=== PATIENT | female | born 1965 | race Caucasian/White ===

== ENCOUNTER 2019-07-31 15:25 | Observation (INO) | payer OTHER, SELFPAY ==
[2019-07-31] VITALS (10 sets, daily range): BP systolic 138–167; BP diastolic 84–108; PULSE 71–119; RESP 16–18; TEMP 36.2–36.9; O2SAT 99–100; BMI 23.8
--- NOTE | ~2019-07-31 | XR_ITS ---
XR chest 1V portable DATE: 07/31/2019 16:26 INDICATION: Chest tightness TECHNIQUE: Portable upright AP chest on 07/31/2019 at 1615 hours COMPARISON: None FINDINGS: Size. No hilar or mediastinal enlargement. No pulmonary infiltrate or consolidation, pleura l effusion or pulmonary vascular congestion or pneumothorax. IMPRESSION: No active cardiopulmonary disease Reviewed, dictated and finalized at location A.
--- NOTE | ~2019-07-31 | XR_ITS ---
XR abdomen NG/feed tube insert INDICATION: Evaluate NG tube position. TECHNIQUE: Limited KUB perform for evaluating NG tube . COMPARISON: No prior studies for comparison. FINDINGS: NG tube tip in the stomach, side port near the expected location of the GE junction. Visua lized bowel gas pattern is unremarkable. IMPRESSION: 1: NG tube tip in the stomach, side port near the expected location of the GE junction. Reviewed, dictated and finalized at location A.
--- NOTE | 2019-07-31 15:48 | ECG_ITS ---
Measurements Intervals [place] Rate: 92 P: 54 MO: 187 QRS: -20 QRSD: 80 T: 0 QT: 364 QTc: 450 Interpretive Statements SINUS RHYTHM RSR' IN V1 OR V2, CONSIDER RIGHT VENTRICULAR HYPERTROPHY OR RIGHT VCD LOW QRS VOLTAGE IN PRECORDIAL LEADS BORDERLINE T WAVE ABNORMALITY- ANT/INF LEADS BORDERLINE ECG Electronically Signed On 07-31-2019 16:37:30 CDT by Jalen Claudio D.O.
--- NOTE | 2019-07-31 15:51 | ED.GIBLEED ---
HPI - GI Bleed General Chief complaint: GI Bleed Stated complaint: Rectal/vomiting blood Time Seen by Provider: 07/31/19 15:32 Source: patient Mode of arrival: ambulatory Limitations: no limitations History of Present Illness HPI Narrative: 54 yo female with h/o HTN, alcohol abuse who presents for evaluation of hematemesis and melena. Patient states last night after dinner she developed upper abdominal cramping with nausea and vomiting. She states the first episode of emesis last night had undigested food and a small amount of blood. She states she didn't think much of it so she went to bed. She reports this morning she had had 3 episodes of hematemsis. She reports Diffuse abdominal cramping with 3 episodes of bright red blood emesis. Her last episode prior to arrival had only a small streak of blood with phlegm. She developed melena this morning. She denies dizziness, sob, or lightheadness. She denies history of cirrhosis , PUD, or esophageal varicese. She does admit to drinking 4 beers per night for 20 years. She denies history withdrawal seizures but she does reports increased shakiness without drinking. She last drank last night. She had EGD 10 years for GERD. MD complaint: gross hematemesis and melena Onset (ago): day(s) (1) Context: liver disease and alcohol abuse Associated symptoms: abdominal pain, nausea and vomiting Related Data Home Medications Medication Instructions Recorded Confirmed albuterol sulfate 90 mcg/actuation 2 puff INHALATION Q4-6H PRN gm 07/20/19 07/31/19 aerosol inhaler folic acid 400 mcg tablet 0.4 mg PO DAILY 07/20/19 07/31/19 Allergies Allergy/AdvReac Type Severity Reaction Status Date / Time codeine Allergy Unknown Unknown Verified 07/31/19 22:13 oats Allergy Hives Verified 07/31/19 22:13 Review of Systems Constitutional: Constitutional: Denies chills, Denies fever(s) and Denies weakness ENT: Denies dizziness Cardiovascular: Cardiovascular: Denies chest pain Respiratory: Respiratory: Denies cough and Denies dyspnea Gastrointestinal: Gastrointestinal: Reports abdominal pain, Denies bloating, Reports nausea and Reports vomiting Genitourinary: Genitourinary: Denies hematuria and Denies flank pain Psychiatric: Psychiatric: Reports anxiety PMFSH Past Medical History Medical History (Updated 07/31/19 @ 23:12 by Mary Beth Rey MD) GERD (gastroesophageal reflux disease) Hypertension Surgical History Surgical History (Updated 07/31/19 @ 23:05 by Mary Beth Rey MD) H/O hand surgery Social History Social History Smoking packs per day: 0.2 Smoking cigarettes per day: 4.0 Years smoked: 5 Smoking pack-years: 1.00 Smoking status: Former smoker Tobacco type: cigarettes Smoking end date: 04/22/09 Alcohol intake: current Drinks per week: 42 Substance use: never Substance use type: does not use Gender identity (if verbalized by the patient): Female Spiritual care concerns: No Agree to blood products: Yes Exam Const: General: alert Nutritional Appearance: thin Orientation/consciousness: patient oriented x3 HENMT: Head: normocephalic and atraumatic Mouth: Yes Normal oral and palatal mucosa present and Yes lip normal Throat: posterior oropharynx normal and tonsils normal Eyes: Conjunctivae: conjunctivae normal Pupils: Equal, round and reactive pupils present EOM: EOMs intact bilaterally Chest: Chest palpation & inspection: normal inspection of the chest Resp: Effort & Inspection: normal respiratory effort and no use of accessory muscles Auscultation: clear to auscultation bilaterally Cardio: Rate: tachycardic Rhythm: regular rhythm Heart sounds: no murmurs GI: Inspection: non-distended GI Palp: Yes Soft to palpation, Yes Tenderness to palpation present (GI) (diffuse), No Guarding due to palpation present (GI) and No Rigid due to palpation Rectal Exam: normal sphincter tone and heme positive stool (no gross blood)
[2019-07-31 16:09] LABS: Basophils Absolute Auto 0.1 K/mm3 (0.0-0.1); Basophils Percent Auto 1.2 % (0.2-1.2); Eosinophils Percent Auto 0.1 % (0-4.4); Hematocrit 33.6 % (37.0-47.0); Immature Granulocyte Absolute 0.04 K/mm3 (0.00-0.031); Immature Granulocyte Percent A 0.4 % (0-0.5); Lymphocytes Absolute Auto 0.79 K/mm3 (0.9-3.2); Lymphocytes Percent Auto 8.3 % (18.3-44.2); Mean Corpuscular HGB Conc 32.7 g/dl (32-36); Mean Corpuscular Hemoglobin 32.4 pg (26-34); Mean Corpuscular Volume 98.8 fl (80-100); Monocytes Absolute Auto 1.1 K/mm3 (0.1-0.6); Monocytes Percent Auto 11.9 % (2.6-8.5); Neutrophils Absolute Auto 7.4 K/mm3 (1.3-6.7); Neutrophils Percent Auto 78.1 % (45.5-73.1); Platelet Count Result 164 k/mm3 (150-375); Red Cell Distribution Width 16.4 % (11.5-14.5); White Blood Count 9.5 K/mm3 (4.5-10.0)
[2019-07-31] MEDS: LACTATED RINGERS 1,000 ML 999 ML IV CONT (16:11)
[2019-07-31] MEDS: ONDANSETRON INJ 4 MG/2 ML VIAL IV PUSH ×2 (16:11→21:23)
[2019-07-31 16:18] LABS: INR 1.2; Prothrombin Time 14.9 Seconds (11.1-14.7)
[2019-07-31 16:19] LABS: Partial Thromboplastin Time 36.3 SECONDS (22.3-36.8)
[2019-07-31 16:24] LABS: Ethanol < 10 mg/dL (<10); Lactic Acid Reflex 1.9 mmol/L (0.7-2.1)
[2019-07-31 16:31] LABS: Alanine Aminotransferase 25 U/L (4-35); Albumin Level 4.2 g/dL (3.5-5.1); Alkaline Phosphatase 222 U/L (38-126); Aspartate Amino Transferase 118 U/L (14-36); Bilirubin,Total 2.1 mg/dL (0.2-1.3); Blood Urea Nitrogen 13 mg/dL (7-17); Calcium 9.4 mg/dL (8.4-10.2); Carbon Dioxide 24 mmol/L (22-30); Chloride 101 mmol/L (98-107); Estimated CRCL calculation 115 ml/min; Estimated Glomerular Filt Rate > 60; Glucose 106 mg/dL (65-105); Lipase 121 U/L (23-300); Magnesium 1.7 mg/dL (1.6-2.3); Potassium 3.7 mmol/L (3.4-5.0); Sodium 135 mmol/L (137-145)
[2019-07-31] MEDS: PANTOPRAZOLE SODIUM IV 40 MG VIAL 80 MG IV PUSH (17:59)
--- NOTE | 2019-07-31 18:03 | PC.NURSE ---
1000 ml of water was lavaged through NG tube. 1st 500 mls was a light pink color, 2nd 500ml was more red and with clots. Informed Dr. Rey of this,
[2019-07-31 18:48] LABS: Hematocrit 27.8 % (37.0-47.0); Hemoglobin 8.9 g/dL (12.0-15.0)
--- NOTE | 2019-07-31 21:36 | ADMGEN ---
This patient, Na Brasher, was admitted to IMU Room 231-01 on 07/31/19 at 1930. Patient/family oriented to hospital policies and general routines including ID bracelet, bed and alarms, visiting hours, pain management, procedures, bathroom and other care routines, personal items, smoking policy, room service/diet, and visiting hours. Valuables list has been completed. Information on how to activate the Rapid Response Team has been discussed. Patient/Family are encouraged to report perceived risks to care and to ask questions if they do not understand what they are told or what they should do.
[2019-07-31] MEDS: LORAZEPAM INJ 2 MG/ML VIAL 1 MG IV PUSH (23:08)
--- NOTE | 2019-07-31 23:40 | PM.IMHP ---
H&P: HPI History of Present Illness Chief complaint: upper GI bleeding, alcohol abuse Narrative: Na Brasher is a 54 year old female who has a history of alcoholism. The patient drinks approximately 6 beers a day. The patient started that she started having hematemesis yesterday. She stated that she only had a beer and half yesterday and thought that it was too but she continued to drink while she was vomiting blood. The patient typically drinks every day. She continued to vomit blood today. Having dark stools. Last night she had some abdominal distention and cramping with nausea vomiting. This morning patient had 3 episodes of hematemesis. The patient had no fever no chills. She does have restless leg syndrome and she is having some hand tremors. She is very anxious at this time. Last time she drink was last night. She did have an EGD about 10 years ago but stated there were no problems. An NG-tube was placed in the right near. The patient is complaining of having some sore throat. H&H today 8.9 in 27.8. 2 units of packed red blood cells were ordered for the patient. Dr. alonso was consulted. The patient was started on a Protonix drip. She is just complaining her 1st unit of packed red blood cells. Ringer's was ordered as well. Date of service 07/31/2019 Review of Systems Review of Systems: All systems reviewed & are unremarkable except as noted in HPI and below Constitutional: Constitutional: Reports as per HPI and Reports no additional constitutional complaints Eyes: Eyes: Reports as per HPI and Reports no additional eye complaints ENT: Reports system reviewed and no additional complaints, except as documented and Reports Normal hearing present Cardiovascular: Cardiovascular: Reports no additional cardiovascular complaints Respiratory: Respiratory: Reports no additional respiratory complaints and Reports no additional respiratory complaints Gastrointestinal: Gastrointestinal: Reports as per HPI and Reports no additional gastrointestinal complaints Musculoskeletal: Musculoskeletal: Reports no additional musculoskeletal complaints Integumentary/Breasts: Skin/Breast: Reports system reviewed and no additional complaints, except as docu and Reports as per HPI Neurologic: Reports system reviewed and no additional complaints, except as documented, Reports as per HPI and Reports Normal hearing present Psychiatric: Psychiatric: Reports no additional psychiatric complaints and Reports as per HPI Endocrine: Endocrine: Reports no additional endocrine complaints Hematologic/Lymphatic: Hematologic/Lymphatic: Reports no additional hematologic/lymphatic complaints Allergic/Immunologic: Allergic/Immunologic: Reports no additional allergic/immunologic complaints [facility] Past Medical History Medical History (Updated 07/31/19 @ 23:57 by Na Mathis NP) Asthma GERD (gastroesophageal reflux disease) Hypertension Peripheral neuropathy Surgical History Surgical History (Updated 07/31/19 @ 23:57 by aN Mathis NP) H/O hand surgery Left hand with plates and screws. 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 She has 2 children. She desires to be a full code. Smoking packs per day: 0.2 Smoking cigarettes per day: 4.0 Years smoked: 5 Smoking pack-years: 1.00 Smoking status: Former smoker Tobacco type: cigarettes Smoking end date: 04/22/09 Alcohol intake: current Drinks per week: 42 Substance use: never Substance use type: does not use Living arrangements: with family Occupation/Edu
[2019-08-01] VITALS (16 sets, daily range): BP systolic 107–168; BP diastolic 73–91; PULSE 77–112; RESP 14–28; TEMP 36.3–37.3; O2SAT 97–100
[2019-08-01] MEDS: LACTATED RINGERS 1,000 ML 125 ML IV CONT (01:08)
[2019-08-01 01:34] LABS: Hematocrit 29.4 % (37.0-47.0); Hemoglobin 9.7 g/dL (12.0-15.0)
[2019-08-01 05:15] LABS: Basophils Absolute Auto 0.1 K/mm3 (0.0-0.1); Basophils Percent Auto 1.3 % (0.2-1.2); Eosinophils Absolute Auto 0.1 K/mm3 (0-0.3); Eosinophils Percent Auto 1.2 % (0-4.4); Hematocrit 29.2 % (37.0-47.0); Hemoglobin 9.8 g/dL (12.0-15.0); Immature Granulocyte Absolute 0.05 K/mm3 (0.00-0.031); Immature Granulocyte Percent A 0.5 % (0-0.5); Immature Platelet Fraction Pct 6.2 % (0.9-11.2); Lymphocytes Absolute Auto 1.12 K/mm3 (0.9-3.2); Mean Corpuscular HGB Conc 33.6 g/dl (32-36); Mean Corpuscular Hemoglobin 32.7 pg (26-34); Mean Corpuscular Volume 97.3 fl (80-100); Mean Platelet Volume 11.2 fl (7.4-10.4); Monocytes Absolute Auto 1.4 K/mm3 (0.1-0.6); Monocytes Percent Auto 15.1 % (2.6-8.5); Neutrophils Absolute Auto 6.5 K/mm3 (1.3-6.7); Neutrophils Percent Auto 69.9 % (45.5-73.1); Platelet Count Result 117 k/mm3 (150-375); White Blood Count 9.3 K/mm3 (4.5-10.0)
[2019-08-01 05:26] LABS: INR 1.3; Prothrombin Time 15.4 Seconds (11.1-14.7)
[2019-08-01 05:34] LABS: Alanine Aminotransferase 19 U/L (4-35); Albumin Level 3.3 g/dL (3.5-5.1); Alkaline Phosphatase 175 U/L (38-126); Aspartate Amino Transferase 78 U/L (14-36); Bilirubin,Total 1.7 mg/dL (0.2-1.3); Blood Urea Nitrogen 14 mg/dL (7-17); Calcium 8.2 mg/dL (8.4-10.2); Carbon Dioxide 23 mmol/L (22-30); Chloride 103 mmol/L (98-107); Estimated CRCL calculation 115 ml/min; Estimated Glomerular Filt Rate > 60; Glucose 100 mg/dL (65-105); Magnesium 1.5 mg/dL (1.6-2.3); Potassium 3.5 mmol/L (3.4-5.0); Sodium 133 mmol/L (137-145)
[2019-08-01 06:40] LABS: Folic Acid 17.9 ng/mL (2.76->20)
[2019-08-01 07:52] LABS: Free T4 Free Thyroxine Reflex 1.75 ng/dL (0.78-2.19)
--- NOTE | 2019-08-01 07:53 | WPDGICN ---
Assessment and Plan Assessment and plan (1) Upper gastrointestinal hemorrhage: Code(s): K92.2 - Gastrointestinal hemorrhage, unspecified Status: Acute Assessment and Plan: Upper GI bleeding manifested by melenic stools and hematemesis. Blood loss anemia identified. Plan is for IV Protonix. An EGD will be performed today. Patient's risk factor appears to be from alcohol use. Ulcer disease is suspected but varices cannot be excluded further recommendations will be given after endoscopy. (2) Hematemesis: Code(s): K92.0 - Hematemesis Status: Acute (3) GERD (gastroesophageal reflux disease): Code(s): K21.9 - Gastro-esophageal reflux disease without esophagitis Status: Acute Assessment and Plan: Patient has a history of chronic GE reflux disease. Notes frequent epigastric pain she is already taking omeprazole daily. Dose medicine may need to be adjusted after endoscopy is accomplished. (4) Alcoholism: Code(s): F10.20 - Alcohol dependence, uncomplicated Status: Acute Assessment and Plan: Patient has a long history of alcohol abuse. We may need to watch for signs of alcohol withdrawal if she discontinues this medication. GI Consult Note Consult date/time: 08/01/19 07:53 HPI: Na Brasher is a 54 year old female seen in evaluation at the request of the emergency room. Patient known to have a history of alcoholism. She typically drinks 6 beers a day. In usual state of health she vomited some blood on . On Saturday yesterday she began to have black melenic stools and vomited a large amount of bright red blood. This prompted her to go to the emergency room and was admitted. Patient denies abdominal pain. She denies any prior episodes of GI bleeding. She denies taking anticoagulation. She denies nonsteroidal anti-inflammatory agents. In the past she has been told she had GE reflux disease. She typically has mid epigastric discomfort for which she takes omeprazole daily. Family history is noncontributory. Review of Systems Review of Systems: All systems reviewed & are unremarkable except as noted in HPI and below PMFSH Past Medical History Medical History Asthma GERD (gastroesophageal reflux disease) Hypertension Peripheral neuropathy Surgical History Surgical History H/O hand surgery Left hand with plates and screws. History of tonsillectomy Family History Family History Father Family history of cardiovascular disease Hypertension Cancer CHF (congestive heart failure) Mother Brain cancer Skin cancer Social History Social History (Updated 08/01/19 @ 00:01 by Na Mathis NP) Social History: She is to Gulshan and desires to have him as a durable power senior technical support engineer for healthcare. She has 2 children. She desires to be a full code. 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
[2019-08-01] MEDS: LACTATED RINGERS 1,000 ML 150 ML IV CONT (08:31)
--- NOTE | 2019-08-01 08:44 | WPDANESEPPF ---
Anes - Initial Pre Proc Eval Procedure: Operation Date: 08/01/19 08:30 Proposed Procedures p Esophagogastroduodenoscopy - Adolfo Zamorano MD Date/Time: 08/01/19 08:44 Surgeon: Melony Suggs MD Pre Op Diagnosis: upper GI bleeding, alcohol abuse Patient Data Age: 54 Gender: F Height: 1.63 m Weight: 55.7 kg Last Vital Signs Temp 37.3 C 08/01/19 08:35 Pulse 86 08/01/19 08:35 Resp 20 08/01/19 08:35 BP 152/85 H 08/01/19 08:35 Pulse Ox 100 08/01/19 08:35 Allergies Allergy/AdvReac Type Severity Reaction Status Date / Time codeine Allergy Unknown Unknown Verified 07/31/19 22:13 oats Allergy Hives Verified 07/31/19 22:13 Home Medications Medication Instructions Recorded Confirmed Type omeprazole 40 mg capsule,delayed 40 mg PO DAILY #90 cap 03/18/19 07/31/19 Rx release albuterol sulfate 90 mcg/actuation 2 puff INHALATION Q4-6H PRN gm 07/20/19 07/31/19 History aerosol inhaler folic acid 400 mcg tablet 0.4 mg PO DAILY 07/20/19 07/31/19 History lisinopril 10 1 tablet PO DAILY #90 tablet 07/20/19 07/31/19 Rx mg-hydrochlorothiazide 12.5 mg tablet Laboratory Tests 07/31/19 07/31/19 07/31/19 16:02 16:02 16:02 WBC 9.5 K/mm3 K/mm3 (4.5-10.0) RBC 3.40 M/mm3 L M/mm3 (4.2-5.4) Hgb 11.0 g/dL L g/dL (12.0-15.0) Hct 33.6 % L % (37.0-47.0) MCV 98.8 fl fl (80-100) MCH 32.4 pg pg (26-34) MCHC 32.7 g/dl g/dl (32-36) RDW 16.4 % H % (11.5-14.5) Plt Count 164 k/mm3 k/mm3 (150-375) MPV 11.0 fl H fl (7.4-10.4) Immature Gran % (Auto) 0.4 % % (0-0.5) Neut % (Auto) 78.1 % H % (45.5-73.1) Lymph % (Auto) 8.3 % L % (18.3-44.2) Dolores % (Auto) 11.9 % H % (2.6-8.5) Eos % (Auto) 0.1 % % (0-4.4) Baso % (Auto) 1.2 % % (0.2-1.2) Lymph # (Auto) 0.79 K/mm3 L K/mm3 (0.9-3.2) [place] # (Auto) 1.1 K/mm3 H K/mm3 (0.1-0.6) Eos # (Auto) 0.0 K/mm3 K/mm3 (0-0.3) Baso # (Auto) 0.1 K/mm3 K/mm3 (0.0-0.1) Abs Immat Gran (auto) 0.04 K/mm3 H K/mm3 (0.00-0.031) Absolute Neuts (auto) 7.4 K/mm3 H K/mm3 (1.3-6.7) Absolute Nucleated RBC 0.0 K/mm3 K/mm3 (0.0-0.012) Nucleated RBC % 0.0 % % (0.0-0.2) % Immature Plt Fraction PT 14.9 Seconds H Seconds (11.1-14.7) INR 1.2 APTT 36.3 SECONDS SECONDS (22.3-36.8) Sodium Potassium Chloride Carbon Dioxide BUN Creatinine Estim Creat Clear Calc Estimated GFR Glucose Lactic Acid Calcium Magnesium Total Bilirubin AST ALT Alkaline Phosphatase Total Protein Albumin Lipase Vitamin B12 Folate TSH (Reflex) Free T4 Total T3 Ethyl Alcohol Blood Type O Positive Antibody Screen Negative Crossmatch See Detail 07/31/19 07/31/19 07/31/19 16:02 16:02 16:02 WBC RBC Hgb Hct MCV MCH MCHC RDW Plt Count MPV Immature Gran % (Auto) Neut % (Auto) Lymph % (Auto) Dolores % (Auto) Eos % (Auto) Baso % (Auto) Lymph # (Auto) Dolores # (Auto) Eos # (Auto) Baso # (Auto) Abs Immat Gran (auto) Absolute Neuts (auto) Absolute Nucleated RBC Nucleated RBC % % Immature Plt Fraction PT INR APTT Sodium
[2019-08-01 08:58] LABS: Total Triiodothyronine (T3) 1.17 NG/ML (0.97-1.69)
[2019-08-01] MEDS: THIAMINE HCL 200 MG/2 ML VIAL 100 MG IV PUSH (10:09)
[2019-08-01] MEDS: FOLIC ACID 1 MG/0.2 ML INJ IV PUSH (10:09)
[2019-08-01] MEDS: MAGNESIUM SULF 2 GM/WATER 50ML 2 GM/50 ML BAG IVPB (10:10)
--- NOTE | 2019-08-01 11:55 | PC.NURSE ---
This patient, Na Brasher, was transferred to [facility] on 08/01/19 at 1155. Personal belongings sent with patient. Belongings list checked and signed with receiving RN. Report given to YESSICA Bui. Appropriate documentation sent with patient.
--- NOTE | 2019-08-01 12:12 | PC.NURSE ---
This patient, Na Brasher, was received from [facility] on 08/01/19 at 1212. Personal belongings list checked and signed. Patient/family oriented to unit policies and routines
[2019-08-01 12:30] LABS: Basophils Absolute Auto 0.1 K/mm3 (0.0-0.1); Basophils Percent Auto 1.1 % (0.2-1.2); Eosinophils Absolute Auto 0.1 K/mm3 (0-0.3); Eosinophils Percent Auto 0.9 % (0-4.4); Hematocrit 31.5 % (37.0-47.0); Hemoglobin 10.3 g/dL (12.0-15.0); Immature Granulocyte Absolute 0.05 K/mm3 (0.00-0.031); Immature Granulocyte Percent A 0.5 % (0-0.5); Lymphocytes Absolute Auto 0.87 K/mm3 (0.9-3.2); Lymphocytes Percent Auto 9.2 % (18.3-44.2); Mean Corpuscular HGB Conc 32.7 g/dl (32-36); Mean Corpuscular Hemoglobin 32.1 pg (26-34); Mean Corpuscular Volume 98.1 fl (80-100); Monocytes Absolute Auto 1.3 K/mm3 (0.1-0.6); Monocytes Percent Auto 13.2 % (2.6-8.5); Neutrophils Absolute Auto 7.1 K/mm3 (1.3-6.7); Neutrophils Percent Auto 75.1 % (45.5-73.1); Platelet Count Result 118 k/mm3 (150-375); Red Blood Count 3.21 M/mm3 (4.2-5.4); Red Cell Distribution Width 16.3 % (11.5-14.5); White Blood Count 9.5 K/mm3 (4.5-10.0)
--- NOTE | 2019-08-01 13:07 | PM.IMPN ---
Progress Note: A&P Assessment and Plan (1) Upper gastrointestinal hemorrhage: Code(s): K92.2 - Gastrointestinal hemorrhage, unspecified Status: Acute Assessment and Plan: . She received 2 units of packed red blood cells. EGD today varices which were banded. Patient is on a Protonix drip. Zofran for nausea. Then continue with IV fluids. Clear liquids started..hgb stable at 9.8 (2) Alcohol withdrawal: Qualifiers: Complication of substance-induced condition: uncomplicated Qualified Code(s): F10.230 - Alcohol dependence with withdrawal, uncomplicated Code(s): F10.239 - Alcohol dependence with withdrawal, unspecified Status: Acute Assessment and Plan: Continue to monitor CIWA score. Ativan p.r.n. for anxiety and alcohol withdrawal. At this time her symptoms are mild.and schedule librium 25 q 8 (3) Restless leg syndrome: Code(s): G25.81 - Restless legs syndrome Status: Acute Assessment and Plan: Patient used to take gabapentin but no longer takes gabapentin. . She has p.r.n. Ativan. (4) Peripheral neuropathy: Code(s): G62.9 - Polyneuropathy, unspecified Status: Acute Assessment and Plan: She no longer takes gabapentin. Hopefully the p.r.n. Ativan will help. (5) Anxiety: Code(s): F41.9 - Anxiety disorder, unspecified Status: Acute Assessment and Plan: P.r.n. Ativan. and now po librium (6) Asthma: Code(s): J45.909 - Unspecified asthma, uncomplicated Status: Acute Assessment and Plan: P.r.n. albuterol. (7) Hypertension: Code(s): I10 - Essential (primary) hypertension Status: Acute Assessment and Plan: bp rebounding so restart MARIANA am 08/01 Subjective Date/time seen: 08/01/19 13:07 Interval history: 54-year-old hypertensive white female alcoholic presented with vomiting blood. EGD today revealed varices with stigmata of recent bleeding. Presently no nausea or abdominal pain and started on clear liquids per GI. Exam Narrative: Exam Narrative: Blood pressure 142/82 pulse is 86 saturating 100% room air afebrile Pupils equal reactive to light sclera appear anicteric Lungs clear CV regular rate rhythm no murmurs Abdomen is soft nontender bowel sounds are present Extremities without edema distal pulses are 2+ Neuro alert cooperative pleasant no focal deficits Objective Data Vital Signs Vital Signs: Vital Signs - 24 hr 07/31/19 15:29 07/31/19 16:40 07/31/19 18:41 Temperature 36.9 C Pulse Rate 119 H 101 H 89 Pulse Rate [Monitor] Respiratory Rate 18 18 Blood Pressure 167/97 H 146/84 H 146/108 H Pulse Oximetry 100 100 07/31/19 19:30 07/31/19 19:40 07/31/19 22:00 Temperature 36.2 C L Pulse Rate 93 94 103 H Pulse Rate [Monitor] Respiratory Rate 18 18 Blood Pressure 146/88 H Pulse Oximetry 100 100 07/31/19 22:09 07/31/19 22:19 07/31/19 22:24 Temperature 36.9 C 36.6 C Pulse Rate 71 101 H Pulse Rate [Monitor] 71 Respiratory Rate 16 16 Blood Pressure 159/93 H 143/90 H Pulse Oximetry 100 99 07/31/19 23:24 08/01/19 00:00 08/01/19 00:24 Temperature 36.3 C L 37.1 C 36.3 C L Pulse Rate 84 82 82 Pulse Rate [Monitor] 82 Respiratory Rate 16 16 16 Blood Pressure 148/85 H 141/90 H 152/76 H Pulse Oximetry 99 98 99 08/01/19 00:48 08/01/19 02:00 08/01/19 04:00 Temperature 36.6 C 36.8 C Pulse Rate 81 92 104 H Pulse Rate [Monitor] 104 H Respiratory Rate 16 16 Blood Pressure 168/91 H 146/89 H Pulse Oximetry 99 100 08/01/19 06:00 08/01/19 08:00 08/01/19 08:14 Temperature 37.1 C Pulse Rate 80 93 92 Pulse Rate [Monitor] Respiratory Rate 14 Blood Pressure 146/89 H Pulse Oximetry 100 08/01/19 08:35 08/01/19 09:11 08/01/19 09:21 Temperature 37.3 C Pulse Rate 86 97 88 Pulse Rate [Monitor] Respiratory Rate 20 28 H 26 H Blood Pressure 152/85 H 107/73 120/85 Pulse Oximetry 100 97 100 08/01/19 09:31 0
[2019-08-01] MEDS: LACTATED RINGERS 1,000 ML 75 ML IV CONT (14:27)
[2019-08-01] MEDS: POTASSIUM CHLORIDE 20 MEQ TABLET 40 MEQ PO (14:28)
[2019-08-01] MEDS: lisinopriL 10 MG TABLET PO (14:28)
[2019-08-01] MEDS: CHLORDIAZEPOXIDE 25 MG CAPSULE PO ×2 (14:28→22:23)
[2019-08-02] MEDS: LACTATED RINGERS 1,000 ML 75 ML IV CONT (03:24)
[2019-08-02 04:51] LABS: Basophils Absolute Auto 0.1 K/mm3 (0.0-0.1); Basophils Percent Auto 0.9 % (0.2-1.2); Eosinophils Absolute Auto 0.2 K/mm3 (0-0.3); Eosinophils Percent Auto 2.9 % (0-4.4); Hematocrit 27.9 % (37.0-47.0); Hemoglobin 8.9 g/dL (12.0-15.0); Immature Granulocyte Absolute 0.02 K/mm3 (0.00-0.031); Immature Granulocyte Percent A 0.3 % (0-0.5); Lymphocytes Absolute Auto 1.01 K/mm3 (0.9-3.2); Lymphocytes Percent Auto 13.4 % (18.3-44.2); Mean Corpuscular HGB Conc 31.9 g/dl (32-36); Mean Corpuscular Hemoglobin 31.8 pg (26-34); Mean Corpuscular Volume 99.6 fl (80-100); Mean Platelet Volume 10.8 fl (7.4-10.4); Monocytes Absolute Auto 1.1 K/mm3 (0.1-0.6); Monocytes Percent Auto 14.5 % (2.6-8.5); Neutrophils Absolute Auto 5.1 K/mm3 (1.3-6.7); Platelet Count Result 116 k/mm3 (150-375); Red Cell Distribution Width 16.1 % (11.5-14.5); White Blood Count 7.5 K/mm3 (4.5-10.0)
[2019-08-02 05:05] LABS: Alanine Aminotransferase 20 U/L (4-35); Alkaline Phosphatase 137 U/L (38-126); Aspartate Amino Transferase 94 U/L (14-36); Bilirubin,Total 1.4 mg/dL (0.2-1.3); Blood Urea Nitrogen 12 mg/dL (7-17); Calcium 8.2 mg/dL (8.4-10.2); Carbon Dioxide 25 mmol/L (22-30); Chloride 106 mmol/L (98-107); Estimated CRCL calculation 115 ml/min; Estimated Glomerular Filt Rate > 60; Glucose 100 mg/dL (65-105); Magnesium 1.8 mg/dL (1.6-2.3); Phosphorus 3.2 mg/dL (2.5-4.5); Potassium 3.8 mmol/L (3.4-5.0); Sodium 134 mmol/L (137-145)
[2019-08-02 05:47] VITALS: BP 129/68; PULSE 93; RESP 18; TEMP 36.7; O2SAT 99
[2019-08-02] MEDS: CHLORDIAZEPOXIDE 25 MG CAPSULE PO (06:31)
--- NOTE | 2019-08-02 07:59 | WPDGIPROGNO ---
Progress Note: A&P Additional Plan Patient alert and comfortable this morning. No significant additional bleeding described. No some substernal discomfort after banding yesterday. Tolerating liquid diet without difficulty. Physical exam alert. Vital signs stable. HEENT exam unremarkable. She is anicteric. Lungs are clear to auscultation and percussion. Heart without murmur. Abdomen is soft. No significant tenderness. She reports pain in the low mid substernal area. Labs reveal total bilirubin 1.4, direct bilirubin 0, AST 94, ALT 20, alk-phos 137. Hemoglobin 8.9, hematocrit 27.9. Impression 1. Esophageal varices. Status post banding. These appear to have been etiology for recent GI bleeding. Blood loss anemia now stable after transfusion. 2. Alcoholic hepatitis. May have a component of underlying cirrhosis as well. 3. Alcohol abuse. Plan to advance to a soft diet. Continue proton pump inhibitors after discharge. She may benefit from low-dose beta-barron therapy such as Inderal. Follow-up EGD in 2 months advised for additional banding. Hopefully we can discharge her later today. Subjective Date/time seen: 08/02/19 07:59 Objective Data Vital Signs Vital Signs: Vital Signs - 24 hr 08/01/19 08:00 08/01/19 08:14 08/01/19 08:35 Temperature 37.1 C 37.3 C Pulse Rate 93 92 86 Respiratory Rate 14 20 Blood Pressure 146/89 H 152/85 H Pulse Oximetry 100 100 08/01/19 09:11 08/01/19 09:21 08/01/19 09:31 Temperature Pulse Rate 97 88 83 Respiratory Rate 28 H 26 H 23 H Blood Pressure 107/73 120/85 135/82 Pulse Oximetry 97 100 100 08/01/19 10:25 08/01/19 12:10 08/01/19 14:00 Temperature 36.5 C 36.6 C Pulse Rate 86 88 77 Respiratory Rate 16 16 Blood Pressure 142/82 H 153/80 H Pulse Oximetry 100 99 08/01/19 21:27 08/02/19 05:47 Temperature 36.6 C 36.7 C Pulse Rate 87 93 Respiratory Rate 16 18 Blood Pressure 124/75 129/68 Pulse Oximetry 100 99 Intake/Output Intake/Output: Intake & Output 07/30/19 07/31/19 08/01/19 08/02/19 23:59 23:59 23:59 23:59 Intake Total 1000 3711 989 Output Total 400 300 950 Balance 600 3411 39 Meds/Results Medications: Active Medications Generic Name Dose Route Start Last Admin Trade Name Freq PRN Reason Stop Dose Admin Acetaminophen 650 mg 08/01/19 14:14 Tylenol Tablet PO Q6H PRN Mild Pain (1-3) or Fever Albuterol 2 puff 07/31/19 22:31 Proventil Hfa INHALATION Q4-6H PRN Shortness Of Breath Or Wheezing Chlordiazepoxide HCl 25 mg 08/01/19 14:00 08/02/19 06:31 Librium Po PO 25 mg Q8HR LEWIS Administration Folic Acid 1 mg 08/01/19 09:00 08/01/19 10:09 Folic Acid Inj IV PUSH 1 mg QAM LEWIS Administration Lactated Ringer's 1,000 mls @ 75 mls/hr 07/31/19 18:10 08/02/19 03:24 Lr - Lactated Ringers Iv IV CONT 75 mls/hr .[id number] LEWIS Administration Pantoprazole Sodium 80 mg/ 500 mls @ 50 mls/hr 08/01/19 03:30 08/02/19 03:23 Dextrose IV CONT 50 mls/hr .Q10H LEWIS Administration Lisinopril 10 mg 08/01/19 09:00 08/01/19 14:28 Prinivil PO 10 mg DAILY LEWIS Administration Lorazepam 1 mg 07/31/19 22:29 07/31/19 23:08 Ativan Inj IV PUSH 1 mg Q4H PRN Administration Anxiety Ondansetron HCl 4 mg 07/31/19 18:10 07/31/19 21:23 Zofran Inj IV PUSH 4 mg Q4H PRN Administration Nausea Phenol 1 spray 07/31/19 23:52 Chloraseptic [place] MUCOUS MEM PRN PRN Sore Throat Thiamine HCl 100 mg 08/01/19 09:00 08/01/19 10:09 Thiamine Hcl Inj IV PUSH 100 mg QAM LEWIS Administration Radiology Results: ITS Impressions Chest X-Ray 07/31/19 16:27 IMPRESSION: No active cardiopulmonary disease Abdomen X-Ray 07/31/19 18:04 IMPRESSION: 1: NG tube tip in the stomach, side port near the expected location of the GE junction. Labs Labs: Laboratory Results - last 24 hr 08/01/19 08/01/1907/21
--- NOTE | 2019-08-02 08:15 | WPDANESPN ---
Anes - Prog Note Post-Op Date/Time: 08/02/19 08:15 Cardiovascular status: normal Respiratory status: normal Airway patency: baseline Mental status: baseline Post-Op hydration status: normal Vital Signs: Last Vital Signs Temp 36.7 C 08/02/19 05:47 Pulse 93 08/02/19 05:47 Resp 18 08/02/19 05:47 BP 129/68 08/02/19 05:47 Pulse Ox 99 08/02/19 05:47 Pain Score (VAS): 0/10. Patient resting in bed at time of assessment, appears comfortable. I/O: Intake & Output 08/01/19 08/02/19 08/02/19 23:59 07:59 15:59 Intake Total 1111 989 Output Total 950 Balance 1111 39 Laboratory Tests 08/02/19 04:32 08/02/19 04:32 08/01/19 08/01/19 08/02/19 04:32 12:21 04:32 WBC 9.5 RBC 3.21 L Hgb 10.3 L Hct 31.5 L MCV 98.1 MCH 32.1 MCHC 32.7 RDW 16.3 H Plt Count 118 L MPV 11.0 H Immature Gran % (Auto) 0.5 Neut % (Auto) 75.1 H Lymph % (Auto) 9.2 L [place] % (Auto) 13.2 H Eos % (Auto) 0.9 Baso % (Auto) 1.1 Lymph # (Auto) 0.87 L [place] # (Auto) 1.3 H Eos # (Auto) 0.1 Baso # (Auto) 0.1 Abs Immat Gran (auto) 0.05 H Absolute Neuts (auto) 7.1 H Absolute Nucleated RBC 0.0 Nucleated RBC % 0.0 % Immature Plt Fraction 6.0 Sodium 134 L Potassium 3.8 Chloride 106 Carbon Dioxide 25 BUN 12 Creatinine 0.40 L Estim Creat Clear Calc 115 Estimated GFR > 60 Glucose 100 Calcium 8.2 L Phosphorus 3.2 Magnesium 1.8 Total Bilirubin 1.4 H Direct Bilirubin 0.0 AST 94 H ALT 20 Alkaline Phosphatase 137 H Total Protein 6.0 L Albumin 3.0 L Total T3 1.17 08/02/19 04:32 WBC 7.5 RBC 2.80 L Hgb 8.9 L Hct 27.9 L MCV 99.6 MCH 31.8 MCHC 31.9 L RDW 16.1 H Plt Count 116 L MPV 10.8 H Immature Gran % (Auto) 0.3 Neut % (Auto) 68.0 Lymph % (Auto) 13.4 L [place] % (Auto) 14.5 H Eos % (Auto) 2.9 Baso % (Auto) 0.9 Lymph # (Auto) 1.01 [place] # (Auto) 1.1 H Eos # (Auto) 0.2 Baso # (Auto) 0.1 Abs Immat Gran (auto) 0.02 Absolute Neuts (auto) 5.1 Absolute Nucleated RBC 0.0 Nucleated RBC % 0.0 % Immature Plt Fraction Sodium Potassium Chloride Carbon Dioxide BUN Creatinine Estim Creat Clear Calc Estimated GFR Glucose Calcium Phosphorus Magnesium Total Bilirubin Direct Bilirubin AST ALT Alkaline Phosphatase Total Protein Albumin Total T3 Post-procedural complaints: none Patient Feedback: Patient satisfied with anesthetic care.
[2019-08-02 08:56] VITALS: PULSE 93
[2019-08-02] MEDS: PANTOPRAZOLE 40 MG TABLET PO (08:56)
[2019-08-02] MEDS: PROPRANOLOL HCL 20 MG TABLET PO (08:56)
[2019-08-02] MEDS: FOLIC ACID 1 MG/0.2 ML INJ IV PUSH (08:56)
[2019-08-02] MEDS: lisinopriL 10 MG TABLET PO (08:57)
[2019-08-02] MEDS: THIAMINE HCL 200 MG/2 ML VIAL 100 MG IV PUSH (08:57)
[2019-08-02 14:00] VITALS: BP 107/59; PULSE 78; RESP 16; TEMP 37.2; O2SAT 99
--- NOTE | 2019-08-02 17:40 | PM.DS ---
DS: Diagnosis Admitting Diagnosis Admitting Diagnosis: Gastrointestinal hemorrhage, unspecified Discharge Diagnosis (1) Upper gastrointestinal hemorrhage: Code(s): K92.2 - Gastrointestinal hemorrhage, unspecified Status: Acute Assessment and Plan: . She received 2 units of packed red blood cells. EGD 07/31 varices which were banded. Patient is on a Protonix 40 b.i.d. now. Tolerating soft diet and hemoglobin stable at 8.9 with no evidence of further blood loss (2) Alcohol withdrawal: Qualifiers: Complication of substance-induced condition: uncomplicated Qualified Code(s): F10.230 - Alcohol dependence with withdrawal, uncomplicated Code(s): F10.239 - Alcohol dependence with withdrawal, unspecified Status: Acute Assessment and Plan: Continue to monitor CIWA score. Ativan p.r.n. for anxiety and alcohol withdrawal while here but no evidence of overt withdrawal symptoms She was instructed not to drink and given information for rehab. (3) Restless leg syndrome: Code(s): G25.81 - Restless legs syndrome Status: Acute Assessment and Plan: Patient used to take gabapentin but no longer takes gabapentin. . (4) Peripheral neuropathy: Code(s): G62.9 - Polyneuropathy, unspecified Status: Acute Assessment and Plan: She no longer takes gabapentin. (5) Anxiety: Code(s): F41.9 - Anxiety disorder, unspecified Status: Acute Assessment and Plan: P.r.n. Ativan. While here (6) Asthma: Code(s): J45.909 - Unspecified asthma, uncomplicated Status: Acute Assessment and Plan: P.r.n. albuterol. (7) Hypertension: Code(s): I10 - Essential (primary) hypertension Status: Acute Assessment and Plan: Restarted her FABRICE-inhibitor did today. Was probable portal hypertension GI started Inderal 20 b.i.d.. Patient was instructed to continue her usual antihypertensive with propanolol and monitor blood pressure at home. She will follow-up with her primary care within 2 weeks and further adjustments can be made at that time if need be possible discontinue diuretic can continue Fabrice with beta-barron or even beta-barron alone (8) Elevated LFTs: Code(s): R79.89 - Other specified abnormal findings of blood chemistry Status: Acute Assessment and Plan: Thought all secondary to alcohol. Alkaline phosphatase 222 down to 137, AST 198 down to 94, and bilirubin 2.1 down to 1.4. Complete metabolic profile along with CBC to be drawn within 2 weeks DS: Summary Hospital Course Hospital Course: 54-year-old hypertensive white female alcoholic admitted with vomiting blood. She received 2 units of packed cells and bleeding subsided. EGD 411 revealed varices with stigmata of bleeding but no active bleeding. They were banded per GI. Hemoglobin a.m. of discharge 8.9. She tolerated soft diet without any complaints and was able to be discharged home. Inderal 20 mg b.i.d. was added for probable portal hypertension. She will follow-up with primary care within 2 weeks and have a CBC and CMP prior to her visit. Follow-up with Dr. Zamorano with and 68 weeks for repeat EGD Time Spent with Patient Time attestation: Total time spent providing and/or coordinating discharge services: 35 minutes Exam Narrative: Exam Narrative: Condition on discharge Blood pressure 108/60 pulse is 78 saturating 99% on room air temp 37.2? Lungs clear CV regular rate rhythm Abdomen soft nontender bowel sounds normal active Extremities without edema good distal pulses Neuro alert pleasant cooperative no focal deficits She is tolerating a soft diet up and about without any problems and will be discharged home to follow-up with primary care within [address] robertson within 6-8 weeks DS: Data Data Completed and Pending Labs on day of discharge: Labs from last 24 hours 08/02/19 08/02/19 04:32 04:32 WBC 7.5 RBC 2.80 L Hgb 8.9 L
== END 2019-08-02 14:30 | disposition home or self-care (01) ==
LOC: ANHED 15:48 → ANHIMU 23:12 → ANH2MED 08-01 18:57 → ANHIMU 08-03 12:02
PROVIDERS: Internal Medicine Gastroenterology; Nurse Practitioner; Admitting Provider Family Medicine; Emergency Provider General Practice; PCP Family Medicine; Visit Provider Internal Medicine
PROC: 0DJ08ZZ Inspection of Upper Intestinal Tract, Via Natural or Artificial Opening Endoscopic (ICD-10-PCS; CPT 43235; principal; 2019-08-01 08:30)
DX: K92.2 Gastrointestinal hemorrhage, unspecified (principal); F10.230 Alcohol dependence with withdrawal, uncomplicated; I85.00 Esophageal varices without bleeding; K21.9 Gastro-esophageal reflux disease without esophagitis; K44.9 Diaphragmatic hernia without obstruction or gangrene; D50.0 Iron deficiency anemia secondary to blood loss (chronic); F41.9 Anxiety disorder, unspecified; R79.89 Other specified abnormal findings of blood chemistry; G25.81 Restless legs syndrome; I10 Essential (primary) hypertension; J45.909 Unspecified asthma, uncomplicated; G62.9 Polyneuropathy, unspecified; Z79.899 Other long term (current) drug therapy; Z87.891 Personal history of nicotine dependence
CPT/HCPCS: 43244; 36415; 36430; 71045; 80053; 80307; 82248; 82607; 82746; 83605; 83690; 83735; 84100; 84439; 84443; 84480; 85014; 85018; 85025; 85055; 85610; 85730; 86850; 86900; 86901; 86923; 93005; 96361; 96365; 96366; 96375; 96376; 99285; A9270; C9113; G0378; J2060; J2405; J2704; J3411; J3475; J7060; J7120; P9016

== ENCOUNTER 2019-10-03 01:13 | Outpatient (CLI) | payer OTHER, SELFPAY ==
[2019-10-03 16:42] LABS: SARS-CoV-2 RNA PCR Negative
== END 2019-10-03 01:14 | disposition home or self-care (01) ==
LOC: ANHCOVIDDT 01:14
PROVIDERS: PCP Family Medicine; Visit Provider Internal Medicine Gastroenterology
DX: Z01.812 Encounter for preprocedural laboratory examination (principal); Z20.828 Contact with and (suspected) exposure to other viral communicable diseases
CPT/HCPCS: 87635; C9803; U0003

== ENCOUNTER 2019-10-06 00:18 | Day surgery (SDC) | payer OTHER, SELFPAY ==
[2019-09-30 07:58] VITALS: BMI 19.6
[2019-10-06 08:28] VITALS: BP 142/80; PULSE 71; RESP 18; TEMP 37.1; O2SAT 100
[2019-10-06] MEDS: LACTATED RINGERS 1,000 ML 150 ML IV CONT (08:42)
--- NOTE | 2019-10-06 09:06 | WPDGICN ---
Assessment and Plan Assessment and plan (1) Esophageal varices: Code(s): I85.00 - Esophageal varices without bleeding Status: Acute Assessment and Plan: Plan is for follow-up EGD and possible placement of additional bands on distal esophageal varices. Beta-barron prophylaxis is encouraged to minimize recurrent variceal bleeding. Long-term alcohol of avoidance is advised. (2) Portal hypertension: Code(s): K76.6 - Portal hypertension Status: Acute Assessment and Plan: Patient has had bleeding from esophageal varices. Alcoholic liver disease is suspected. She may have underlying cirrhosis. Patient is advised to continue alcohol avoidance. Supportive care watch for complications advised at this time. (3) Alcoholism: Code(s): F10.20 - Alcohol dependence, uncomplicated Status: Acute GI Consult Note Consult date/time: 10/06/19 09:06 HPI: Na Brasher is a 54 year old female Seen in evaluation at the request of Dr. Aleida Casanova. Patient recently hospitalized in July of 2019 with hematemesis. Found to have esophageal varices at the time of endoscopy. Esophageal banding was placed she has done well since that time. No additional bleeding has been noted she denies abdominal pain. She denies any additional bleeding. Her weight has remained stable. Patient has been maintained on Protonix 40 mg p.o. b.i.d. with beta-barron suppression since that time. Patient has a history of portal hypertension alcohol abuse. Alcoholic liver disease and cirrhosis is suspected. Review of Systems Review of Systems: All systems reviewed & are unremarkable except as noted in HPI and below [facility] Social History Social History (Updated 08/01/19 @ 00:01 by Na Mathis NP) Social History: She is to [place] and desires to have him as a durable power criminal attorney for healthcare. She has 2 children. She desires to be a full code. 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 [employer] Gender identity (if verbalized by the patient): Female Spiritual care concerns: No Agree to blood products: Yes Meds Home Medications and Allergies Home Medications Medication Instructions Recorded Confirmed Type lisinopril 10 1 tablet PO DAILY #90 tablet 07/20/19 09/30/19 Rx mg-hydrochlorothiazide 12.5 mg tablet pantoprazole 40 mg tablet,delayed 40 mg PO Q12HR #180 tablet 08/14/19 09/30/19 Rx release propranolol 20 mg tablet 20 mg PO Q12HR #180 tablet 08/14/19 10/06/19 Rx folic acid 400 mcg tablet 0.4 mg PO DAILY #90 tablet 08/31/19 09/30/19 Rx albuterol sulfate 90 mcg/actuation 2 puff INHALATION Q4-6H PRN #18 gm 09/18/19 09/30/19 Rx aerosol inhaler potassium chloride 10 mEq 10 meq PO DAILY #30 tablet 09/24/19 09/30/19 Rx tablet,extended release(part/cryst) Allergies Allergy/AdvReac Type Severity Reaction Status Date / Time oats Allergy Hives Verified 10/06/19 08:20 codeine AdvReac Unknown Nausea and Verified 10/06/19 08:20 Vomiting Vital Signs Vital Signs - 24 hr 10/06/19 08:28 Temperature 37.1 C Pulse Rate 71 Respiratory Rate 18 Blood Pressure 142/80 H Pulse Oximetry 100 Exam Narrative: Exam Narrative: Physical exam reveals patient be alert. Oriented x3. She is anicteric. Lungs are clear to auscultation percussion. Heart is without murmur or extra sounds. Abdominal exam bowel sounds are present soft nontender with no organomegaly. Digital rectal exam is deferred at this time.
--- NOTE | 2019-10-06 09:14 | WPDANESEPPF ---
Anes - Initial Pre Proc Eval Procedure: Operation Date: 10/06/19 09:30 Proposed Procedures p Esophagogastroduodenoscopy - Adolfo Zamorano MD Date/Time: 10/06/19 09:14 Surgeon: Adolfo Zamorano MD Pre Op Diagnosis: esophageal varices Patient Data Age: 54 Gender: F Height: 5 ft 4 in Weight: 53.3 kg Last Vital Signs Temp 37.1 C 10/06/19 08:28 Pulse 71 10/06/19 08:28 Resp 18 10/06/19 08:28 BP 142/80 H 10/06/19 08:28 Pulse Ox 100 10/06/19 08:28 Allergies Allergy/AdvReac Type Severity Reaction Status Date / Time oats Allergy Hives Verified 10/06/19 08:20 codeine AdvReac Unknown Nausea and Verified 10/06/19 08:20 Vomiting Home Medications Medication Instructions Recorded Confirmed Type lisinopril 10 1 tablet PO DAILY #90 tablet 07/20/19 09/30/19 Rx mg-hydrochlorothiazide 12.5 mg tablet pantoprazole 40 mg tablet,delayed 40 mg PO Q12HR #180 tablet 08/14/19 09/30/19 Rx release propranolol 20 mg tablet 20 mg PO Q12HR #180 tablet 08/14/19 10/06/19 Rx folic acid 400 mcg tablet 0.4 mg PO DAILY #90 tablet 08/31/19 09/30/19 Rx albuterol sulfate 90 mcg/actuation 2 puff INHALATION Q4-6H PRN #18 gm 09/18/19 09/30/19 Rx aerosol inhaler potassium chloride 10 mEq 10 meq PO DAILY #30 tablet 09/24/19 09/30/19 Rx tablet,extended release(part/cryst) Patient hx anesthesia problems: none Family hx anesthesia problems: none PMFSH Past Medical History Medical History Asthma GERD (gastroesophageal reflux disease) Hypertension Peripheral neuropathy Surgical History Surgical History H/O hand surgery Left hand with plates and screws. History of tonsillectomy Family History Family History Father Family history of cardiovascular disease Hypertension Cancer CHF (congestive heart failure) Mother Brain cancer Skin cancer Social History Social History Social History: She is to [employer] and desires to have him as a durable power business attorney for healthcare. She has 2 children. She desires to be a full code. 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 [employer] Gender identity (if verbalized by the patient): Female Spiritual care concerns: No Agree to blood products: Yes Anes - Eval Final PreProcedure Day of Procedure 10/06/19 09:14 Patient weight: normal Heart: regular rate and rhythm Lungs: clear to auscultation Airway: Mallampati scale class III Neurological: alert and oriented Last oral intake: >/= 8 hours ASA classification: III Emergent: no Anesthetic plan: proceed Anesthesia type and monitoring: general GIVS and standard monitoring Informed Consent: The patient's anesthetic plan and its attendant risks and benefits were discussed with the patient/family/POA. Questions were solicited and answers provided to the satisfaction of the patient/family/POA.
[2019-10-06] MEDS: BENZOCAINE (*SP) 60 ML SPRAY CAN (HURRICAINE) 1 SPRAY MUCOUS MEM (09:52)
[2019-10-06 10:04] VITALS: BP 112/65; PULSE 81; RESP 22; O2SAT 96
[2019-10-06 10:14] VITALS: BP 120/75; PULSE 73; RESP 22; O2SAT 100
[2019-10-06 10:24] VITALS: BP 136/87; PULSE 72; RESP 19; O2SAT 100
== END 2019-10-06 10:46 | disposition home or self-care (01) ==
PROVIDERS: PCP Family Medicine; Visit Provider Internal Medicine Gastroenterology
PROC: 0DJ08ZZ Inspection of Upper Intestinal Tract, Via Natural or Artificial Opening Endoscopic (ICD-10-PCS; CPT 43235; principal; 2019-10-06 09:30)
DX: Q39.4 Esophageal web (principal); I85.10 Secondary esophageal varices without bleeding; K44.9 Diaphragmatic hernia without obstruction or gangrene; F10.20 Alcohol dependence, uncomplicated; K76.6 Portal hypertension; Z87.891 Personal history of nicotine dependence
CPT/HCPCS: 43450; J2704; J7120

== ENCOUNTER 2020-06-26 13:48 | Inpatient (IN) | payer OTHER, SELFPAY ==
[2020-06-26] VITALS (13 sets, daily range): BP systolic 126–160; BP diastolic 74–98; PULSE 74–89; RESP 16–20; TEMP 36.8–37.4; O2SAT 98–100; BMI 20.9
--- NOTE | ~2020-06-26 | US_ITS ---
EXAMINATION: US right upper quadrant DATE: 06/29/2020 09:15 INDICATION: Elevated liver function tests TECHNIQUE: Multiple grayscale and Doppler ultrasound images of the abdomen were obtained. COMPARISON: None available FINDINGS: The head and body of the pancreas are normal. The pancreatic tail is obscured by bowel gas. The liver demonstrates coarse and heterogeneous echotexture. No surface nodularity. Normal hepatopet al flow in the main portal vein. There is a 3 mm polyp of the gallbladder. The gallbladder is otherwi se normal. The normal common bile duct measures 4 mm. There was no sonographic Gilmore sign. IMPRESSION: 1. Coarse and heterogeneous echotexture of the liver, consistent with liver disease. Differential inc ludes hepatitis and steatosis. Reviewed, dictated and finalized at location A. OR MECHANICAL ESTIMATOR IMPRESSION: 1. Coarse and heterogeneous echotexture of the liver, consistent with liver dis ease. Differential includes hepatitis and steatosis.
[2020-06-26 14:23] LABS: Basophils Absolute Auto 0.1 K/mm3 (0.0-0.1); Basophils Percent Auto 1.5 % (0.2-1.2); Eosinophils Absolute Auto 0.1 K/mm3 (0-0.3); Eosinophils Percent Auto 1.2 % (0-4.4); Hematocrit 29.7 % (37.0-47.0); Hemoglobin 9.3 g/dL (12.0-15.0); Immature Granulocyte Absolute 0.06 K/mm3 (0.00-0.031); Immature Granulocyte Percent A 0.7 % (0-0.5); Immature Platelet Fraction Pct 8.2 % (0.9-11.2); Lymphocytes Absolute Auto 0.83 K/mm3 (0.9-3.2); Lymphocytes Percent Auto 9.7 % (18.3-44.2); Mean Corpuscular HGB Conc 31.3 g/dl (32-36); Mean Corpuscular Hemoglobin 28.4 pg (26-34); Mean Corpuscular Volume 90.8 fl (80-100); Neutrophils Absolute Auto 6.4 K/mm3 (1.3-6.7); Neutrophils Percent Auto 74.9 % (45.5-73.1); Platelet Count Result 143 k/mm3 (150-375); Red Blood Count 3.27 M/mm3 (4.2-5.4); Red Cell Distribution Width 17.9 % (11.5-14.5); White Blood Count 8.6 K/mm3 (4.5-10.0)
[2020-06-26] MEDS: ONDANSETRON INJ 4 MG/2 ML VIAL IV PUSH ×3 (14:24→23:41)
[2020-06-26] MEDS: LACTATED RINGERS 1,000 ML 150 ML IV CONT (14:25)
[2020-06-26] MEDS: PANTOPRAZOLE SODIUM IV 40 MG VIAL 80 MG IV PUSH (14:25)
[2020-06-26 14:34] LABS: INR 1.3; Prothrombin Time 16.5 Seconds (11.1-14.7)
[2020-06-26 14:35] LABS: Partial Thromboplastin Time 40.5 SECONDS (22.3-36.8)
[2020-06-26 14:41] LABS: Lipase 155 U/L (23-300)
[2020-06-26 14:45] LABS: Magnesium 1.1 mg/dL (1.6-2.3)
--- NOTE | 2020-06-26 14:51 | ECG_ITS ---
Measurements Intervals [place] Rate: 75 P: 49 MS: 186 QRS: 5 QRSD: 94 T: 1 QT: 407 QTc: 457 Interpretive Statements SINUS RHYTHM LOW QRS VOLTAGE IN PRECORDIAL LEADS BORDERLINE T WAVE ABNORMALITY- ANT/INF LEADS BASELINE WANDER- I, II, AVL, V3 BORDERLINE ECG Electronically Signed On 06-26-2020 18:14:42 ENVIRONMENT COORDINATOR by Jalen Claudio D.O.
[2020-06-26 15:05] LABS: Alanine Aminotransferase 24 U/L (4-35); Alkaline Phosphatase 173 U/L (38-126); Anion Gap 10 mmol/L (8-16); Aspartate Amino Transferase 95 U/L (14-36); Bilirubin,Total 2.9 mg/dL (0.2-1.3); Blood Urea Nitrogen 14 mg/dL (7-17); Calcium 9.2 mg/dL (8.4-10.2); Carbon Dioxide 24 mmol/L (22-30); Chloride 105 mmol/L (98-107); Estimated CRCL calculation 115 ml/min; Estimated Glomerular Filt Rate > 60; Glucose 112 mg/dL (65-105); Potassium 3.9 mmol/L (3.4-5.0); Sodium 139 mmol/L (137-145)
[2020-06-26] MEDS: METOPROLOL TARTRATE INJ 5 MG/5 ML VIAL IV PUSH (15:09)
--- NOTE | 2020-06-26 15:10 | ED.GIBLEED ---
HPI - GI Bleed General Chief complaint: GI Bleed Stated complaint: vomiting blood Time Seen by Provider: 06/26/20 13:56 Source: patient and family Limitations: no limitations History of Present Illness HPI Narrative: 54-year-old female History of alcoholism, alcoholic liver disease, esophageal varices Looks like she might have been banded in July [address] Nicole most recently Reports considerable alcohol intake last night and is vomiting blood and blood clots today Does not have AP No syncope Related Data Allergies Allergy/AdvReac Type Severity Reaction Status Date / Time oats Allergy Hives Verified 06/26/20 14:03 codeine AdvReac Unknown Nausea and Verified 06/26/20 14:03 Vomiting Review of Systems Review of Systems: All systems reviewed & are unremarkable except as noted in HPI and below Constitutional: Constitutional: Denies fever(s), Denies headache(s) and Reports weakness Eyes: Eyes: Reports no additional eye complaints and Denies change in vision ENT: Denies headache(s), Denies epistaxis, Denies nasal congestion and Denies sore throat Cardiovascular: Cardiovascular: Denies chest pain, Denies leg edema, Denies palpitations and Denies dyspnea Respiratory: Respiratory: Denies cough and Denies dyspnea Gastrointestinal: Gastrointestinal: Reports as per HPI, Reports no additional gastrointestinal complaints, Denies abdominal pain, Reports nausea and Reports vomiting Genitourinary: Genitourinary: Denies urinary frequency Musculoskeletal: Musculoskeletal: Denies deformity, Denies muscle weakness and Denies numbness Integumentary/Breasts: Skin/Breast: Denies rash and Denies wounds Neurologic: Denies focal weakness, Denies numbness and Reports weakness Psychiatric: Psychiatric: Reports no additional psychiatric complaints Endocrine: Endocrine: Denies fatigue and Denies palpitations Hematologic/Lymphatic: Hematologic/Lymphatic: Reports easy bleeding and Denies easy bruising [facility] Past Medical History Medical History (Updated 06/26/20 @ 15:24 by Adolfo Gamez MD) Asthma GERD (gastroesophageal reflux disease) Hypertension Peripheral neuropathy Surgical History Surgical History H/O hand surgery Left hand with plates and screws. History of tonsillectomy Family History Family History Father Family history of cardiovascular disease Hypertension Cancer CHF (congestive heart failure) Mother Brain cancer Skin cancer Social History Social History Social History: She is to [place] and desires to have him as a durable power assistant prosecuting attorney for healthcare. She has 2 children. She desires to be a full code. 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 [employer] Gender identity (if verbalized by the patient): Female Spiritual care concerns: No Agree to blood products: Yes Exam Const: General: well developed, awake and ill appearing Nutritional Appearance: thin Orientation/consciousness: patient oriented x3 (alert) Other: Grossly bloody emesis with clots HENMT: Head: normocephalic and atraumatic Ears: external ears normal General nose exam: No nasal discharge present and no epistaxis Face and sinus: face symmetric Mouth: Yes Abnormal oral and palatal mucosa present (Blood in the mouth) Eyes: Conjunctivae: conjunctivae normal Sclera: sclerae normal EOM: EOMs intact bilaterally Neck: Neck: supple and no JVD Chest: Chest palpation & inspection: deferred Resp: Effort & Inspection:
[2020-06-26] MEDS: MAGNESIUM SULF 2 GM/WATER 50ML 2 GM/50 ML BAG IVPB (15:17)
[2020-06-26 16:38] LABS: Hematocrit 29.6 % (37.0-47.0); Hemoglobin 9.3 g/dL (12.0-15.0)
[2020-06-26] MEDS: THIAMINE HCL 200 MG/2 ML VIAL 500 MG IV PUSH (16:46)
--- NOTE | 2020-06-26 17:00 | PM.IMHP ---
H&P: HPI History of Present Illness Date/Time: 06/26/20 17:00 Chief Complaint: Vomiting blood and dark stools. Narrative: This is a 54-year-old female with history of alcoholism, esophageal varices, and bulimia who presented to the emergency department earlier today from home with reports of vomiting blood and dark stools. The on Saturday she admits to bingeing and purging and at that time she saw small amount of blood in her emesis. Yesterday she developed generalized aching diffusely throughout her upper abdomen with bloating and this morning she awoke with severe nausea and had several episodes of hematemesis, reportedly dark red blood admixed with clots. Not long thereafter she had cramping in her lower abdomen and passed several large, soft black tarry and malodorous stools. She has since been started on a Protonix drip and has been admitted to the intensive care unit for closer monitoring. She has not had any further episodes of hematemesis but did have a couple of dark stool since arrival to the ER. She cut back on her drinking after her 1st episode of bleeding esophageal varices in July 2019 however has fallen back into the habit of drinking 3 to 6 [place] each night, more so on the weekends. At the time my evaluation she reports feeling much better with antiemetics and IV fluid rehydration. She does have mild tremors in her hands but no other signs of alcohol withdrawal. She has no history of alcohol withdrawal seizures and denies sweats and hallucinations. Review of Systems Review of Systems: Narrative: Twelve systems were reviewed with pertinent positives and negatives as per HPI. No fever, chills, or sweats. She denies chest pain shortness of breath. No recent cold or flu symptoms. She denies exposure to those positive for COVID-19. Except as documented, all other systems were reviewed and are negative. [facility] Past Medical History Medical History (Updated 06/26/20 @ 23:40 by Parisa Fung PA-C) Alcoholism Anxiety Asthma Chronic anemia Esophageal varices (~07/2019) Status post band ligation in July 2019. Nonbleeding varices on EGD in September 2019. Hiatal hernia Hypertension Peripheral neuropathy Restless leg syndrome Thrombocytopenia Upper gastrointestinal hemorrhage (~07/2019) Esophageal varices bleeding, status post band ligation. Surgical History Surgical History (Updated 06/26/20 @ 23:38 by Parisa Fung PA-C) History of endoscopy (~07/2019) Band ligation of esophageal varices. History of hand surgery ORIF left hand fracture with hardware. History of tonsillectomy Family History Family History Father Family history of cardiovascular disease Hypertension Cancer CHF (congestive heart failure) Mother Brain cancer Skin cancer Social History Social History (Updated 06/26/20 @ 23:39 by Parisa Fung PA-C) Social History: The patient is and lives with her in [place]. 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 She smoked for short period of time many years ago. Consumes about 6 alcoholic beverages a day, more on the weekends as detailed in HPI. No illicit substance use. She designates her Gulshan as her surrogate decision maker and wishes to be a full code. 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
--- NOTE | 2020-06-26 17:38 | ADMGEN ---
This patient, Na Brasher, was admitted to Intensive Care Unit-7. Patient/family oriented to hospital policies and general routines including ID bracelet, bed and alarms, visiting hours, pain management, procedures, bathroom and other care routines, personal items, smoking policy, room service/diet, and visiting hours. Information on how to activate the Rapid Response Team has been discussed. Patient/Family are encouraged to report perceived risks to care and to ask questions if they do not understand what they are told or what they should do.
[2020-06-26] MEDS: LACTATED RINGERS 1,000 ML 125 ML IV CONT (18:03)
[2020-06-26] MEDS: PANTOPRAZOLE SODIUM IV 40 MG VIAL IV PUSH (20:12)
[2020-06-26 20:49] LABS: Hematocrit 25.4 % (37.0-47.0); Hemoglobin 8.1 g/dL (12.0-15.0)
--- NOTE | 2020-06-26 21:02 | PC.NURSE ---
Patient did not have any bloody stools. HGB/HCT reported to Parisa CALVO. Will notify provider of any blood/dark tarry stools. Continue to monitor.
[2020-06-27] VITALS (26 sets, daily range): BP systolic 106–158; BP diastolic 39–101; PULSE 71–91; RESP 15–28; TEMP 36.4–37.4; O2SAT 94–100
[2020-06-27] MEDS: SODIUM CHLORIDE 0.9% IV 1,000 ML 50 ML IV CONT ×2 (00:13→23:17)
[2020-06-27] MEDS: LORazepam INJ (*CRX) 2 MG/ML VIAL 1 MG IV PUSH ×3 (00:19→07:55)
[2020-06-27] MEDS: PROPRANOLOL HCL 20 MG TABLET PO ×3 (00:19→19:53)
[2020-06-27 02:57] LABS: Basophils Absolute Auto 0.1 K/mm3 (0.0-0.1); Basophils Percent Auto 0.8 % (0.2-1.2); Eosinophils Absolute Auto 0.1 K/mm3 (0-0.3); Eosinophils Percent Auto 1.8 % (0-4.4); Hematocrit 23.5 % (37.0-47.0); Hemoglobin 7.3 g/dL (12.0-15.0); Immature Granulocyte Absolute 0.04 K/mm3 (0.00-0.031); Immature Granulocyte Percent A 0.5 % (0-0.5); Lymphocytes Absolute Auto 0.91 K/mm3 (0.9-3.2); Lymphocytes Percent Auto 11.4 % (18.3-44.2); Mean Corpuscular HGB Conc 31.1 g/dl (32-36); Mean Corpuscular Hemoglobin 28.6 pg (26-34); Mean Corpuscular Volume 92.2 fl (80-100); Mean Platelet Volume 11.2 fl (7.4-10.4); Monocytes Absolute Auto 1.1 K/mm3 (0.1-0.6); Monocytes Percent Auto 13.7 % (2.6-8.5); Neutrophils Absolute Auto 5.7 K/mm3 (1.3-6.7); Neutrophils Percent Auto 71.8 % (45.5-73.1); Platelet Count Result 91 k/mm3 (150-375); Red Blood Count 2.55 M/mm3 (4.2-5.4); Red Cell Distribution Width 17.8 % (11.5-14.5)
[2020-06-27 03:04] LABS: INR 1.4
[2020-06-27 03:05] LABS: Partial Thromboplastin Time 42.8 SECONDS (22.3-36.8)
[2020-06-27 03:06] LABS: Alanine Aminotransferase 17 U/L (4-35); Albumin Level 3.1 g/dL (3.5-5.1); Alkaline Phosphatase 111 U/L (38-126); Anion Gap 6 mmol/L (8-16); Aspartate Amino Transferase 61 U/L (14-36); Bilirubin,Total 2.4 mg/dL (0.2-1.3); Blood Urea Nitrogen 17 mg/dL (7-17); Calcium 8.1 mg/dL (8.4-10.2); Carbon Dioxide 25 mmol/L (22-30); Chloride 105 mmol/L (98-107); Estimated CRCL calculation 80 ml/min; Estimated Glomerular Filt Rate > 60; Glucose 121 mg/dL (65-105); Magnesium 1.3 mg/dL (1.6-2.3); Potassium 3.8 mmol/L (3.4-5.0); Sodium 136 mmol/L (137-145)
[2020-06-27 03:26] LABS: Iron 107 ug/dL (37-170)
[2020-06-27 03:36] LABS: Percent Iron Saturation 32 % (20-50)
[2020-06-27 03:59] LABS: Thyroid Stimulating Hormone Reflex 0.685 uIU/mL (0.465-4.68)
[2020-06-27 04:12] LABS: Folic Acid 17.8 ng/mL (2.76->20)
--- NOTE | 2020-06-27 06:49 | WPDGICN ---
Assessment and Plan Assessment and plan (1) GI bleed: Code(s): K92.2 - Gastrointestinal hemorrhage, unspecified Status: Acute Assessment and Plan: hemoglobin has dropped 2 g. She has had no further hematemesis. Octreotide has been started. (2) Esophageal varices: Onset Date: ~07/2019 Code(s): I85.00 - Esophageal varices without bleeding Status: Acute Assessment and Plan: She will be scheduled for EGD and probable esophageal variceal banding if needed. This has been discussed with the patient including the possible risks including the fact that in most cases there is substernal pain for up to 24 hours from banding (3) Elevated LFTs: Code(s): R79.89 - Other specified abnormal findings of blood chemistry Status: Acute Assessment and Plan: suspected cirrhosis due to chronic alcohol abuse. I will check to make certain that she has had hepatitis serology in the past. We discussed alcohol in the fact that it is important for her to stop completely GI Consult Note Consult date/time: 06/27/20 06:49 HPI: Na Brasher is a 54 year old female Who presented to the emergency room early yesterday with hematemesis. She states that the day before she had several black stools which she recognizes blood. She also has had some upper abdominal discomfort, a tight bloated feeling for the past few weeks. At times it is actually painful. This is not related to meals. Her appetite is good she has had no nausea or vomiting until yesterday her weight has been stable. She does have a history of having esophageal varices which were banded here 11 months ago. A follow-up EGD in last September revealed the minimal varices but a slight stricture which was dilated. She does continue to drink alcohol and has been diagnosed with cirrhosis. She cannot recall whether or not she had been tested for hepatitis but it she has no history of hepatitis or other liver disease. The record indicates that she is taking propanolol but she is not certain that she is. Her primary care physician apparently has retired Review of Systems Review of Systems: All systems reviewed & are unremarkable except as noted in HPI and below [facility] Past Medical History Medical History Alcoholism Anxiety Asthma Chronic anemia Esophageal varices (~07/2019) Status post band ligation in July 2019. Nonbleeding varices on EGD in September 2019. Hiatal hernia Hypertension Peripheral neuropathy Restless leg syndrome Thrombocytopenia Upper gastrointestinal hemorrhage (~07/2019) Esophageal varices bleeding, status post band ligation. Surgical History Surgical History History of endoscopy (~07/2019) Band ligation of esophageal varices. History of hand surgery ORIF left hand fracture with hardware. History of tonsillectomy Family History Family History Father Family history of cardiovascular disease Hypertension Cancer CHF (congestive heart failure) Mother Brain cancer Skin cancer Social History Social History Social History: The patient is and lives with her in [place]. 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 She smoked for short period of time many years ago. Consumes about 6 alcoholic beverages a day, more on the weekends as detailed in HPI. No illicit substance use. She designates her Gulshan as her surrogate decision maker and wishes to be a full code. Smoking packs per day: 0.25 Smoking cigarettes per day: 5.0 Years smoked: 7 Smoking pack-years: 1.75 Smoking status: Former smoker Tobacco type: cigarettes Smoking end date: 04/22/09 Alcohol intake: current Drinks per week: 42 Substance use: never Substance use type: does not use Additi
[2020-06-27] MEDS: THIAMINE HCL 200 MG/2 ML VIAL 100 MG IV PUSH (07:54)
[2020-06-27] MEDS: PANTOPRAZOLE SODIUM IV 40 MG VIAL IV PUSH ×2 (07:55→19:53)
[2020-06-27 08:43] LABS: Hematocrit 22.5 % (37.0-47.0)
[2020-06-27] MEDS: FOLIC ACID 1 MG/0.2 ML INJ IV PUSH (09:12)
[2020-06-27] MEDS: LACTATED RINGERS 1,000 ML 150 ML IV CONT (09:28)
--- NOTE | 2020-06-27 09:47 | WPDANESEPPF ---
Anes - Initial Pre Proc Eval Procedure: Operation Date: 06/27/20 10:30 Proposed Procedures p Esophagogastroduodenoscopy - Goyo Eller MD Date/Time: 06/27/20 09:47 Surgeon: Yanelis Cardoza MD Pre Op Diagnosis: upper gi bleed/varices/alcoholic liver disease Patient Data Age: 54 Gender: F Height: 5 ft 4 in Weight: 55.7 kg Last Vital Signs Temp 98.2 F 06/27/20 09:31 Pulse 75 06/27/20 09:31 Resp 15 06/27/20 09:31 BP 135/73 06/27/20 09:31 Pulse Ox 100 06/27/20 09:31 Allergies Allergy/AdvReac Type Severity Reaction Status Date / Time oats Allergy Hives Verified 06/27/20 09:29 codeine AdvReac Unknown Nausea and Verified 06/27/20 09:29 Vomiting Home Medications Medication Instructions Recorded Confirmed Type pantoprazole 40 mg tablet,delayed 40 mg PO Q12HR #180 tablet 08/14/19 06/27/20 Rx release propranolol 20 mg tablet 20 mg PO Q12HR #180 tablet 08/14/19 06/27/20 Rx folic acid 400 mcg tablet 0.4 mg PO DAILY #90 tablet 08/31/19 06/27/20 Rx albuterol sulfate 90 mcg/actuation 2 puff INHALATION Q4-6H PRN #18 gm 11/17/19 06/27/20 Rx aerosol inhaler lisinopril 10 1 tablet PO DAILY #90 tablet 01/26/20 06/27/20 Rx mg-hydrochlorothiazide 12.5 mg tablet Laboratory Tests 06/26/20 06/26/20 06/26/20 14:08 14:08 14:08 WBC 8.6 K/mm3 K/mm3 (4.5-10.0) RBC 3.27 M/mm3 L M/mm3 (4.2-5.4) Hgb 9.3 g/dL L g/dL (12.0-15.0) Hct 29.7 % L % (37.0-47.0) MCV 90.8 fl fl (80-100) MCH 28.4 pg pg (26-34) MCHC 31.3 g/dl L g/dl (32-36) RDW 17.9 % H % (11.5-14.5) Plt Count 143 k/mm3 L k/mm3 (150-375) MPV 11.0 fl H fl (7.4-10.4) Immature Gran % (Auto) 0.7 % H % (0-0.5) Neut % (Auto) 74.9 % H % (45.5-73.1) Lymph % (Auto) 9.7 % L % (18.3-44.2) Rolette % (Auto) 12.0 % H % (2.6-8.5) Eos % (Auto) 1.2 % % (0-4.4) Baso % (Auto) 1.5 % H % (0.2-1.2) Lymph # (Auto) 0.83 K/mm3 L K/mm3 (0.9-3.2) Rolette # (Auto) 1.0 K/mm3 H K/mm3 (0.1-0.6) Eos # (Auto) 0.1 K/mm3 K/mm3 (0-0.3) Baso # (Auto) 0.1 K/mm3 K/mm3 (0.0-0.1) Abs Immat Gran (auto) 0.06 K/mm3 H K/mm3 (0.00-0.031) Absolute Neuts (auto) 6.4 K/mm3 K/mm3 (1.3-6.7) Absolute Nucleated RBC 0.0 K/mm3 K/mm3 (0.0-0.012) Nucleated RBC % 0.0 % % (0.0-0.2) % Immature Plt Fraction 8.2 % % (0.9-11.2) PT 16.5 Seconds H Seconds (11.1-14.7) INR 1.3 APTT 40.5 SECONDS H SECONDS (22.3-36.8) Sodium 139 mmol/L mmol/L (137-145) Potassium 3.9 mmol/L mmol/L (3.4-5.0) Chloride 105 mmol/L mmol/L (98-107) Carbon Dioxide 24 mmol/L mmol/L (22-30) Anion Gap 10 mmol/L mmol/L (8-16) BUN 14 mg/dL mg/dL (7-17) Creatinine 0.40 mg/dL L mg/dL (0.7-1.0) Estim Creat Clear Calc 115 ml/min ml/min Estimated GFR > 60 (59 - ) Glucose 112 mg/dL H mg/dL (65-105) Calcium 9.2 mg/dL mg/dL (8.4-10.2) Phosphorus Magnesium Iron TIBC % Saturation Ferritin Total Bilirubin 2.9 mg/dL H mg/dL (0.2-1.3) AST 95 U/L H U/L (14-36) ALT 24 U/L U/L (4-35) Alkaline Phosphatase 173 U/L H U/L (38-126) Total Protein 9.0 g/dL H g/dL (6.3-8.2) Albumin 4.0 g/dL g/dL (3.5-5.1) Lipase Vitamin B12 Folate TSH (Reflex) Blood Type Antibody Screen Crossmatch 06/26/20 06/26/20 06/26/20 14:08 14:08 14:08 WBC RBC Hgb Hct MCV MCH MCHC RDW Plt C
--- NOTE | 2020-06-27 09:54 | WPDCNINT ---
Assessment and Plan Assessment and plan (1) GI bleed: Code(s): K92.2 - Gastrointestinal hemorrhage, unspecified Status: Acute Assessment and Plan: Patient presented with hematemesis and melena -EGD on 06/27/2020 showed medium grade 3 varices: Large varices almost occluding the esophageal lumen present in the distal esophagus with stigmata of recent bleeding noted. - Status post and ligation of the esophageal varices -continue PPI, with aspirin in since avoid alcohol -follow-up EGD in 3 months (2) Esophageal varices: Onset Date: ~07/2019 Code(s): I85.00 - Esophageal varices without bleeding Status: Acute Assessment and Plan: As above (3) Anemia: Code(s): D64.9 - Anemia, unspecified Status: Acute Assessment and Plan: Anemia likely secondary hematemesis and GI bleed -hemoglobin dropped from 9.3 on admission to 7.0 this morning -1 unit of packed RBCs has been ordered. (4) Bulimia: Code(s): F50.2 - Bulimia nervosa Status: Acute (5) Alcoholism: Code(s): F10.20 - Alcohol dependence, uncomplicated Status: Acute Assessment and Plan: Continue CIWA protocol with IV Ativan -patient drinks 3-6 alcoholic drinks per day more on the weekends. She does have a history of alcohol withdrawal and esophageal varices with banding in July 23, 2019 -counseled patient on quitting alcohol drinks, I did tell her that the esophageal varices at secondary to alcohol, thrombocytopenia and elevated liver enzymes. I did also explain to her that excessive drinking will probably cause cirrhosis and liver failure at some point. Patient did comprehend. (6) DVT prophylaxis: Code(s): Z29.9 - Encounter for prophylactic measures, unspecified Status: Acute Assessment and Plan: SCDs Additional Plan Discussed with patient at length and updated her with her condition and plan of care. Code status: Full code Critical care time spent: 47 minutes This dictation may have been done utilizing a voice recognition system. Attempts have been made to correct errors. However, there may be uncorrected grammatical, spelling, and recognition errors present. Due to a high probability of clinically significant, life threatening deterioration, the patient required my highest level of preparedness to intervene emergently and I personally spent this critical care time directly and personally managing the patient. This critical care time included obtaining a history; examining the patient; pulse oximetry; ordering and review of studies; arranging urgent treatment with development of a management plan; evaluation of patient's response to treatment; frequent reassessment; and discussions with other providers. It was exclusive of separately billable procedures and treating other patients and teaching time. Please see Assessment and Plan section and the rest of the note for further information on patient assessment and treatment [facility] [employer] Consult Note Consult date: 06/27/20 Time Seen: 07:06 Reason for consult: Hematemesis, melena, anemia HPI: Na Brasher is a 54 year old female with significant past medical history of alcoholism, esophageal varices status post banding in November 2019, history of bulimia presented the ED on 06/26/2020 with complains of hematemesis and melena. She does admit to binge drink and purge at the same time she saw blood in her emesis. She developed generalized aching diffuse upper abdominal discomfort with bloating and woke up with severe nausea vomiting on the day of admission. Her emesis contained dark red blood with clots. In the ED she was started on Protonix infusion and octreotide infusion. Patient's initial hemoglobin was 9.3 on admission, repeat was 8.1 and this morning is 7.3. GI has already evaluated the patient and patient will be getting an endoscopy today. Patient seen and examined this morning, is awake, alert, oriented, nonfocal. Patient
--- NOTE | 2020-06-27 10:11 | PM.IMPN ---
Progress Note: A&P Assessment and Plan (1) GI bleed: Code(s): K92.2 - Gastrointestinal hemorrhage, unspecified Status: Acute Assessment and Plan: Patient present to ED with complaints of vomiting blood and dark stools. She was recently binging/purging and noted hematemesis. She then developed abdominal bloating with several episodes of hematemesis that was dark red blood with clots and then later having soft, black and tarry stools. EGD showing medium grade III esophageal varices in the distal esophagus with stigmata of recent bleeding. These were banded. Also noted was diffuse alcoholic gastritis. Continue to monitor HH or other evidence of re-bleeding. (2) Chronic anemia: Code(s): D64.9 - Anemia, unspecified Status: Acute Assessment and Plan: Acute on chronic. Unclear on baseline Hgb. Hgb 9.3 on admission but has dropped to 7.0 this morning related to the GI bleed. Transfusion ordered. (3) Thrombocytopenia: Code(s): D69.6 - Thrombocytopenia, unspecified Status: Acute Assessment and Plan: Plt count 143 but has dropped to 91K this morning related to probable underlying liver disease and consumption. Continue to follow. (4) Elevated LFTs: Code(s): R79.89 - Other specified abnormal findings of blood chemistry Status: Acute Assessment and Plan: AST slightly elevated at 95 with TB 2.9 on admission felt related to alcohol use. Levels better today. Should improve as she abstains from alcohol. (5) Alcoholism: Code(s): F10.20 - Alcohol dependence, uncomplicated Status: Acute Assessment and Plan: She drinks 3-6 alcoholic drinks per day with more on the weekends. Hx of alcohol w/d and esophageal varices in July 2019. Continue Thiamine and Folate. Ativan available as needed and she has received 3 doses thus far. Librium has been scheduled. (6) Anxiety: Code(s): F41.9 - Anxiety disorder, unspecified Status: Acute Assessment and Plan: Mood stable. Ativan available as needed as she has required 3 doses thus far. (7) Hypertension: Code(s): I10 - Essential (primary) hypertension Status: Acute Assessment and Plan: Patient's blood pressure was reviewed on 06/27 Blood pressure remains well controlled. Will continue current medications. (8) Bulimia: Code(s): F50.2 - Bulimia nervosa Status: Acute Assessment and Plan: Patient will need to follow up with mental health provider. Monitor intake. (9) DVT prophylaxis: Code(s): Z29.9 - Encounter for prophylactic measures, unspecified Status: Acute Assessment and Plan: SCDs Subjective Date/time seen: 06/27/20 10:11 Interval history: Date of service 06/27 54yo female with hx of alcoholism, esophageal varices and bulemia here for GI bleed. Patient back from EGD. She tolerated the procedure well. Has eaten since the procedure and tolerating it without n/v. Not eating much. Slept poorly last night due to RLS. No further episodes of hemaetesis. Did have 2 dark black stools today. no abd pain. No CP. Exam Narrative: Exam Narrative: AF 97.8 131/77 71 16 98% ra Gen - NARD lying almost flat in bed Chest - CTA bilaterally, nml RR CV - RRR S1/S2; Tele showing no significant dysrhythmias Abd - Soft, NT/ND, Positive BS Ext - No pedal edema Neuro - Alert and oriented. Nonfocal exam. Psych - Nml mood and affect Skin - Warm and dry Objective Data Vital Signs Vital Signs: Vital Signs - 24 hr 06/26/20 13:59 06/26/20 14:48 06/26/20 15:09 Temperature 98.2 F Pulse Rate 89 74 76 Pulse Rate [Bilateral Pedal (Dorsalis Pedis) Palpation] Respiratory Rate 16 20 Blood Pressure 160/98 H 147/83 H Pulse Oximetry 100 98 06/26/20 15:30 06/26/20 16:35 06/26/20 17:15 Temperature Pulse Rate 78 76 79 Pulse Rate [Bilateral Pedal (Dorsalis Pedis) Palpati
[2020-06-27] MEDS: BENZOCAINE (*SP) 60 ML SPRAY CAN (HURRICAINE) 1 SPRAY MUCOUS MEM (10:27)
[2020-06-27] MEDS: chlordiazePOXIDE (*CRX) 25 MG CAPSULE 50 MG PO ×3 (12:10→23:17)
[2020-06-27 13:19] LABS: Hepatitis B Surface Antigen Negative (Negative)
[2020-06-27 13:24] LABS: HAV RESULT Negative (Negative); Hepatitis B Core IgM Result Negative (Negative)
[2020-06-27 13:36] LABS: Hepatitis C Virus Antibody Negative (Negative)
[2020-06-27 15:20] LABS: Hematocrit 26.2 % (37.0-47.0); Hemoglobin 8.4 g/dL (12.0-15.0)
[2020-06-27] MEDS: ACETAMINOPHEN 325 MG TABLET 650 MG PO (18:17)
[2020-06-27] MEDS: ONDANSETRON INJ 4 MG/2 ML VIAL IV PUSH (18:17)
[2020-06-27 18:50] LABS: Hematocrit 26.7 % (37.0-47.0); Hemoglobin 8.5 g/dL (12.0-15.0)
[2020-06-28] VITALS (15 sets, daily range): BP systolic 113–149; BP diastolic 66–88; PULSE 61–73; RESP 16–21; TEMP 36.7–37.1; O2SAT 96–100
[2020-06-28 01:29] LABS: Hematocrit 26.7 % (37.0-47.0); Hemoglobin 8.5 g/dL (12.0-15.0)
[2020-06-28 04:36] LABS: Basophils Absolute Auto 0.1 K/mm3 (0.0-0.1); Basophils Percent Auto 0.9 % (0.2-1.2); Eosinophils Absolute Auto 0.3 K/mm3 (0-0.3); Eosinophils Percent Auto 3.4 % (0-4.4); Hematocrit 27.5 % (37.0-47.0); Hemoglobin 8.7 g/dL (12.0-15.0); Immature Granulocyte Absolute 0.03 K/mm3 (0.00-0.031); Immature Granulocyte Percent A 0.4 % (0-0.5); Immature Platelet Fraction Pct 7.5 % (0.9-11.2); Lymphocytes Absolute Auto 1.01 K/mm3 (0.9-3.2); Lymphocytes Percent Auto 13.3 % (18.3-44.2); Mean Corpuscular HGB Conc 31.6 g/dl (32-36); Mean Corpuscular Hemoglobin 28.7 pg (26-34); Mean Corpuscular Volume 90.8 fl (80-100); Mean Platelet Volume 11.1 fl (7.4-10.4); Monocytes Percent Auto 12.8 % (2.6-8.5); Neutrophils Absolute Auto 5.2 K/mm3 (1.3-6.7); Neutrophils Percent Auto 69.2 % (45.5-73.1); Platelet Count Result 98 k/mm3 (150-375); Red Blood Count 3.03 M/mm3 (4.2-5.4); White Blood Count 7.6 K/mm3 (4.5-10.0)
[2020-06-28 04:47] LABS: Alanine Aminotransferase 19 U/L (4-35); Alkaline Phosphatase 107 U/L (38-126); Anion Gap 3 mmol/L (8-16); Aspartate Amino Transferase 99 U/L (14-36); Blood Urea Nitrogen 13 mg/dL (7-17); Calcium 7.9 mg/dL (8.4-10.2); Carbon Dioxide 29 mmol/L (22-30); Chloride 107 mmol/L (98-107); Estimated CRCL calculation 80 ml/min; Estimated Glomerular Filt Rate > 60; Glucose 97 mg/dL (65-105); Magnesium 1.4 mg/dL (1.6-2.3); Phosphorus 3.2 mg/dL (2.5-4.5); Potassium 3.8 mmol/L (3.4-5.0); Sodium 139 mmol/L (137-145)
[2020-06-28 04:51] LABS: INR 1.5; Prothrombin Time 18.3 Seconds (11.1-14.7)
[2020-06-28] MEDS: chlordiazePOXIDE (*CRX) 25 MG CAPSULE 50 MG PO (05:02)
--- NOTE | 2020-06-28 07:17 | WPDGIPROGNO ---
Progress Note: A&P Assessment and Plan (1) GI bleed: Code(s): K92.2 - Gastrointestinal hemorrhage, unspecified Status: Acute Assessment and Plan: No further bleeding since banding of varices. Explained the patient that she must avoid inducing vomiting which she does because of her bulimia. (2) Alcoholic: Code(s): F10.20 - Alcohol dependence, uncomplicated Status: Acute Assessment and Plan: I reminded her again that she needs to abstain from alcohol completely to halt the progression of her liver disease. Explained that the elevation of her prothrombin time indicates liver damage. There is likelihood of at least some improvement if she can stop drinking alcohol (3) Elevated LFTs: Code(s): R79.89 - Other specified abnormal findings of blood chemistry Status: Acute Assessment and Plan: transaminases and bilirubin are stable which is good. (4) Alcohol withdrawal: Qualifiers: Complication of substance-induced condition: uncomplicated Qualified Code(s): F10.230 - Alcohol dependence with withdrawal, uncomplicated Code(s): F10.239 - Alcohol dependence with withdrawal, unspecified Status: Acute Additional Plan she is going to try to discontinue alcohol altogether. At this point I do not see any sign of alcohol withdrawal syndrome and I think that the risk has passed. Consequently from my perspective would be okay for her to be discharged Time Spent With Patient Time with patient: 25 - 35 minutes Subjective Date/time seen: 06/28/20 07:17 No further bleeding noted. She had a good night. The discomfort she had after her procedure yesterday has subsided. Exam Resp: Effort & Inspection: normal respiratory effort Cardio: Rate: regular rate Rhythm: regular rhythm GI: Inspection: normal to inspection GI Palp: Yes Soft to palpation and No Tenderness to palpation present (GI) Percussion: Yes normal to percussion Auscultation: normal bowel sounds Neuro: General: oriented to person, oriented to place and oriented to time Motor exam (neuro): No asterixis Extrem: General: no pedal edema Objective Data Vital Signs Vital Signs: Vital Signs - 24 hr 06/27/20 07:55 06/27/20 08:00 06/27/20 09:06 Temperature 36.8 C 36.7 C Pulse Rate 81 80 76 Pulse Rate [Bilateral Pedal (Dorsalis Pedis) Palpation] 75 Respiratory Rate 15 16 Blood Pressure 125/77 122/75 Pulse Oximetry 97 97 06/27/20 09:12 06/27/20 09:31 06/27/20 09:57 Temperature 36.8 C 36.8 C 36.6 C Pulse Rate 75 75 71 Pulse Rate [Bilateral Pedal (Dorsalis Pedis) Palpation] Respiratory Rate 15 15 16 Blood Pressure 135/73 135/73 131/77 Pulse Oximetry 100 100 98 06/27/20 10:08 06/27/20 10:41 06/27/20 10:51 Temperature 36.6 C Pulse Rate 75 75 82 Pulse Rate [Bilateral Pedal (Dorsalis Pedis) Palpation] Respiratory Rate 23 H 23 H 28 H Blood Pressure 116/72 116/72 116/72 Pulse Oximetry 95 95 98 06/27/20 11:01 06/27/20 11:08 06/27/20 12:00 Temperature 36.4 C L 36.7 C Pulse Rate 82 75 74 Pulse Rate [Bilateral Pedal (Dorsalis Pedis) Palpation] 74 Respiratory Rate 22 H 24 H 18 Blood Pressure 121/67 118/67 158/101 H Pulse Oximetry 94 96 100 06/27/20 14:00 06/27/20 16:00 06/27/20 18:00 Temperature 36.7 C Pulse Rate 77 77 72 Pulse Rate [Bilateral Pedal (Dorsalis Pedis) Palpation] 77 Respiratory Rate 18 16 Blood Pressure 142/90 H 120/39 L Pulse Oximetry 99 99 06/27/20 19:53 06/27/20 20:00 06/27/20 22:00 Temperature 36.7 C Pulse Rate 73 73 74 Pulse Rate [Bilateral Pedal (Dorsalis Pedis) Palpation] 73 Respiratory Rate 19 18 Blood Pressure 140/83 118/77 Pulse Oximetry 97 06/27/20 23:23 06/27/20 23:24 06/28/20 00:00 Temperature 36.8 C Pulse Rate 76 65 Pulse Rate [Bilateral Pedal (Dorsalis Pedis) Palpation] 77 Respiratory Rate 20 20 Blood Pressure 128/66 Pulse Oximetry 98 98 06/28/20 02:00 06/28/20 03:22 06/28/20 03:23 Te
[2020-06-28] MEDS: MAGNESIUM SULFATE 3GM/D5W100ML 3 GM/100 ML BAG IVPB (07:43)
[2020-06-28] MEDS: PROPRANOLOL HCL 20 MG TABLET PO ×2 (08:05→20:36)
[2020-06-28] MEDS: THIAMINE HCL 200 MG/2 ML VIAL 100 MG IV PUSH (08:05)
[2020-06-28] MEDS: PANTOPRAZOLE SODIUM IV 40 MG VIAL IV PUSH ×2 (08:05→20:36)
[2020-06-28] MEDS: FOLIC ACID 1 MG/0.2 ML INJ IV PUSH (08:10)
--- NOTE | 2020-06-28 08:22 | WPDINTPN ---
Progress Note: A&P Assessment and Plan (1) GI bleed: Qualifiers: GI bleed type/associated pathology: gastrointestinal hemorrhage with hematemesis Qualified Code(s): K92.0 - Hematemesis Code(s): K92.2 - Gastrointestinal hemorrhage, unspecified Status: Acute Assessment and Plan: Patient presented with hematemesis and melena -EGD on 06/27/2020 showed medium grade 3 varices: Large varices almost occluding the esophageal lumen present in the distal esophagus with stigmata of recent bleeding noted. - Status post and bands x2 of the esophageal varices -continue PPI, -avoid aspirin and NSAIDs -follow-up EGD in 3 months -patient has been increased to full liquid diet by GI (2) Esophageal varices: Onset Date: ~07/2019 Qualifiers: Esophageal varices bleeding: with bleeding Esophageal varices type: unspecified type Qualified Code(s): I85.01 - Esophageal varices with bleeding Code(s): I85.00 - Esophageal varices without bleeding Status: Acute Assessment and Plan: As above (3) Anemia: Qualifiers: Other causes of anemia: acute posthemorrhagic Anemia type: other cause Qualified Code(s): D62 - Acute posthemorrhagic anemia Code(s): D64.9 - Anemia, unspecified Status: Acute Assessment and Plan: Anemia likely secondary hematemesis and GI bleed -hemoglobin dropped from 9.3 on admission to 7.0 this morning -1 unit of packed RBCs has been ordered. (4) Bulimia: Code(s): F50.2 - Bulimia nervosa Status: Acute (5) Alcoholism: Code(s): F10.20 - Alcohol dependence, uncomplicated Status: Acute Assessment and Plan: Continue CIWA protocol with IV Ativan -patient drinks 3-6 alcoholic drinks per day more on the weekends. She does have a history of alcohol withdrawal and esophageal varices with banding in July 23, 2019 -counseled patient on quitting alcohol drinks, I did tell her that the esophageal varices at secondary to alcohol, thrombocytopenia and elevated liver enzymes. I did also explain to her that excessive drinking will probably cause cirrhosis and liver failure at some point. Patient did comprehend. -will have care coordination provided her with resources (6) DVT prophylaxis: Code(s): Z29.9 - Encounter for prophylactic measures, unspecified Status: Acute Assessment and Plan: SCDs Additional Plan Discussed with patient at length and updated her with her condition and plan of care. Code status: Full code Critical care time spent: 32 minutes This dictation may have been done utilizing a voice recognition system. Attempts have been made to correct errors. However, there may be uncorrected grammatical, spelling, and recognition errors present. Due to a high probability of clinically significant, life threatening deterioration, the patient required my highest level of preparedness to intervene emergently and I personally spent this critical care time directly and personally managing the patient. This critical care time included obtaining a history; examining the patient; pulse oximetry; ordering and review of studies; arranging urgent treatment with development of a management plan; evaluation of patient's response to treatment; frequent reassessment; and discussions with other providers. It was exclusive of separately billable procedures and treating other patients and teaching time. Please see Assessment and Plan section and the rest of the note for further information on patient assessment and treatment Subjective Date/time seen: 06/28/20 08:22 Interval history: Reason for consult: 54yo female with hx of alcoholism, esophageal varices and bulemia here for GI bleed. Anemia 06/28/2020: Patient seen and examined this morning, is awake, alert, oriented x3. Patient is a not had any hematemesis or melena since her EGD. Hemoglobin has been stable and improving. Did receive 1 unit of packed RBCs
--- NOTE | 2020-06-28 11:10 | PM.IMPN ---
Progress Note: A&P Assessment and Plan (1) GI bleed: Qualifiers: GI bleed type/associated pathology: gastrointestinal hemorrhage with hematemesis Qualified Code(s): K92.0 - Hematemesis Code(s): K92.2 - Gastrointestinal hemorrhage, unspecified Status: Acute Assessment and Plan: Patient present to ED with complaints of vomiting blood and dark stools. She was recently binging/purging and noted hematemesis. She then developed abdominal bloating with several episodes of hematemesis that was dark red blood with clots and then later having soft, black and tarry stools. She was started on octreotide. EGD 06/27/20 showing medium grade III esophageal varices in the distal esophagus with stigmata of recent bleeding. These were banded. Also noted was diffuse alcoholic gastritis. Appreciate GI input. Octreotide has been stopped. Continue to monitor HH or other evidence of re-bleeding. Abx started for unclear reasons. No CXR. No cultures drawn or UA. No fevers. No evidence of infection. Stop abx. (2) Esophageal varices: Onset Date: ~07/2019 Qualifiers: Esophageal varices bleeding: with bleeding Esophageal varices type: unspecified type Qualified Code(s): I85.01 - Esophageal varices with bleeding Code(s): I85.00 - Esophageal varices without bleeding Status: Acute Assessment and Plan: Patietn with hx of EV with hx of bleeding s/p banding. She has had recurrence and banding again yesterday. Continue propranolol. (3) Chronic anemia: Code(s): D64.9 - Anemia, unspecified Status: Acute Assessment and Plan: Acute on chronic. Unclear on baseline Hgb. Hgb 9.3 on admission but has dropped to 7.0 on 06/27/20 related to the GI bleed. Transfusion ordered of 1U PRBC. Repeat Hgb climbed to 8.4 and has remained stable since. Follow for stability. (4) Thrombocytopenia: Code(s): D69.6 - Thrombocytopenia, unspecified Status: Acute Assessment and Plan: Plt count 143 but has dropped to 91K yesterday morning related to probable underlying liver disease/ Plt count slightly better today. Continue to follow. (5) Elevated LFTs: Code(s): R79.89 - Other specified abnormal findings of blood chemistry Status: Acute Assessment and Plan: AST slightly elevated at 95 with TB 2.9 on admission felt related to alcohol use. AST back up but probably chronic. Hepatitis panel negative. Bili continues to improve. [place] related to alcoholism. Monitor periodically. Check RUQ US. (6) Alcoholism: Code(s): F10.20 - Alcohol dependence, uncomplicated Status: Acute Assessment and Plan: She drinks 3-6 alcoholic drinks per day with more on the weekends. Hx of alcohol w/d and esophageal varices in July 2019. Continue Thiamine and Folate. Ativan available as needed and she has received 3 doses thus far. Librium has been scheduled. No evidence of withdrawal. Will decreased librium today (7) Anxiety: Code(s): F41.9 - Anxiety disorder, unspecified Status: Acute Assessment and Plan: Mood stable. Ativan available as needed as she has required 3 doses thus far. Librium scheduled started (8) Hypertension: Code(s): I10 - Essential (primary) hypertension Status: Acute Assessment and Plan: Patient's blood pressure was reviewed on 06/28 Blood pressure remains well controlled. Will continue current medications with propranolol. Lisinopril/HCTZ on hold. (9) Bulimia: Code(s): F50.2 - Bulimia nervosa Status: Acute Assessment and Plan: Patient will need to follow up with mental health provider. SW to provide info about mental health providers. Monitor intake. (10) DVT prophylaxis: Code(s): Z29.9 - Encounter for prophylactic measures, unspecified Status: Acute Assessment and Plan: SCDs Subjective Date/time seen
[2020-06-28 12:16] LABS: Hematocrit 29.1 % (37.0-47.0); Hemoglobin 9.3 g/dL (12.0-15.0)
[2020-06-28] MEDS: chlordiazePOXIDE (*CRX) 25 MG CAPSULE PO ×3 (12:18→23:41)
[2020-06-28 12:43] LABS: Beta HCG Quantitative < 2.39 mIU/ML
--- NOTE | 2020-06-28 15:01 | PC.NURSE ---
This patient, Na Brasher, was transferred to [[id number] ] on 06/28/20 at 1501. Personal belongings sent with patient. Report given to [YESSICA Stover @ [phone] ]. Appropriate documentation sent with patient.
--- NOTE | 2020-06-28 15:13 | PC.NURSE ---
This patient, Na Brasher, was received from ICU 7 on 06/28/20 at 1514. Patient/family oriented to unit policies and routines
[2020-06-28 17:36] LABS: Hematocrit 28.1 % (37.0-47.0); Hemoglobin 9.1 g/dL (12.0-15.0)
[2020-06-28 21:35] LABS: Hematocrit 26.6 % (37.0-47.0); Hemoglobin 8.4 g/dL (12.0-15.0)
[2020-06-29] VITALS (8 sets, daily range): BP systolic 110–147; BP diastolic 60–88; PULSE 66–78; RESP 17–22; TEMP 36.7–37.1; O2SAT 93–100
[2020-06-29 00:42] LABS: Hemoglobin 8.3 g/dL (12.0-15.0)
[2020-06-29] MEDS: chlordiazePOXIDE (*CRX) 25 MG CAPSULE PO ×4 (05:16→23:47)
[2020-06-29 05:47] LABS: Hematocrit 27.6 % (37.0-47.0); Hemoglobin 8.8 g/dL (12.0-15.0); Immature Platelet Fraction Pct 8.2 % (0.9-11.2); Mean Corpuscular HGB Conc 31.9 g/dl (32-36); Mean Corpuscular Hemoglobin 29.4 pg (26-34); Mean Corpuscular Volume 92.3 fl (80-100); Mean Platelet Volume 11.3 fl (7.4-10.4); Platelet Count Result 98 k/mm3 (150-375); Red Blood Count 2.99 M/mm3 (4.2-5.4); Red Cell Distribution Width 18.9 % (11.5-14.5); White Blood Count 6.8 K/mm3 (4.5-10.0)
[2020-06-29 05:57] LABS: Alanine Aminotransferase 19 U/L (4-35); Alkaline Phosphatase 112 U/L (38-126); Anion Gap 6 mmol/L (8-16); Aspartate Amino Transferase 87 U/L (14-36); Bilirubin,Total 2.1 mg/dL (0.2-1.3); Blood Urea Nitrogen 9 mg/dL (7-17); Calcium 7.9 mg/dL (8.4-10.2); Carbon Dioxide 26 mmol/L (22-30); Chloride 107 mmol/L (98-107); Estimated CRCL calculation 80 ml/min; Estimated Glomerular Filt Rate > 60; Glucose 84 mg/dL (65-105); Potassium 3.7 mmol/L (3.4-5.0); Sodium 139 mmol/L (137-145)
[2020-06-29] MEDS: LACTATED RINGERS 1,000 ML 150 ML IV CONT (09:21)
--- NOTE | 2020-06-29 09:35 | WPDANESEPPF ---
Anes - Initial Pre Proc Eval Procedure: Operation Date: 06/27/20 10:30 Proposed Procedures p Esophagogastroduodenoscopy - Goyo Eller MD Operation Date: 06/29/20 10:00 Proposed Procedures p Esophagogastroduodenoscopy - Goyo Eller MD Date/Time: 06/29/20 09:35 Surgeon: Chemo Hillman MD Pre Op Diagnosis: upper gi bleed/varices/alcoholic liver disease Patient Data Age: 54 Gender: F Height: 5 ft 4 in Weight: 56 kg Last Vital Signs Temp 98.1 F 06/29/20 09:14 Pulse 66 06/29/20 09:14 Resp 18 06/29/20 09:14 BP 147/79 H 06/29/20 09:14 Pulse Ox 100 06/29/20 09:14 Allergies Allergy/AdvReac Type Severity Reaction Status Date / Time oats Allergy Hives Verified 06/29/20 09:10 codeine AdvReac Unknown Nausea and Verified 06/29/20 09:10 Vomiting Home Medications Medication Instructions Recorded Confirmed Type pantoprazole 40 mg tablet,delayed 40 mg PO Q12HR #180 tablet 08/14/19 06/27/20 Rx release propranolol 20 mg tablet 20 mg PO Q12HR #180 tablet 08/14/19 06/27/20 Rx folic acid 400 mcg tablet 0.4 mg PO DAILY #90 tablet 08/31/19 06/27/20 Rx albuterol sulfate 90 mcg/actuation 2 puff INHALATION Q4-6H PRN #18 gm 11/17/19 06/27/20 Rx aerosol inhaler lisinopril 10 1 tablet PO DAILY #90 tablet 01/26/20 06/27/20 Rx mg-hydrochlorothiazide 12.5 mg tablet Laboratory Tests 06/28/20 06/28/20 06/28/20 12:06 12:06 17:28 WBC RBC Hgb 9.3 g/dL L g/dL 9.1 g/dL L g/dL (12.0-15.0) (12.0-15.0) Hct 29.1 % L % 28.1 % L % (37.0-47.0) (37.0-47.0) MCV MCH MCHC RDW Plt Count MPV % Immature Plt Fraction Sodium Potassium Chloride Carbon Dioxide Anion Gap BUN Creatinine Estim Creat Clear Calc Estimated GFR Glucose Calcium Total Bilirubin AST ALT Alkaline Phosphatase Total Protein Albumin Beta HCG, Quant < 2.39 mIU/ML mIU/ML 06/28/20 06/29/20 06/29/20 21:25 00:32 05:07 WBC 6.8 K/mm3 K/mm3 (4.5-10.0) RBC 2.99 M/mm3 L M/mm3 (4.2-5.4) Hgb 8.4 g/dL L g/dL 8.3 g/dL L g/dL 8.8 g/dL L g/dL (12.0-15.0) (12.0-15.0) (12.0-15.0) Hct 26.6 % L % 26.0 % L % 27.6 % L % (37.0-47.0) (37.0-47.0) (37.0-47.0) MCV 92.3 fl fl (80-100) MCH 29.4 pg pg (26-34) MCHC 31.9 g/dl L g/dl (32-36) RDW 18.9 % H % (11.5-14.5) Plt Count 98 k/mm3 L k/mm3 (150-375) MPV 11.3 fl H fl (7.4-10.4) % Immature Plt Fraction 8.2 % % (0.9-11.2) Sodium Potassium Chloride Carbon Dioxide Anion Gap BUN Creatinine Estim Creat Clear Calc Estimated GFR Glucose Calcium Total Bilirubin AST ALT Alkaline Phosphatase Total Protein Albumin Beta HCG, Quant 06/29/20 05:07 WBC RBC Hgb Hct MCV MCH MCHC RDW Plt Count MPV % Immature Plt Fraction Sodium 139 mmol/L mmol/L (137-145) Potassium 3.7 mmol/L mmol/L (3.4-5.0) Chloride 107 mmol/L mmol/L (98-107) Carbon Dioxide 26 mmol/L mmol/L (22-30) Anion Gap 6 mmol/L L mmol/L (8-16) BUN 9 mg/dL mg/dL (7-17) Creatinine 0.60 mg/dL L mg/dL (0.7-1.0) Estim Creat Clear Calc 80 ml/min ml/min Estimated GFR > 60 (59 - ) Glucose 84 mg/dL mg/dL (65-105) Calcium 7.9 mg/dL L mg/dL (8.4-10.2) Total Bilirubin 2.1 mg/dL H mg/dL (0.2-1.3) AST 87 U/L H U/L (14-3
--- NOTE | 2020-06-29 09:50 | P.PNIM_ITS ---
Progress Note: A&P Assessment and Plan (1) GI bleed: Qualifiers: GI bleed type/associated pathology: gastrointestinal hemorrhage with hematemesis Qualified Code(s): K92.0 - Hematemesis Code(s): K92.2 - Gastrointestinal hemorrhage, unspecified Status: Acute Assessment and Plan: Patient present to ED with complaints of vomiting blood and dark stools. She was recently binging/purging and noted hematemesis. She then developed abdominal bloating with several episodes of hematemesis that was dark red blood with clots and then later having soft, black and tarry stools. She was started on octreotide. EGD 06/27/20 showing medium grade III esophageal varices in the distal esophagus with stigmata of recent bleeding. These were banded. Also noted was diffuse alcoholic gastritis. Appreciate GI input. Octreotide has been stopped. Continue to monitor HH or other evidence of re-bleeding. Abx started for upper GI bleed, now stopped. s/p repeat EGD 06/29: small grade I varices distal esophagus, banded varices visible, moderate diffuse alcoholic gastritis in body of stomach. continue PPI. dsicussed avoid alcohol and binging/purging (2) Esophageal varices: Onset Date: ~07/2019 Qualifiers: Esophageal varices bleeding: with bleeding Esophageal varices type: unspecified type Qualified Code(s): I85.01 - Esophageal varices with bleeding Code(s): I85.00 - Esophageal varices without bleeding Status: Acute Assessment and Plan: Patietn with hx of EV with hx of bleeding s/p banding. She has had recurrence and banding aagain Continue propranolol. (3) Chronic anemia: Code(s): D64.9 - Anemia, unspecified Status: Acute Assessment and Plan: Acute on chronic. Unclear on baseline Hgb. Hgb 9.3 on admission but has dropped to 7.0 on 06/27/20 related to the GI bleed. Transfusion ordered of 1U PRBC. Repeat Hgb climbed to 8.4 and has remained stable since. Follow for stability. (4) Thrombocytopenia: Code(s): D69.6 - Thrombocytopenia, unspecified Status: Acute Assessment and Plan: Plt count 143 but has dropped to 91K yesterday morning related to probable underlying liver disease/ Plt count slightly better today. Continue to follow. (5) Elevated LFTs: Code(s): R79.89 - Other specified abnormal findings of blood chemistry Status: Acute Assessment and Plan: AST slightly elevated at 95 with TB 2.9 on admission felt related to alcohol use. AST back up but probably chronic. Hepatitis panel negative. Bili continues to improve. [place] related to alcoholism. Monitor periodically. Check RUQ US. (6) Alcoholism: Code(s): F10.20 - Alcohol dependence, uncomplicated Status: Acute Assessment and Plan: She drinks 3-6 alcoholic drinks per day with more on the weekends. Hx of alcohol w/d and esophageal varices in July 2019. Continue Thiamine and Folate. Ativan available as needed and she has received 3 doses thus far. Librium has been scheduled. No evidence of withdrawal. Will decreased librium today (7) Anxiety: Code(s): F41.9 - Anxiety disorder, unspecified Status: Acute Assessment and Plan: Mood stable. Ativan available as needed as she has required 3 doses thus far. Librium scheduled started (8) Hypertension: Code(s): I10 - Essential (primary) hypertension Status: Acute Assessment and Plan: Patient's blood pressure was reviewed on 06/28 Blood pressure remains well controlled. Will continue curre
--- NOTE | 2020-06-29 11:04 | PC.NURSE ---
Patient returned from GI lab via hospital stretcher.
[2020-06-29] MEDS: PANTOPRAZOLE SODIUM IV 40 MG VIAL IV PUSH ×2 (11:07→21:01)
[2020-06-29] MEDS: PROPRANOLOL HCL 20 MG TABLET PO ×2 (11:07→21:00)
[2020-06-29] MEDS: FOLIC ACID 1 MG TABLET PO (11:07)
[2020-06-29] MEDS: THIAMINE HCL 100 MG TABLET PO (11:08)
[2020-06-30 05:54] VITALS: BP 121/63; PULSE 76; RESP 14; TEMP 36.6; O2SAT 100
[2020-06-30] MEDS: chlordiazePOXIDE (*CRX) 25 MG CAPSULE PO (05:56)
[2020-06-30 05:59] LABS: Basophils Absolute Auto 0.1 K/mm3 (0.0-0.1); Basophils Percent Auto 0.8 % (0.2-1.2); Eosinophils Absolute Auto 0.2 K/mm3 (0-0.3); Eosinophils Percent Auto 3.2 % (0-4.4); Hematocrit 28.1 % (37.0-47.0); Hemoglobin 8.9 g/dL (12.0-15.0); Immature Granulocyte Absolute 0.02 K/mm3 (0.00-0.031); Immature Granulocyte Percent A 0.3 % (0-0.5); Immature Platelet Fraction Pct 7.9 % (0.9-11.2); Lymphocytes Absolute Auto 0.68 K/mm3 (0.9-3.2); Lymphocytes Percent Auto 9.5 % (18.3-44.2); Mean Corpuscular HGB Conc 31.7 g/dl (32-36); Mean Corpuscular Hemoglobin 29.5 pg (26-34); Mean Platelet Volume 11.3 fl (7.4-10.4); Monocytes Absolute Auto 1.2 K/mm3 (0.1-0.6); Monocytes Percent Auto 16.3 % (2.6-8.5); Neutrophils Percent Auto 69.9 % (45.5-73.1); Platelet Count Result 104 k/mm3 (150-375); Red Blood Count 3.02 M/mm3 (4.2-5.4); Red Cell Distribution Width 19.6 % (11.5-14.5); White Blood Count 7.2 K/mm3 (4.5-10.0)
[2020-06-30 06:04] LABS: Alanine Aminotransferase 19 U/L (4-35); Albumin Level 3.1 g/dL (3.5-5.1); Alkaline Phosphatase 123 U/L (38-126); Anion Gap 5 mmol/L (8-16); Aspartate Amino Transferase 74 U/L (14-36); Bilirubin,Total 2.1 mg/dL (0.2-1.3); Blood Urea Nitrogen 11 mg/dL (7-17); Calcium 8.3 mg/dL (8.4-10.2); Carbon Dioxide 25 mmol/L (22-30); Chloride 107 mmol/L (98-107); Estimated CRCL calculation 80 ml/min; Estimated Glomerular Filt Rate > 60; Glucose 87 mg/dL (65-105); Sodium 137 mmol/L (137-145)
--- NOTE | 2020-06-30 07:59 | WPDANESPN ---
Anes - Prog Note Post-Op Date/Time: 06/30/20 07:59 Cardiovascular status: normal Respiratory status: normal Airway patency: baseline Mental status: baseline Post-Op hydration status: normal Vital Signs: Last Vital Signs Temp 97.9 F 06/30/20 05:54 Pulse 76 06/30/20 05:54 Resp 14 06/30/20 05:54 BP 121/63 06/30/20 05:54 Pulse Ox 100 06/30/20 05:54 Pain Score (VAS): 05/01 I/O: Intake & Output 06/29/20 06/29/20 06/30/20 15:59 23:59 07:59 Intake Total 240 1030 300 Output Total 900 Balance 240 130 300 Laboratory Tests 06/30/20 05:06 06/30/20 05:06 06/30/20 06/30/20 05:06 05:06 WBC 7.2 RBC 3.02 L Hgb 8.9 L Hct 28.1 L MCV 93.0 MCH 29.5 MCHC 31.7 L RDW 19.6 H Plt Count 104 L MPV 11.3 H Immature Gran % (Auto) 0.3 Neut % (Auto) 69.9 Lymph % (Auto) 9.5 L Sullivan % (Auto) 16.3 H Eos % (Auto) 3.2 Baso % (Auto) 0.8 Lymph # (Auto) 0.68 L Sullivan # (Auto) 1.2 H Eos # (Auto) 0.2 Baso # (Auto) 0.1 Abs Immat Gran (auto) 0.02 Absolute Neuts (auto) 5.0 Absolute Nucleated RBC 0.0 Nucleated RBC % 0.0 % Immature Plt Fraction 7.9 Sodium 137 Potassium 4.0 Chloride 107 Carbon Dioxide 25 Anion Gap 5 L BUN 11 Creatinine 0.60 L Estim Creat Clear Calc 80 Estimated GFR > 60 Glucose 87 Calcium 8.3 L Total Bilirubin 2.1 H AST 74 H ALT 19 Alkaline Phosphatase 123 Total Protein 7.0 Albumin 3.1 L Patient Feedback: Patient satisfied with anesthetic care.
[2020-06-30 08:38] VITALS: PULSE 74
[2020-06-30] MEDS: PROPRANOLOL HCL 20 MG TABLET PO (08:38)
[2020-06-30] MEDS: FOLIC ACID 1 MG TABLET PO (08:38)
[2020-06-30] MEDS: PANTOPRAZOLE SODIUM IV 40 MG VIAL IV PUSH (08:38)
[2020-06-30] MEDS: THIAMINE HCL 100 MG TABLET PO (08:38)
--- NOTE | 2020-06-30 09:32 | PM.DS ---
DS: Admitting Diagnosis Admitting Diagnosis Admitting Diagnosis: GI bleed Esophageal viruses DS: Discharge Diagnosis Discharge Diagnosis (1) GI bleed: Qualifiers: GI bleed type/associated pathology: gastrointestinal hemorrhage with hematemesis Qualified Code(s): K92.0 - Hematemesis Code(s): K92.2 - Gastrointestinal hemorrhage, unspecified Status: Acute Assessment and Plan: Patient present to ED with complaints of vomiting blood and dark stools. She was recently binging/purging and noted hematemesis. She then developed abdominal bloating with several episodes of hematemesis that was dark red blood with clots and then later having soft, black and tarry stools. She was started on octreotide. EGD 06/27/20 showing medium grade III esophageal varices in the distal esophagus with stigmata of recent bleeding. These were banded. Also noted was diffuse alcoholic gastritis. Appreciate GI input. Octreotide has been stopped. Continue to monitor HH or other evidence of re-bleeding. Abx started for upper GI bleed, now stopped. s/p repeat EGD 06/29: small grade I varices distal esophagus, banded varices visible, moderate diffuse alcoholic gastritis in body of stomach. continue PPI. dsicussed avoid alcohol and binging/purging (2) Esophageal varices: Onset Date: ~07/2019 Qualifiers: Esophageal varices bleeding: with bleeding Esophageal varices type: unspecified type Qualified Code(s): I85.01 - Esophageal varices with bleeding Code(s): I85.00 - Esophageal varices without bleeding Status: Acute Assessment and Plan: Patietn with hx of EV with hx of bleeding s/p banding. She has had recurrence and banding aagain Continue propranolol. (3) Chronic anemia: Code(s): D64.9 - Anemia, unspecified Status: Acute Assessment and Plan: Acute on chronic. Unclear on baseline Hgb. Hgb 9.3 on admission but has dropped to 7.0 on 06/27/20 related to the GI bleed. Transfusion ordered of 1U PRBC. Repeat Hgb climbed to 8.4 and has remained stable since. Follow for stability. (4) Thrombocytopenia: Code(s): D69.6 - Thrombocytopenia, unspecified Status: Acute Assessment and Plan: Plt count 143 but has dropped to 91K yesterday morning related to probable underlying liver disease/ Plt count slightly better today. Continue to follow. (5) Elevated LFTs: Code(s): R79.89 - Other specified abnormal findings of blood chemistry Status: Acute Assessment and Plan: AST slightly elevated at 95 with TB 2.9 on admission felt related to alcohol use. AST back up but probably chronic. Hepatitis panel negative. Bili continues to improve. [place] related to alcoholism. Monitor periodically. Check RUQ US. (6) Alcoholism: Code(s): F10.20 - Alcohol dependence, uncomplicated Status: Acute Assessment and Plan: She drinks 3-6 alcoholic drinks per day with more on the weekends. Hx of alcohol w/d and esophageal varices in July 2019. Continue Thiamine and Folate. Ativan available as needed and she has received 3 doses thus far. Librium has been scheduled. No evidence of withdrawal. Will decreased librium today (7) Anxiety: Code(s): F41.9 - Anxiety disorder, unspecified Status: Acute Assessment and Plan: Mood stable. Ativan available as needed as she has required 3 doses thus far. Librium scheduled started (8) Hypertension: Code(s): I10 - Essential (primary) hypertension Status: Acute Assessment and Plan: Patient's blood pressure was reviewed on 06/28 Blood pressure remains well controlled. Will continue current medications with propranolol. Lisinopril/HCTZ on hold. (9) Bulimia: Code(s): F50.2 - Bulimia nervosa Status: Acute Assessment and Plan: Patient will need to follow up with mental health provider. SW to provide info about mental health
== END 2020-06-30 10:45 | disposition home or self-care (01) | DRG 369 ==
LOC: ANHED 15:24 → ANHICU 06-27 07:16 → ANH3MED 06-28 15:31 → ANHICU 07-01 14:00
PROVIDERS: Internal Medicine; Internal Medicine Gastroenterology; Physician Assistant; Admitting Provider Internal Medicine; Emergency Provider Emergency Medicine; PCP Family Medicine; Visit Provider Internal Medicine
PROC: 0DJ08ZZ Inspection of Upper Intestinal Tract, Via Natural or Artificial Opening Endoscopic (ICD-10-PCS; CPT 43235; principal; 2020-06-27 10:30)
DX: I85.01 Esophageal varices with bleeding (principal); F50.2 Bulimia nervosa; D62 Acute posthemorrhagic anemia; D69.6 Thrombocytopenia, unspecified; F10.20 Alcohol dependence, uncomplicated; K29.20 Alcoholic gastritis without bleeding; I10 Essential (primary) hypertension; G62.9 Polyneuropathy, unspecified; F41.9 Anxiety disorder, unspecified; R79.89 Other specified abnormal findings of blood chemistry; J45.909 Unspecified asthma, uncomplicated; Z79.899 Other long term (current) drug therapy; Z87.891 Personal history of nicotine dependence
CPT/HCPCS: 36415; 36430; 76705; 80053; 80074; 82607; 82728; 82746; 83540; 83550; 83690; 83735; 84100; 84443; 84702; 85014; 85018; 85025; 85027; 85055; 85610; 85730; 86850; 86900; 86901; 86923; 87081; 93005; 96361; 96365; 96375; 99285; A9270; C9113; J0696; J2001; J2060; J2354; J2405; J2704; J3411; J3475; J7030; J7120; P9016

== ENCOUNTER → 2020-09-24 01:20 | Outpatient (CLI) | payer OTHER, SELFPAY ==
[2020-09-24 19:37] LABS: SARS-CoV-2 RNA PCR Negative
== END ==
PROVIDERS: PCP Physician Assistant; Visit Provider Internal Medicine Gastroenterology
DX: Z01.812 Encounter for preprocedural laboratory examination (principal); Z20.822 Contact with and (suspected) exposure to COVID-19
CPT/HCPCS: C9803; U0003; U0005

== ENCOUNTER 2020-09-28 01:29 | Day surgery (SDC) | payer OTHER, SELFPAY ==
[2020-09-15 14:05] VITALS: BMI 18.9
[2020-09-28 11:12] VITALS: BP 140/80; PULSE 58; RESP 18; TEMP 36.3; O2SAT 100; BMI 19.2
[2020-09-28] MEDS: LACTATED RINGERS 1,000 ML 150 ML IV CONT (11:37)
--- NOTE | 2020-09-28 11:46 | WPDANESEPPF ---
Anes - Initial Pre Proc Eval Procedure: Operation Date: 09/28/20 12:15 Proposed Procedures p Esophagogastroduodenoscopy & Colonoscopy - Grzegorz Arroyo MD Date/Time: 09/28/20 11:46 Surgeon: Grzegorz Arroyo MD Pre Op Diagnosis: melena, esophageal varices Patient Data Age: 55 Gender: F Height: 5 ft 4 in Weight: 50.9 kg Last Vital Signs Temp 97.3 F L 09/28/20 11:12 Pulse 58 L 09/28/20 11:12 Resp 18 09/28/20 11:12 BP 140/80 09/28/20 11:12 Pulse Ox 100 09/28/20 11:12 Allergies Allergy/AdvReac Type Severity Reaction Status Date / Time oats Allergy Hives Verified 09/28/20 11:11 codeine AdvReac Unknown Nausea and Verified 09/28/20 11:11 Vomiting Home Medications Medication Instructions Recorded Confirmed Type folic acid 400 mcg tablet 0.4 mg PO DAILY #90 tablet 08/31/19 09/15/20 Rx albuterol sulfate 90 mcg/actuation 2 puff INHALATION Q4-6H PRN #18 gm 11/17/19 09/15/20 Rx aerosol inhaler lisinopril 10 1 tablet PO DAILY #90 tablet 01/26/20 09/15/20 Rx mg-hydrochlorothiazide 12.5 mg tablet escitalopram oxalate 10 mg tablet 10 mg PO DAILY #30 tablet 07/18/20 09/15/20 Rx pantoprazole 40 mg tablet,delayed 40 mg PO Q12HR #180 tablet 08/18/20 09/15/20 Rx release propranolol 20 mg tablet 20 mg PO Q12HR #180 tablet 08/18/20 09/15/20 Rx magnesium oxide 250 mg PO DAILY 09/12/20 09/15/20 History potassium gluconate 550 mg (90 mg) 550 mg PO DAILY 09/12/20 09/15/20 History tablet timolol 0.5 %-dorzolamide 2 1 drp OPHTHALMIC (EYE) 09/12/20 09/12/20 History %-latanprost 0.005 % (PF) eye drops Patient hx anesthesia problems: none Family hx anesthesia problems: none PMFSH Past Medical History Medical History Alcoholism Anxiety Asthma Chronic anemia Esophageal varices (~07/2019) Status post band ligation in July 2019. Nonbleeding varices on EGD in September 2019. Hiatal hernia Hypertension Peripheral neuropathy Restless leg syndrome Thrombocytopenia Upper gastrointestinal hemorrhage (~07/2019) Esophageal varices bleeding, status post band ligation. Surgical History Surgical History History of endoscopy (~07/2019) Band ligation of esophageal varices. History of hand surgery ORIF left hand fracture with hardware. History of tonsillectomy Family History Family History Father Family history of cardiovascular disease Hypertension Cancer CHF (congestive heart failure) Mother Brain cancer Skin cancer Social History Social History Social History: The patient is and lives with her in [place]. 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 She smoked for short period of time many years ago. Consumes about 6 alcoholic beverages a day, more on the weekends as detailed in HPI. No illicit substance use. She designates her Gulshan as her surrogate decision maker and wishes to be a full code. 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
--- NOTE | 2020-09-28 12:15 | PM.HPGS ---
History of Present Illness History of Present Illness Consent: Risks, benefits, and alternatives have been discussed and questions answered. Patient agrees to proceed with procedure. Chief complaint: melena, esophageal varices Narrative: Na Brasher is a 55 year old female with alcohol liver disease and last hospitalization with GIB due to EV bleeding that required banding, quit drinking 2 months ago. Now using propranolol, never had colonoscopy Review of Systems Constitutional: Constitutional: Denies headache(s) and Denies weakness Eyes: Eyes: Denies blurry vision ENT: Reports Normal hearing present, Denies headache(s) and Denies neck pain Cardiovascular: Cardiovascular: Denies chest pain and Denies dyspnea Respiratory: Respiratory: Denies dyspnea Gastrointestinal: Gastrointestinal: Reports no additional gastrointestinal complaints Genitourinary: Genitourinary: Denies dysuria Musculoskeletal: Musculoskeletal: Denies neck pain Integumentary/Breasts: Skin/Breast: Denies dry skin Neurologic: Reports Normal hearing present, Denies headache(s) and Denies weakness Psychiatric: Psychiatric: Denies anxiety Endocrine: Endocrine: Denies change in body appearance Hematologic/Lymphatic: Hematologic/Lymphatic: Denies easy bleeding Allergic/Immunologic: Allergic/Immunologic: Denies urticaria PMF Past Medical History Medical History (Updated 09/28/20 @ 12:19 by Grzegorz Arroyo MD) Alcoholism Anxiety Asthma Chronic anemia Cirrhosis, alcoholic Colon cancer screening Esophageal varices (~07/2019) Status post band ligation in July 2019. Nonbleeding varices on EGD in September 2019. Hiatal hernia Hypertension Peripheral neuropathy Restless leg syndrome Thrombocytopenia Upper gastrointestinal hemorrhage (~07/2019) Esophageal varices bleeding, status post band ligation. Surgical History Surgical History History of endoscopy (~07/2019) Band ligation of esophageal varices. History of hand surgery ORIF left hand fracture with hardware. History of tonsillectomy Family History Family History Father Family history of cardiovascular disease Hypertension Cancer CHF (congestive heart failure) Mother Brain cancer Skin cancer Social History Social History Social History: The patient is and lives with her in [place]. 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 She smoked for short period of time many years ago. Consumes about 6 alcoholic beverages a day, more on the weekends as detailed in HPI. No illicit substance use. She designates her Gulshan as her surrogate decision maker and wishes to be a full code. 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 [employer] Gender identity (if verbalized by the patient): Female Spiritual care concerns: No Agree to blood products: Yes Meds Home Medications and Allergies Home Medications Medication Instructions Recorded Confirmed Type folic acid 400 mcg tablet 0.4 mg PO DAILY #90 tablet 08/31/19 09/15/20 Rx albuterol sulfate 90 mcg/actuation 2 puff INHALATION Q4-6H PRN #18 gm 11/17/19 09/15/20 Rx aerosol inhaler lisinopril 10 1 tablet PO DAILY #90 tablet 01/26/20 09/15/20 Rx mg-hydrochlorothiazide 12.5 mg tablet escitalopram oxalate 10 mg tablet 10 mg PO DAILY #30 tablet 07/18/20 09/15/20 Rx pantoprazole 40 mg tablet,delayed 40 mg PO Q12HR #180 tablet 08/18/20 09/15/20 Rx rele
[2020-09-28 12:45] VITALS: BP 100/67; PULSE 61; RESP 21; O2SAT 99
[2020-09-28 12:55] VITALS: BP 103/65; PULSE 65; RESP 21; O2SAT 100
[2020-09-28 13:04] VITALS: BP 119/63; PULSE 56; RESP 22; O2SAT 100
== END 2020-09-28 13:42 | disposition home or self-care (01) ==
PROVIDERS: PCP Physician Assistant; Visit Provider Internal Medicine Gastroenterology
PROC: 0DJ08ZZ Inspection of Upper Intestinal Tract, Via Natural or Artificial Opening Endoscopic (ICD-10-PCS; CPT 43235; principal; 2020-09-28 12:15)
DX: Z12.11 Encounter for screening for malignant neoplasm of colon (principal); K57.30 Diverticulosis of large intestine without perforation or abscess without bleeding; K64.8 Other hemorrhoids; I85.00 Esophageal varices without bleeding; K44.9 Diaphragmatic hernia without obstruction or gangrene; K29.70 Gastritis, unspecified, without bleeding; I10 Essential (primary) hypertension; J45.909 Unspecified asthma, uncomplicated; D64.9 Anemia, unspecified; G62.9 Polyneuropathy, unspecified; G25.81 Restless legs syndrome; F41.9 Anxiety disorder, unspecified; Z79.51 Long term (current) use of inhaled steroids; Z87.891 Personal history of nicotine dependence; F10.20 Alcohol dependence, uncomplicated
CPT/HCPCS: 45380; 43235; C9803; J2250; J2704; J7120; U0003; U0005

== ENCOUNTER 2020-12-23 11:10 | Outpatient (CLI) | payer OTHER, SELFPAY ==
--- NOTE | ~2020-12-23 | US_ITS ---
EXAMINATION: US right upper quadrant DATE: 12/23/2020 11:49 INDICATION: Esophageal varices with bleeding TECHNIQUE: Multiple grayscale and Doppler ultrasound images of the abdomen were obtained. COMPARISON: 06/29/2020 FINDINGS: Bowel gas obscures visualization of the pancreas. The liver again demonstrates coarsened he terogeneous echotexture. There is nodularity of the liver surface. Normal hepatopetal flow in the edie n portal vein. There is a 4 mm polyp of the gallbladder. No gallbladder wall thickening or pericholec ystic fluid are identified. The normal common bile duct measures 4 mm. There was no sonographic Ondina y sign. IMPRESSION: 1. Sonographic findings consistent with cirrhosis. Reviewed, dictated and finalized at location A.
[2020-12-23 12:04] LABS: Hematocrit 28.3 % (37.0-47.0); Hemoglobin 8.9 g/dL (12.0-15.0); Mean Corpuscular HGB Conc 31.4 g/dl (32-36); Mean Corpuscular Hemoglobin 27.6 pg (26-34); Mean Corpuscular Volume 87.6 fl (80-100); Mean Platelet Volume 10.4 fl (7.4-10.4); Platelet Count Result 165 k/mm3 (150-375); Red Blood Count 3.23 M/mm3 (4.2-5.4)
[2020-12-23 12:07] LABS: INR 1.4; Prothrombin Time 17.1 Seconds (11.1-14.7)
[2020-12-23 12:10] LABS: Alanine Aminotransferase 23 U/L (4-35); Albumin Level 3.8 g/dL (3.5-5.1); Alkaline Phosphatase 140 U/L (38-126); Anion Gap 6 mmol/L (8-16); Aspartate Amino Transferase 46 U/L (14-36); Bilirubin,Total 1.7 mg/dL (0.2-1.3); Blood Urea Nitrogen 15 mg/dL (7-17); Calcium 9.1 mg/dL (8.4-10.2); Carbon Dioxide 27 mmol/L (22-30); Chloride 106 mmol/L (98-107); Estimated Glomerular Filt Rate > 60; Glucose 91 mg/dL (65-110); Potassium 3.8 mmol/L (3.4-5.0); Sodium 139 mmol/L (137-145)
== END 2020-12-23 11:11 | disposition home or self-care (01) ==
PROVIDERS: PCP Family Medicine; Visit Provider Internal Medicine Gastroenterology
DX: I85.01 Esophageal varices with bleeding (principal); K70.30 Alcoholic cirrhosis of liver without ascites
CPT/HCPCS: 36415; 76705; 80053; 85027; 85610

== ENCOUNTER → 2021-05-30 10:15 | Outpatient (CLI) | payer OTHER, SELFPAY ==
--- NOTE | ~2021-05-30 | US_ITS ---
EXAMINATION: US venous doppler [facility] EXAM DATE: 05/30/2021 10:37 INDICATION: M79.89 - Other specified soft tissue disorders. TECHNIQUE: Multiple grayscale, color flow and Doppler images of the left lower extremity deep venous system were obtained and reviewed. There is no prior study for comparison. FINDINGS: The left common femoral, femoral and profunda veins demonstrate normal color flow, respirat ory variation, augmentation and compressibility. Compressibility, color flow confirmed within the le ft popliteal, posterior tibial, peroneal, and greater saphenous veins. IMPRESSION: 1. No left lower extremity deep venous thrombosis. Reviewed, dictated and finalized at location B. 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
== END ==
PROVIDERS: Visit Provider Family Medicine
DX: M79.89 Other specified soft tissue disorders (principal)
CPT/HCPCS: 93971

== ENCOUNTER 2021-06-16 12:35 | Emergency (ER) | payer OTHER, SELFPAY ==
--- NOTE | ~2021-06-16 | CT_ITS ---
EXAMINATION: CT abdomen pelvis w con DATE: 06/16/2021 14:42 INDICATION: Abdominal pain. TECHNIQUE: Computed tomography (CT) of the abdomen and pelvis was performed with 100 mL Omnipaque 350 intravenous contrast. Automated exposure control and iterative reconstruction technique were employe d. The dose-length product was 526.83 mGy-cm. COMPARISON: Abdomen ultrasound 12/23/20 FINDINGS: The visualized portions of the lung bases demonstrate a small left pleural effusion. There is mild atelectasis bilaterally. The heart size is normal. No pericardial effusion. The liver is smal l with nodular surface contour, consistent with cirrhosis. There is a gallstone in the gallbladder, w hich is decompressed. The spleen, pancreas, adrenal glands, and kidneys are normal. There is an intra uterine device in expected position. There is diverticulosis of the colon without evidence of diverti culitis. There are no dilated loops of bowel. The appendix is normal. There is edema of the intra-abd ominal fat. There is a large volume of ascites. There is an umbilical hernia containing ascites. Para esophageal varices are noted. Paraumbilical varices are noted. There are no pathologically enlarged l ymph nodes. There is a total left hip arthroplasty with healing periprosthetic fracture of proximal f emur with cable fixation. There is severe lower lumbar spondylosis. IMPRESSION: 1. Large volume of ascites. 2. Cirrhosis of the liver with portal venous hypertension. 3. Small left pleural effusion. Reviewed, dictated and finalized at location A. N INSPECTOR
--- NOTE | ~2021-06-16 | US_ITS ---
EXAMINATION: US paracentesis abd w/image DATE: 06/16/2021 15:22 INDICATION: Ascites. TECHNIQUE: The procedure and its risks and benefits were discussed with the patient. Potential risks discussed included bleeding and infection. The skin was prepped and draped in sterile fashion. 1% lid ocaine was used for local anesthesia. Under ultrasound guidance, a 5 Fr catheter with trochar was adv anced into the ascites in the left lower quadrant. Fluid was aspirated into vacuum bottles. The mariah ter was removed, and a dressing was applied. There were no immediate complications. FINDINGS: Ultrasound images demonstrate ascites and the catheter within the fluid. IMPRESSION: 1. Successful ultrasound-guided paracentesis yielding 5000 mL of clear light yellow fluid. Reviewed, dictated and finalized at location A. LATION WORKER IMPRESSION: 1. Successful ultrasound-guided paracentesis yielding 5000 mL of clear light y ellow fluid.
[2021-06-16 12:49] VITALS: BP 137/85; PULSE 71; RESP 18; TEMP 36.9; O2SAT 96
--- NOTE | 2021-06-16 13:14 | ED.ABDPAIN ---
HPI - Abdominal Pain General Chief Complaint: Abdominal Pain Stated Complaint: abd distention Time Seen by Provider: 06/16/21 12:49 History of Present Illness HPI narrative: 55-year-old female history of alcoholism presents to the emergency room with abdominal pain. Sent here from her PCPs office for further evaluation of liver cirrhosis/ascites. Patient states 2 weeks ago had a left hip repair, and began developing swelling to bilateral lower extremities. Also notes that over the course of the last month her abdomen began to grow in size, significantly grew in the last 3 days. She states abdomen is distended and is having difficulty breathing. Reports last alcoholic drink was over 1 year ago. Related Data Home Medications Medication Instructions Recorded Confirmed magnesium oxide 250 mg PO DAILY 09/12/20 06/13/21 potassium gluconate 550 mg (90 mg) 550 mg PO DAILY 09/12/20 06/13/21 tablet timolol 0.5 %-dorzolamide 2 1 drp OPHTHALMIC (EYE) 09/12/20 06/13/21 %-latanprost 0.005 % (PF) eye drops escitalopram oxalate 10 mg tablet 10 mg PO DAILY 05/30/21 06/13/21 Allergies Allergy/AdvReac Type Severity Reaction Status Date / Time oats Allergy Hives Verified 06/16/21 12:53 codeine AdvReac Unknown Nausea and Verified 06/16/21 12:53 Vomiting Review of Systems Review of Systems: CONSTITUTIONAL: Denies fever, chills, or sweats. EYES: Denies visual changes, redness, or discharge. ENT: Denies rhinorrhea, congestion, sore throat, or otalgia. CARDIOVASCULAR: Denies chest pain, palpitations, or edema. RESPIRATORY: Denies cough or dyspnea. GASTROINTESTINAL: Reports abdominal pain. GENITOURINARY: Denies dysuria or hematuria. SKIN: Denies rash or itching. MUSCULOSKELETAL: Denies back pain, joint pain, or myalgia. NEUROLOGIC: Denies headache, numbness, dizziness, or weakness. PSYCHIATRIC: Denies anxiety or depression. [facility] Past Medical History Medical History Alcoholism Anxiety Asthma Chronic anemia Cirrhosis, alcoholic Colon cancer screening Encounter for immunization Esophageal varices (~07/2019) Status post band ligation in July 2019. Nonbleeding varices on EGD in September 2019. Hepatic insufficiency Hiatal hernia Hypertension Peripheral neuropathy Restless leg syndrome Sacroiliitis Thrombocytopenia Upper gastrointestinal hemorrhage (~07/2019) Esophageal varices bleeding, status post band ligation. Surgical History Surgical History History of endoscopy (~07/2019) Band ligation of esophageal varices. History of hand surgery ORIF left hand fracture with hardware. History of left hip replacement History of tonsillectomy Family History Family History Father Family history of cardiovascular disease Hypertension Cancer CHF (congestive heart failure) Mother Brain cancer Skin cancer Social History Social History Social History: The patient is and lives with her in [place]. 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 She smoked for short period of time many years ago. Consumes about 6 alcoholic beverages a day, more on the weekends as detailed in HPI. No illicit substance use. She designates her Gulshan as her surrogate decision maker and wishes to be a full code. 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
[2021-06-16 13:32] LABS: Basophils Absolute Auto 0.1 K/mm3 (0.0-0.1); Eosinophils Absolute Auto 0.4 K/mm3 (0-0.3); Eosinophils Percent Auto 4.5 % (0-4.4); Hematocrit 31.9 % (37.0-47.0); Hemoglobin 9.8 g/dL (12.0-15.0); Immature Granulocyte Absolute 0.04 K/mm3 (0.00-0.031); Immature Granulocyte Percent A 0.4 % (0-0.5); Lymphocytes Percent Auto 14.6 % (18.3-44.2); Mean Corpuscular HGB Conc 30.7 g/dl (32-36); Mean Corpuscular Hemoglobin 32.7 pg (26-34); Mean Corpuscular Volume 106.3 fl (80-100); Mean Platelet Volume 9.7 fl (7.4-10.4); Monocytes Absolute Auto 1.4 K/mm3 (0.1-0.6); Monocytes Percent Auto 14.6 % (2.6-8.5); Neutrophils Absolute Auto 6.2 K/mm3 (1.3-6.7); Neutrophils Percent Auto 64.9 % (45.5-73.1); Platelet Count Result 230 k/mm3 (150-375); Red Cell Distribution Width 18.5 % (11.5-14.5); White Blood Count 9.6 K/mm3 (4.5-10.0)
[2021-06-16 13:37] LABS: Add Urine Microscopic? YES; Appearance Urine Clear (Clear); Bilirubin Urine 1+ (Negative); Blood Urine Negative (Negative); Color Urine Amber (Yellow); Glucose Urine UA Negative (Negative); Ketones Urine Trace mg/dL (Negative); Leukocyte Esterase Ur 2+ LEU/UL (Negative); Mucus Urine Heavy /lpf; Nitrate Urine Negative (Negative); Protein Urine 2+ mg/dL (Negative); Squamous Epithelial Cell Urine Many /hpf (Few); WBC Urine 51-75 /hpf
[2021-06-16 13:42] LABS: INR 1.6; Prothrombin Time 18.7 Seconds (11.1-14.7)
[2021-06-16 13:43] LABS: Specific Grav Ur 1.034 (1.001-1.035)
[2021-06-16 13:43] LABS: Partial Thromboplastin Time 41.1 SECONDS (22.3-36.8)
[2021-06-16 14:08] LABS: Lactic Acid Reflex 1.5 mmol/L (0.7-2.1)
[2021-06-16] MEDS: SODIUM CHLORIDE 0.9% IV 1,000 ML 150 ML IV CONT (14:14)
[2021-06-16 14:23] LABS: Troponin I 0.021 ng/mL (0.000-0.034)
[2021-06-16 14:27] LABS: NT Pro B Type Natriuretic Pept 348 pg/mL (5-100)
[2021-06-16 14:30] LABS: Alanine Aminotransferase 21 U/L (4-35); Albumin Level 2.8 g/dL (3.5-5.1); Alkaline Phosphatase 314 U/L (38-126); Anion Gap 6 mmol/L (8-16); Aspartate Amino Transferase 56 U/L (14-36); Bilirubin,Total 2.5 mg/dL (0.2-1.3); Blood Urea Nitrogen 14 mg/dL (7-17); Calcium 7.9 mg/dL (8.4-10.2); Carbon Dioxide 22 mmol/L (22-30); Chloride 110 mmol/L (98-107); Estimated CRCL calculation 108 ml/min; Estimated Glomerular Filt Rate > 60; Glucose 97 mg/dL (65-110); Lipase 247 U/L (23-300); Potassium 3.9 mmol/L (3.4-5.0); Sodium 138 mmol/L (137-145)
[2021-06-16 16:00] VITALS: BP 119/76; PULSE 72; RESP 16; O2SAT 98
[2021-06-16 16:30] VITALS: BP 115/66; PULSE 73; RESP 16; O2SAT 100
[2021-06-16] MEDS: ALBUMIN HUMAN 25% 25 GM/100 ML 100 ML IVPB (17:30)
[2021-06-16 17:45] VITALS: BP 100/89; PULSE 78; RESP 16; O2SAT 99
[2021-06-16 18:11] VITALS: BP 113/67; PULSE 74; RESP 16; O2SAT 99
[2021-06-16 18:20] VITALS: BP 114/62; PULSE 82; RESP 18; O2SAT 99
== END 2021-06-16 18:25 | disposition home or self-care (01) ==
PROVIDERS: Emergency Provider Nurse Practitioner Family; PCP Family Medicine
DX: K70.31 Alcoholic cirrhosis of liver with ascites (principal); F10.20 Alcohol dependence, uncomplicated; N30.00 Acute cystitis without hematuria; D64.9 Anemia, unspecified; F41.9 Anxiety disorder, unspecified; J45.909 Unspecified asthma, uncomplicated; K76.6 Portal hypertension; I10 Essential (primary) hypertension; G62.9 Polyneuropathy, unspecified; G25.81 Restless legs syndrome; Y90.9 Presence of alcohol in blood, level not specified; Z96.642 Presence of left artificial hip joint; Z87.891 Personal history of nicotine dependence
CPT/HCPCS: 36415; 49083; 74177; 80053; 81001; 82248; 83605; 83690; 83880; 84484; 85025; 85610; 85730; 87086; 87088; 96361; 96365; 96375; 99285; J0696; J7030; P9047; Q9967

== ENCOUNTER 2021-06-30 10:22 | Outpatient (CLI) | payer OTHER, SELFPAY ==
--- NOTE | ~2021-06-30 | US_ITS ---
EXAMINATION: US paracentesis abd w/image DATE: 06/30/2021 11:14 INDICATION: Ascites. TECHNIQUE: The procedure and its risks, benefits, and alternatives were discussed with the patient. P otential risks discussed included bleeding and infection. The skin was prepped and draped in sterile fashion. 1% lidocaine was used for local anesthesia. Under ultrasound guidance, a 5 Fr catheter with trochar was advanced into the ascites in the left lower quadrant. Fluid was aspirated. The catheter w as removed, and a dressing was applied. There were no immediate complications. FINDINGS: Ultrasound images demonstrate ascites and the catheter within the fluid. IMPRESSION: 1. Successful ultrasound-guided paracentesis yielding 5000 mL of clear, pale yellow fluid. Reviewed, dictated and finalized at location A. SSMENT SERVICES MANAGER IMPRESSION: 1. Successful ultrasound-guided paracentesis yielding 5000 mL of clear, pale y ellow fluid.
[2021-06-30 11:44] LABS: Appearance Peritoneal Fluid Hazy (Clear); Color Peritoneal Fluid Yellow (Colorless); Lymphocytes Peritoneal Fluid 24 %; Mesothelial Cells Peritoneal Fluid 7 %; Monocytes Peritoneal Fluid 43 %; Neutrophils Peritoneal Fluid 7 % (0-25); Nucleated Cells Peritoneal Flu 151 /uL (0-500); RBC Peritoneal Fluid 66 /uL (0-100000); Source Peritoneal Fluid Peritoneal Fluid
[2021-06-30 11:46] LABS: Macrophages Peritoneal Fluid 19 %
[2021-07-04 13:39] LABS: Albumin Peritoneal Fluid 0.3 g/dL
== END 2021-06-30 10:23 | disposition home or self-care (01) ==
LOC: ANHIMG 10:25
PROVIDERS: PCP Family Medicine; Visit Provider Internal Medicine Gastroenterology
DX: R18.8 Other ascites (principal); K70.30 Alcoholic cirrhosis of liver without ascites
CPT/HCPCS: 49083; 82042; 89051

== ENCOUNTER 2021-07-07 10:02 | Outpatient (CLI) | payer OTHER, SELFPAY ==
--- NOTE | ~2021-07-07 | US_ITS ---
EXAMINATION: US paracentesis abd w/image DATE: 07/07/2021 11:27 INDICATION: Ascites. TECHNIQUE: The procedure and its risks and benefits were discussed with the patient. Potential risks discussed included bleeding and infection. The skin was prepped and draped in sterile fashion. 1% lid ocaine was used for local anesthesia. Under ultrasound guidance, a 5 Fr catheter with trochar was adv anced into the ascites in the left lower quadrant. Fluid was aspirated into vacuum bottles. The mariah ter was removed, and a dressing was applied. There were no immediate complications. FINDINGS: Ultrasound images demonstrate ascites and the catheter within the fluid. IMPRESSION: 1. Successful ultrasound-guided paracentesis yielding 5000 mL of bright yellow fluid. Reviewed, dictated and finalized at location A.
== END 2021-07-07 10:03 | disposition home or self-care (01) ==
LOC: ANHIMG 10:04
PROVIDERS: PCP Family Medicine; Visit Provider Internal Medicine Gastroenterology
DX: R18.8 Other ascites (principal)
CPT/HCPCS: 49083

== ENCOUNTER 2021-07-14 10:42 | Outpatient (RCR) | payer OTHER, SELFPAY ==
--- NOTE | ~2021-07-14 | US_ITS ---
EXAMINATION: US paracentesis abd w/image DATE: 07/14/2021 11:20 INDICATION: Ascites. TECHNIQUE: The procedure and its risks and benefits were discussed with the patient. Potential risks discussed included bleeding and infection. The skin was prepped and draped in sterile fashion. 1% lid ocaine was used for local anesthesia. Under ultrasound guidance, a 5 Fr catheter with trochar was adv anced into the ascites in the right lower quadrant. Fluid was aspirated into vacuum bottles. The cath eter was removed, and a dressing was applied. There were no immediate complications. FINDINGS: Ultrasound images demonstrate ascites and the catheter within the fluid. IMPRESSION: 1. Successful ultrasound-guided paracentesis yielding 5000 mL of cloudy light yellow fluid. Reviewed, dictated and finalized at location A.
== END 2021-10-12 23:59 | disposition home or self-care (01) ==
LOC: ANHIMG 10:42
PROVIDERS: PCP Family Medicine; Visit Provider Internal Medicine Gastroenterology
DX: R18.8 Other ascites (principal)
CPT/HCPCS: 49083

== ENCOUNTER 2021-07-20 13:16 | Outpatient (CLI) | payer OTHER, SELFPAY ==
--- NOTE | ~2021-07-20 | US_ITS ---
EXAMINATION: US paracentesis abd w/image DATE: 07/20/2021 14:20 INDICATION: Ascites. TECHNIQUE: The procedure and its risks and benefits were discussed with the patient. Potential risks discussed included bleeding and infection. The skin was prepped and draped in sterile fashion. 1% lid ocaine was used for local anesthesia. Under ultrasound guidance, a 5 Fr catheter with trochar was adv anced into the ascites in the left lower quadrant. Fluid was aspirated into vacuum bottles. The mariah ter was removed, and a dressing was applied. There were no immediate complications. FINDINGS: Ultrasound images demonstrate ascites and the catheter within the fluid. IMPRESSION: 1. Successful ultrasound-guided paracentesis yielding 5000 mL of cloudy light yellow fluid. Reviewed, dictated and finalized at location A.
== END 2021-07-20 13:17 | disposition home or self-care (01) ==
LOC: ANHIMG 13:18
PROVIDERS: PCP Family Medicine; Visit Provider Internal Medicine Gastroenterology
DX: R18.8 Other ascites (principal)
CPT/HCPCS: 49083

== ENCOUNTER 2021-07-25 13:20 | Outpatient (CLI) | payer OTHER, SELFPAY ==
--- NOTE | ~2021-07-25 | US_ITS ---
EXAMINATION: US venous doppler [facility] DATE: 07/25/2021 13:45 INDICATION: Left lower limb swelling and erythema TECHNIQUE: Grayscale ultrasound images without and with compression and Doppler ultrasound images of the left lower extremity veins were obtained. COMPARISON: None. FINDINGS: The visualized portions of left common femoral vein, profunda (deep) femoral vein, femoral vein, popl iteal vein, peroneal veins, posterior tibial veins, gastrocnemius vein and greater saphenous vein out flow are patent. IMPRESSION: 1. No deep venous thrombosis in the left lower limb. Reviewed, dictated and finalized at location B.
== END 2021-07-25 13:21 | disposition home or self-care (01) ==
LOC: ANHIMG 13:21
PROVIDERS: PCP Family Medicine; Visit Provider Physician Assistant
DX: R60.0 Localized edema (principal)
CPT/HCPCS: 93971

== ENCOUNTER 2021-08-04 13:32 | Outpatient (CLI) | payer OTHER, SELFPAY ==
[2021-08-04 11:49] LABS: Hematocrit 34.9 % (37.0-47.0); Mean Corpuscular HGB Conc 31.5 g/dl (32-36); Mean Corpuscular Hemoglobin 30.2 pg (26-34); Mean Corpuscular Volume 95.9 fl (80-100); Platelet Count Result 212 k/mm3 (150-375); Red Blood Count 3.64 M/mm3 (4.2-5.4); Red Cell Distribution Width 15.5 % (11.5-14.5); White Blood Count 6.4 K/mm3 (4.5-10.0)
[2021-08-04 12:03] LABS: Alanine Aminotransferase 22 U/L (4-35); Albumin Level 3.3 g/dL (3.5-5.1); Alkaline Phosphatase 248 U/L (38-126); Anion Gap 5 mmol/L (8-16); Aspartate Amino Transferase 58 U/L (14-36); Bilirubin,Total 2.6 mg/dL (0.2-1.3); Blood Urea Nitrogen 16 mg/dL (7-17); Calcium 8.5 mg/dL (8.4-10.2); Carbon Dioxide 27 mmol/L (22-30); Chloride 101 mmol/L (98-107); Estimated Glomerular Filt Rate > 60; Glucose 83 mg/dL (65-110); Potassium 3.6 mmol/L (3.4-5.0); Sodium 133 mmol/L (137-145)
[2021-08-04 12:42] LABS: INR 1.5; Prothrombin Time 17.3 Seconds (11.1-14.7)
[2021-08-08 12:51] LABS: Mitochondrial (M2) Ab (IgG) <=20.0 U (<=20.0)
[2021-08-09 15:13] LABS: Ceruloplasmin 32 mg/dL (18-53)
== END 2021-08-04 13:33 | disposition home or self-care (01) ==
PROVIDERS: PCP Family Medicine; Visit Provider Internal Medicine Gastroenterology
DX: K70.30 Alcoholic cirrhosis of liver without ascites (principal); R74.8 Abnormal levels of other serum enzymes
CPT/HCPCS: 36415; 49083; 80053; 82104; 82390; 83520; 85027; 85610; 86038

== ENCOUNTER 2021-08-18 10:30 | Outpatient (RCR) | payer OTHER, SELFPAY ==
--- NOTE | ~2021-08-18 | US_ITS ---
EXAMINATION: US paracentesis abd w/image DATE: 08/11/2021 11:19 INDICATION: Ascites. TECHNIQUE: The procedure and its risks and benefits were discussed with the patient. Potential risks discussed included bleeding and infection. The skin was prepped and draped in sterile fashion. 1% lid ocaine was used for local anesthesia. Under ultrasound guidance, a 5 Fr catheter with trochar was adv anced into the ascites in the left lower quadrant. Fluid was aspirated into vacuum bottles. The mariah ter was removed, and a dressing was applied. There were no immediate complications. FINDINGS: Ultrasound images demonstrate ascites and the catheter within the fluid. IMPRESSION: 1. Successful ultrasound-guided paracentesis yielding 4600 mL of clear yellow fluid. Reviewed, dictated and finalized at location A.
--- NOTE | ~2021-08-18 | US_ITS ---
EXAMINATION: US paracentesis abd w/image DATE: 08/04/2021 12:34 INDICATION: Ascites. TECHNIQUE: The procedure and its risks, benefits, and alternatives were discussed with the patient. P otential risks discussed included bleeding and infection. The skin was prepped and draped in sterile fashion. 1% lidocaine was used for local anesthesia. Under ultrasound guidance, a 5 Fr catheter with trochar was advanced into the ascites in the left lower quadrant. Fluid was aspirated. The catheter w as removed, and a dressing was applied. There were no immediate complications. FINDINGS: Ultrasound images demonstrate ascites and the catheter within the fluid. IMPRESSION: 1. Successful ultrasound-guided paracentesis yielding 5000 mL of cloudy, light yellow fluid. Reviewed, dictated and finalized at location A.
--- NOTE | ~2021-08-18 | US_ITS ---
EXAMINATION: US paracentesis abd w/image DATE: 08/18/2021 11:51 INDICATION: Ascites. TECHNIQUE: The procedure and its risks, benefits, and alternatives were discussed with the patient. P otential risks discussed included bleeding and infection. The skin was prepped and draped in sterile fashion. 1% lidocaine was used for local anesthesia. Under ultrasound guidance, a 5 Fr catheter with trochar was advanced into the ascites in the left lower quadrant. Fluid was aspirated. The catheter w as removed, and a dressing was applied. There were no immediate complications. FINDINGS: Ultrasound images demonstrate ascites and the catheter within the fluid. IMPRESSION: 1. Successful ultrasound-guided paracentesis yielding 4300 mL of clear, yellow fluid. Reviewed, dictated and finalized at location A.
--- NOTE | ~2021-08-18 | US_ITS ---
EXAMINATION: US paracentesis abd w/image DATE: 07/28/2021 11:23 INDICATION: Ascites. TECHNIQUE: The procedure and its risks, benefits, and alternatives were discussed with the patient. P otential risks discussed included bleeding and infection. The skin was prepped and draped in sterile fashion. 1% lidocaine was used for local anesthesia. Under ultrasound guidance, a 5 Fr catheter with trochar was advanced into the ascites in the left lower quadrant. Fluid was aspirated. The catheter w as removed, and a dressing was applied. There were no immediate complications. FINDINGS: Ultrasound images demonstrate ascites and the catheter within the fluid. IMPRESSION: 1. Successful ultrasound-guided paracentesis yielding 5000 mL of clear, yellow fluid. Reviewed, dictated and finalized at location A.
== END 2021-10-26 23:59 | disposition home or self-care (01) ==
LOC: ANHIMG 10:30
PROVIDERS: PCP Family Medicine; Visit Provider Internal Medicine Gastroenterology
DX: R18.8 Other ascites (principal)
CPT/HCPCS: 49083

== ENCOUNTER 2021-08-28 09:04 | Outpatient (CLI) | payer OTHER, SELFPAY ==
--- NOTE | ~2021-08-28 | US_ITS ---
EXAMINATION: US paracentesis abd w/image DATE: 08/28/2021 10:54 INDICATION: Ascites. TECHNIQUE: The procedure and its risks and benefits were discussed with the patient. Potential risks discussed included bleeding and infection. The skin was prepped and draped in sterile fashion. 1% lid ocaine was used for local anesthesia. Under ultrasound guidance, a 5 Fr catheter with trochar was adv anced into the ascites in the left lower quadrant. Fluid was aspirated into vacuum bottles. The mariah ter was removed, and a dressing was applied. There were no immediate complications. FINDINGS: Ultrasound images demonstrate ascites and the catheter within the fluid. IMPRESSION: 1. Successful ultrasound-guided paracentesis yielding 3550 mL of clear light yellow fluid. Reviewed, dictated and finalized at location A. IMPRESSION: 1. Successful ultrasound-guided paracentesis yielding 3550 mL of clear light y ellow fluid.
== END 2021-08-28 09:05 | disposition home or self-care (01) ==
PROVIDERS: PCP Family Medicine; Visit Provider Internal Medicine Gastroenterology
DX: R18.8 Other ascites (principal)
CPT/HCPCS: 49083

== ENCOUNTER → 2021-09-11 08:26 | Outpatient (CLI) | payer OTHER, SELFPAY ==
--- NOTE | ~2021-09-11 | MMUS_ITS ---
EXAMINATION: MM diagnostic bea BI w parker, US breast BI complete HISTORY: Right breast lump; lumpiness and lateral right breast since weight loss TECHNIQUE: ML, MLO and CC 3-D tomosynthesis images of were performed and synthetic 2-D images were ge nerated. Magnification views of both breasts. CAD analysis was submitted and interpreted. High resolu tion complete bilateral breast ultrasound including all 4 quadrants and subareolar areas was performe d. COMPARISON: 07/11/2018 bilateral screening mammogram BREAST PARENCHYMAL COMPOSITION: The breasts are extremely dense, which lowers the sensitivity of mamm ography. FINDINGS: MAMMOGRAPHIC FINDINGS: Scattered bilateral benign appearing calcifications are noted including popcorn-like calcifications a ssociated with calcified fibroadenomas, arterial calcifications and numerous relatively uniform punct ate microcalcifications. No suspicious linear or branching microcalcifications are noted. No suspicious mass or architectural distortion is noted. The very dense dense stroma however may obsc ure masses. ULTRASOUND: Right breast: There are 2 benign-appearing circumscribed oval hypoechoic lesions with fatty hilus including some hi lar vascularity, consistent with benign appearing lymph nodes, measuring 4.4 x 2.8 x 5.7 mm and 5.4 x 3.0 x 8.8 mm. No suspicious shadowing is noted. Left breast: There are are some prominent calcifications with associated shadowing. No suspicious mass or suspicious shadowing is identified. IMPRESSION: 1. Benign findings; no mammographic evidence of malignancy 2. Routine annual mammographic screening is recommended BI-RADS Category 2: Benign finding(s). Reviewed, dictated and finalized at location A. IMPRESSION: 1. Benign findings; no mammographic evidence of malignancy 2. Routine annual mammographic screening is recommended BI-RADS Category 2: Benign finding(s).
== END ==
PROVIDERS: PCP Family Medicine; Visit Provider Nurse Practitioner
DX: N63.10 Unspecified lump in the right breast, unspecified quadrant (principal); N63.20 Unspecified lump in the left breast, unspecified quadrant
CPT/HCPCS: 76641; 77062; 77066; G0279

== ENCOUNTER 2021-09-11 11:11 | Outpatient (CLI) | payer OTHER, SELFPAY ==
[2021-09-11 11:43] LABS: Hematocrit 34.3 % (37.0-47.0); Hemoglobin 11.2 g/dL (12.0-15.0); Mean Corpuscular HGB Conc 32.7 g/dl (32-36); Mean Corpuscular Hemoglobin 30.3 pg (26-34); Mean Corpuscular Volume 92.7 fl (80-100); Mean Platelet Volume 9.4 fl (7.4-10.4); Platelet Count Result 191 k/mm3 (150-375); Red Cell Distribution Width 17.5 % (11.5-14.5); White Blood Count 5.8 K/mm3 (4.5-10.0)
[2021-09-11 11:56] LABS: INR 1.4
[2021-09-11 11:57] LABS: Alanine Aminotransferase 27 U/L (6-35); Albumin Level 3.3 g/dL (3.5-5.1); Alkaline Phosphatase 226 U/L (38-126); Anion Gap 7 mmol/L (8-16); Aspartate Amino Transferase 54 U/L (14-36); Bilirubin,Total 1.7 mg/dL (0.2-1.3); Blood Urea Nitrogen 17 mg/dL (7-17); Calcium 8.3 mg/dL (8.4-10.2); Carbon Dioxide 27 mmol/L (22-30); Chloride 102 mmol/L (98-107); Estimated Glomerular Filt Rate > 60; Glucose 91 mg/dL (65-110); Potassium 3.6 mmol/L (3.4-5.0); Sodium 136 mmol/L (137-145)
== END 2021-09-11 11:12 | disposition home or self-care (01) ==
PROVIDERS: PCP Family Medicine; Visit Provider Internal Medicine Gastroenterology
DX: K70.30 Alcoholic cirrhosis of liver without ascites (principal)
CPT/HCPCS: 36415; 80053; 85027; 85610

== ENCOUNTER 2021-10-26 09:07 | Outpatient (RCR) | payer OTHER, SELFPAY ==
--- NOTE | ~2021-10-26 | US_ITS ---
EXAMINATION: US paracentesis abd w/image DATE: 09/11/2021 14:47 INDICATION: Ascites. TECHNIQUE: The procedure and its risks, benefits, and alternatives were discussed with the patient. P otential risks discussed included bleeding and infection. The skin was prepped and draped in sterile fashion. 1% lidocaine was used for local anesthesia. Under ultrasound guidance, a 5 Fr catheter with trochar was advanced into the ascites in the left lower quadrant. Fluid was aspirated. The catheter w as removed, and a dressing was applied. There were no immediate complications. FINDINGS: Ultrasound images demonstrate ascites and the catheter within the fluid. IMPRESSION: 1. Successful ultrasound-guided paracentesis yielding 2300 mL of clear, yellow fluid. Reviewed, dictated and finalized at location A.
--- NOTE | ~2021-10-26 | US_ITS ---
EXAMINATION: US abdomen limited DATE: 10/03/2021 10:00 INDICATION: Ascites for planned paracentesis. TECHNIQUE: Multiple grayscale ultrasound images of the 4 quadrants of the abdomen and pelvis were obt ained. COMPARISON: None FINDINGS: Small amount of ascites in the right upper quadrant and small amount of ascites in the deep pelvis al molly the dome of the incompletely distended bladder on real-time imaging. Negligible ascites in the re maining quadrants of the abdomen and pelvis. IMPRESSION: 1. Small amount of ascites in the right upper quadrant and in the deep pelvis, insufficient to warran t paracentesis at this time. Reviewed, dictated and finalized at location A. IMPRESSION: 1. Small amount of ascites in the right upper quadrant and in the deep pelvis, insufficient to warrant paracentesis at this time.
--- NOTE | ~2021-10-26 | US_ITS ---
EXAMINATION: US paracentesis abd w/image DATE: 09/04/2021 11:14 INDICATION: Ascites. TECHNIQUE: The procedure and its risks and benefits were discussed with the patient. Potential risks discussed included bleeding and infection. The skin was prepped and draped in sterile fashion. 1% lid ocaine was used for local anesthesia. Under ultrasound guidance, a 5 Fr catheter with trochar was adv anced into the ascites in the left lower quadrant. Fluid was aspirated into vacuum bottles. The mariah ter was removed, and a dressing was applied. There were no immediate complications. FINDINGS: Ultrasound images demonstrate ascites and the catheter within the fluid. IMPRESSION: 1. Successful ultrasound-guided paracentesis yielding 2600 mL of cloudy light yellow-colored fluid. Reviewed, dictated and finalized at location A.
--- NOTE | ~2021-10-26 | US_ITS ---
US abdomen limited 10/26/2021 10:04 Indication: Evaluate ascites volume Procedure: High-resolution Limited ultrasound of the abdomen Comparison: 10/03/2021 Findings: There is a small pocket of ascites in the right lower quadrant. No other areas of significa nt fluid collections are identified. Impression: 1: Small volume of ascites in the right lower abdomen. Reviewed, dictated and finalized at location A. Impression: 1: Small volume of ascites in the right lower abdomen.
== END 2021-12-03 23:59 | disposition home or self-care (01) ==
LOC: ANHIMG 09:07
PROVIDERS: PCP Family Medicine; Visit Provider Internal Medicine Gastroenterology
DX: K70.31 Alcoholic cirrhosis of liver with ascites (principal)
CPT/HCPCS: 49083; 76705

== ENCOUNTER 2021-11-01 01:03 | Day surgery (SDC) | payer OTHER, SELFPAY ==
[2021-10-11 13:59] VITALS: BMI 18.9
--- NOTE | 2021-10-31 16:05 | WPDANESEPPF ---
Anes - Initial Pre Proc Eval Procedure: Operation Date: 11/01/21 08:00 Proposed Procedures p Esophagogastroduodenoscopy - Grzegorz Arroyo MD Date/Time: 10/31/21 16:05 Surgeon: Grzegorz Arroyo MD Pre Op Diagnosis: esophageal varices, cirrhosis Patient Data Age: 56 Gender: F Height: 1.63 m Weight: 50 kg Allergies Allergy/AdvReac Type Severity Reaction Status Date / Time codeine AdvReac Unknown Nausea and Verified 11/01/21 06:42 Vomiting Home Medications Medication Instructions Recorded Confirmed Type folic acid 400 mcg tablet 0.4 mg PO DAILY #90 tabs 08/31/19 11/01/21 Rx pantoprazole 40 mg tablet,delayed 40 mg PO Q12HR #180 tabs 08/18/20 11/01/21 Rx release magnesium oxide 250 mg PO DAILY 09/12/20 11/01/21 History timolol 0.5 %-dorzolamide 2 1 drp ophthalmic (eye) DAILY 09/12/20 11/01/21 History %-latanprost 0.005 % (PF) eye drops mecobalamin (vitamin B12) 1,000 1,000 mcg sublingual DAILY #90 tabs 12/05/20 11/01/21 Rx mcg disintegrating tablet,sublingual thiamine HCl (vitamin B1) 100 mg 100 mg PO DAILY #90 tabs 12/05/20 11/01/21 Rx tablet furosemide 40 mg tablet (Lasix) 60 mg PO QAM #30 tabs 07/26/21 11/01/21 Rx albuterol sulfate 90 mcg/actuation 2 puff inhalation Q4-6H PRN 08/30/21 11/01/21 Rx aerosol inhaler (Ventolin HFA) Shortness Of Breath Or Wheezing #18 grams diclofenac sodium 1 % topical gel 2 g topical QID #100 grams 09/10/21 11/01/21 Rx (Arthritis Pain (diclofenac)) spironolactone 100 mg tablet 150 mg PO DAILY #60 tabs 10/03/21 11/01/21 Rx (Aldactone) Patient hx anesthesia problems: none Family hx anesthesia problems: none Results Review: All pre-operative results and documents have been reviewed as part of the pre-operative evaluation. [facility] Past Medical History Medical History Alcoholism Anxiety Asthma Chronic anemia Cirrhosis, alcoholic Colon cancer screening Encounter for immunization Esophageal varices (~07/2019) Status post band ligation in July 2019. Nonbleeding varices on EGD in September 2019. Hepatic insufficiency Hiatal hernia Hypertension Peripheral neuropathy Restless leg syndrome Sacroiliitis Thrombocytopenia Upper gastrointestinal hemorrhage (~07/2019) Esophageal varices bleeding, status post band ligation. Surgical History Surgical History History of endoscopy (~07/2019) Band ligation of esophageal varices. History of hand surgery ORIF left hand fracture with hardware. History of left hip replacement History of tonsillectomy Family History Family History Father Family history of cardiovascular disease Hypertension Cancer CHF (congestive heart failure) Mother Brain cancer Skin cancer Social History Social History Social History: The patient is and lives with her in [place]. 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 She smoked for short period of time many years ago. No illicit substance use. She designates her Gulshan as her surrogate decision maker and wishes to be a full code. 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
[2021-11-01 06:44] VITALS: BP 124/74; PULSE 79; RESP 16; TEMP 36.9; O2SAT 100
[2021-11-01] MEDS: LACTATED RINGERS 1,000 ML 150 ML IV CONT (06:48)
--- NOTE | 2021-11-01 08:04 | PM.HPGS ---
History of Present Illness History of Present Illness Consent: Risks, benefits, and alternatives have been discussed and questions answered. Patient agrees to proceed with procedure. Chief complaint: esophageal varices, cirrhosis Narrative: Na Brasher is a 56 year old female with alcoholic cirrhosis now sober with previous gib due to EV s/p banding, last EGD 09/2020 did not require any more banding. Review of Systems Constitutional: Constitutional: Denies headache(s) and Denies weakness Eyes: Eyes: Denies blurry vision ENT: Reports Normal hearing present, Denies headache(s) and Denies neck pain Cardiovascular: Cardiovascular: Denies chest pain and Denies dyspnea Respiratory: Respiratory: Denies dyspnea Gastrointestinal: Gastrointestinal: Reports no additional gastrointestinal complaints Genitourinary: Genitourinary: Denies dysuria Musculoskeletal: Musculoskeletal: Denies neck pain Integumentary/Breasts: Skin/Breast: Denies dry skin Neurologic: Reports Normal hearing present, Denies headache(s) and Denies weakness Psychiatric: Psychiatric: Denies anxiety Endocrine: Endocrine: Denies change in body appearance Hematologic/Lymphatic: Hematologic/Lymphatic: Denies easy bleeding Allergic/Immunologic: Allergic/Immunologic: Denies urticaria PMFSH Past Medical History Medical History Alcoholism Anxiety Asthma Chronic anemia Cirrhosis, alcoholic Colon cancer screening Encounter for immunization Esophageal varices (~07/2019) Status post band ligation in July 2019. Nonbleeding varices on EGD in September 2019. Hepatic insufficiency Hiatal hernia Hypertension Peripheral neuropathy Restless leg syndrome Sacroiliitis Thrombocytopenia Upper gastrointestinal hemorrhage (~07/2019) Esophageal varices bleeding, status post band ligation. Surgical History Surgical History History of endoscopy (~07/2019) Band ligation of esophageal varices. History of hand surgery ORIF left hand fracture with hardware. History of left hip replacement History of tonsillectomy Family History Family History Father Family history of cardiovascular disease Hypertension Cancer CHF (congestive heart failure) Mother Brain cancer Skin cancer Social History Social History Social History: The patient is and lives with her in [place]. 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 She smoked for short period of time many years ago. No illicit substance use. She designates her Gulshan as her surrogate decision maker and wishes to be a full code. 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 [employer] Gender identity (if verbalized by the patient): Female Spiritual care concerns: No Agree to blood products: Yes Meds Home Medications and Allergies Home Medications Medication Instructions Recorded Confirmed Type folic acid 400 mcg tablet 0.4 mg PO DAILY #90 tabs 08/31/19 11/01/21 Rx pantoprazole 40 mg tablet,delayed 40 mg PO Q12HR #180 tabs 08/18/20 11/01/21 Rx release magnesium oxide 250 mg PO DAILY 09/12/20 11/01/21 History timolol 0.5 %-dorzolamide 2 1 drp ophthalmic (eye) DAILY 09/12/20 11/01/21 History %-latanprost 0.005 % (PF) eye drops mecobalamin (vitamin B12) 1,000 1,000 mcg sublingual DAILY #90 tabs 12/05/20 11/01/21 Rx mcg disintegrating tablet
[2021-11-01 08:06] VITALS: BP 96/63; PULSE 74; RESP 20; O2SAT 100
[2021-11-01 08:16] VITALS: BP 108/72; PULSE 69; RESP 17; O2SAT 93
[2021-11-01 08:26] VITALS: BP 111/74; PULSE 68; RESP 15; O2SAT 95
== END 2021-11-01 08:36 | disposition home or self-care (01) ==
PROVIDERS: PCP Family Medicine; Visit Provider Internal Medicine Gastroenterology
PROC: 0DJ08ZZ Inspection of Upper Intestinal Tract, Via Natural or Artificial Opening Endoscopic (ICD-10-PCS; CPT 43235; principal; 2021-11-01 08:00)
DX: K70.30 Alcoholic cirrhosis of liver without ascites (principal); K29.70 Gastritis, unspecified, without bleeding; Z87.19 Personal history of other diseases of the digestive system; I10 Essential (primary) hypertension; D64.9 Anemia, unspecified; G62.9 Polyneuropathy, unspecified; K72.90 Hepatic failure, unspecified without coma; G25.81 Restless legs syndrome; F41.9 Anxiety disorder, unspecified; J45.909 Unspecified asthma, uncomplicated; Z87.891 Personal history of nicotine dependence; Z79.51 Long term (current) use of inhaled steroids
CPT/HCPCS: 43235; J2704; J7120

== ENCOUNTER → 2021-12-12 12:17 | Outpatient (CLI) | payer OTHER, SELFPAY ==
--- NOTE | ~2021-12-12 | DEXA_ITS ---
Bone Density Report Name: ERIK SIMMONS Age: 56 Sex: Female Ethnicity: White Date of : 1965 Indication: osteopenia; history of glucocorticoids; prior fracture; Referring Provider: PARISH RIDLEY Study: Bone densitometry was performed. Exam Date: December 12, 2021 Accession number: [id number] Bone Density: Region BMD T-score Z-score Classification AP Spine (L1-L4) 0.841 -1.9 -0.8 Osteopenia Femoral Neck (Right) 0.595 -2.3 -1.3 Osteopenia Total Hip (Right) 0.634 -2.5 -1.9 Osteoporosis World Health Organization criteria for BMD impression classify patients as: Normal (T-score at or above -1.0), Osteopenia (T-score between -1.0 and -2.5), or Osteoporosis (T-score at or below -2.5). 10-year Fracture Risk: FRAX not reported because: Some T-score for Spine Total or Hip Total or Femoral Neck at or below -2.5 Prior hip or vertebral fracture Previous Exams: Region Exam Age BMD T-score BMD Change BMD Change Date g/cm2 vs Baseline vs Previous AP Spine(L1-L4) 12/12/2021 56 0.841 -1.9 -0.085* -0.085* 01/17/2018 52 0.926 -1.1 Total Hip(Right) 12/12/2021 56 0.634 -2.5 -0.092* -0.092* 01/17/2018 52 0.726 -1.8 *Denotes significance at 95% confidence level, LSC for AP Spine = 0.022 g/cm2, LSC for Total Hip = 0.027 g/cm2 Clinical Information Provided by Patient: Have had a previous hip or vertebral fracture Has had a low trauma fracture Has taken Glucocorticoids Has used the following medications: Vitamin D Patient maximum height was 64 No regular weight bearing exercise Drinks caffeinated beverages Onset of menses at age 16 Number of children 2 Impression: The patient has established osteoporosis, based on the Right Total Hip T-score and the existence of a prior fracture. The patient has risk factors, including: previous fracture, history of glucocorticoid therapy. The BMD for the AP Spine(L1-L4) decreased, changing by -0.085 since the last DXA exam. The BMD for the Total Hip(Right) decreased, changing by -0.092 since the last DXA exam. Discussion: HIGH RISK OF FRACTURE. BONE DENSITY IS UNDESIRABLY LOW AT ONE OR MORE SKELETAL SITES, CONSISTENT WITH POSTMENOPAUSAL OSTEOPOROSIS. This patient's lowest T-score, in a patient who has previously fractured, meets the World Health Organization's (WHO) criteria for severe osteoporosis. In untreated patients, the risk of osteoporotic fracture increases approximately two-fold for each 1.0 SD decrease in T-score. Low bone density is not the only risk factor for
== END ==
PROVIDERS: PCP Family Medicine; Visit Provider Obstetrics & Gynecology Gynecology
DX: Z78.0 Asymptomatic menopausal state (principal); M85.89 Other specified disorders of bone density and structure, multiple sites; M81.0 Age-related osteoporosis without current pathological fracture
CPT/HCPCS: 77080

== ENCOUNTER 2022-01-11 08:38 | Outpatient (CLI) | payer OTHER, SELFPAY ==
[2022-01-11 09:20] LABS: Alanine Aminotransferase 30 U/L (6-35); Alkaline Phosphatase 179 U/L (38-126); Anion Gap 9 mmol/L (8-16); Aspartate Amino Transferase 62 U/L (14-36); Blood Urea Nitrogen 10 mg/dL (7-17); Calcium 8.9 mg/dL (8.4-10.2); Carbon Dioxide 26 mmol/L (22-30); Chloride 104 mmol/L (98-107); Estimated Glomerular Filt Rate > 60; Glucose 100 mg/dL (65-110); Potassium 3.6 mmol/L (3.4-5.0); Sodium 139 mmol/L (137-145)
== END 2022-01-11 08:39 | disposition home or self-care (01) ==
PROVIDERS: PCP Family Medicine; Visit Provider Internal Medicine Gastroenterology
DX: K70.30 Alcoholic cirrhosis of liver without ascites (principal)
CPT/HCPCS: 36415; 80053

== ENCOUNTER 2022-02-20 08:25 | Outpatient (CLI) | payer OTHER, SELFPAY ==
[2022-02-20 08:50] LABS: Calcium 9.2 mg/dL (8.4-10.2)
[2022-02-21 14:35] LABS: Estimated Glomerular Filt Rate > 60
== END 2022-02-20 08:26 | disposition home or self-care (01) ==
LOC: ANHLAB 08:28
PROVIDERS: PCP Family Medicine; Visit Provider Obstetrics & Gynecology Gynecology
DX: N81.0 Urethrocele (principal)
CPT/HCPCS: 36415; 82310; 82565

== ENCOUNTER 2022-02-22 08:52 | Outpatient (CLI) | payer OTHER, SELFPAY ==
[2022-02-22 10:40] LABS: Vitamin D 25 Hydroxy > 126.0 ng/mL
== END 2022-02-22 08:53 | disposition home or self-care (01) ==
LOC: ANHLAB 08:55
PROVIDERS: PCP Family Medicine; Visit Provider Obstetrics & Gynecology Gynecology
DX: Z13.21 Encounter for screening for nutritional disorder (principal); N81.0 Urethrocele; E55.9 Vitamin D deficiency, unspecified
CPT/HCPCS: 36415; 82306

== ENCOUNTER 2022-03-25 12:39 | Outpatient (CLI) | payer OTHER, SELFPAY ==
--- NOTE | ~2022-03-25 | XR_ITS ---
XR abdomen/kub 1V 03/25/2022 13:02 Indication: Diseases of the digestive system Procedure: KUB Comparison: 07/31/2019 Findings: Bowel gas pattern is nonobstructive. Moderate colonic fecal loading. No abnormal calcificat ions. Lung bases are unremarkable. There is an IUD in the pelvis. There is a left total hip arthropla sty. No acute osseous abnormality. Impression: 1: Nonobstructive bowel gas pattern. Reviewed, dictated and finalized at location A. 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
== END 2022-03-25 12:40 | disposition home or self-care (01) ==
PROVIDERS: PCP Family Medicine; Visit Provider Nurse Practitioner
DX: K92.89 Other specified diseases of the digestive system (principal)
CPT/HCPCS: 74018

== ENCOUNTER 2022-03-26 12:16 | Outpatient (CLI) | payer OTHER, SELFPAY ==
[2022-03-26 12:59] LABS: Hematocrit 36.5 % (37.0-47.0); Immature Platelet Fraction Pct 3.4 % (0.9-11.2); Mean Corpuscular HGB Conc 32.9 g/dl (32-36); Mean Corpuscular Hemoglobin 33.1 pg (26-34); Mean Corpuscular Volume 100.6 fl (80-100); Mean Platelet Volume 10.1 fl (7.4-10.4); Platelet Count Result 137 k/mm3 (150-375); Red Blood Count 3.63 M/mm3 (4.2-5.4); Red Cell Distribution Width 15.5 % (11.5-14.5); White Blood Count 4.8 K/mm3 (4.5-10.0)
[2022-03-26 13:06] LABS: INR 1.5; Prothrombin Time 17.2 Seconds (11.1-14.7)
[2022-03-26 13:08] LABS: Alanine Aminotransferase 27 U/L (6-35); Alkaline Phosphatase 151 U/L (38-126); Anion Gap 5 mmol/L (8-16); Aspartate Amino Transferase 68 U/L (14-36); Bilirubin,Total 1.4 mg/dL (0.2-1.3); Blood Urea Nitrogen 9 mg/dL (7-17); Calcium 8.9 mg/dL (8.4-10.2); Carbon Dioxide 26 mmol/L (22-30); Chloride 103 mmol/L (98-107); Estimated Glomerular Filt Rate > 60; Glucose 96 mg/dL (65-110); Potassium 4.2 mmol/L (3.4-5.0); Sodium 134 mmol/L (137-145)
[2022-03-30 17:32] LABS: Alpha Fetoprotein Tumor Marker 6.9 ng/mL (<6.1)
== END 2022-03-26 12:17 | disposition home or self-care (01) ==
LOC: ANHLAB 12:18
PROVIDERS: PCP Family Medicine; Visit Provider Nurse Practitioner
DX: K92.89 Other specified diseases of the digestive system (principal); I85.01 Esophageal varices with bleeding; K70.31 Alcoholic cirrhosis of liver with ascites
CPT/HCPCS: 36415; 80048; 80076; 82105; 85027; 85055; 85610

== ENCOUNTER 2022-08-01 09:45 | Outpatient (CLI) | payer OTHER, SELFPAY ==
--- NOTE | ~2022-08-01 | XR_ITS ---
XR hip LT min 3V w AP pelvis 08/01/2022 10:08 Indication: New onset of left hip pain Procedure: 4 views left hip including AP pelvis Comparison: CT dated 06/16/2021 Findings: There is a left total hip arthroplasty. There is a cerclage wire transfixing the proximal f emur. There is heterotopic ossification. No acute fracture or traumatic malalignment. There is an IUD present in the pelvis. There are pelvic phleboliths. Impression: 1: No acute bone or joint abnormality. Reviewed, dictated and finalized at location B. Impression: 1: No acute bone or joint abnormality.
== END 2022-08-01 09:46 | disposition home or self-care (01) ==
PROVIDERS: PCP Family Medicine; Visit Provider Family Medicine
DX: M25.552 Pain in left hip (principal); Z96.649 Presence of unspecified artificial hip joint
CPT/HCPCS: 73502

== ENCOUNTER 2022-10-08 14:35 | Outpatient (CLI) | payer OTHER, SELFPAY ==
--- NOTE | ~2022-10-08 | CT_ITS ---
CT of the Abdomen and Pelvis: Indication: Abdominal pain Technique: 2.5 mm axial scans were obtained through the abdomen and pelvis following intravenous adm inistration of 100 cc of Omnipaque 350. Dose reduction technique was used on this scan by utilizing a utomated exposure control and iterative reconstruction technique. The dose-length product (DLP) was 2 30.83 mGy-cm. COMPARISON: 06/16/2021 Findings: Scans through the lung bases are unremarkable. Nodular, minimally heterogeneous liver is consistent with cirrhosis. No definite focal mass lesion or biliary dilatation evident. Varices are noted in the upper abdomen, including esophageal varices, pe risplenic varices, and perigastric varices. Spleen is upper limits of normal in size. Tiny gallstones present. The pancreas, adrenals and kidneys are within normal limits. There are atherosclerotic calc ifications of the aorta. No lymphadenopathy. Questionable extensive wall thickening of the stomach versus underdistention. No bowel obstruction. T here is no evidence to suggest acute appendicitis. Images through the pelvis are mildly degraded by streak artifact from left hip arthroplasty. Urinary bladder unremarkable. No adnexal mass evident. No ascites. Impression: Cirrhotic liver with associated extensive upper abdominal/esophageal varices and borderline splenomeg curt. Questionable extensive wall thickening of the stomach versus underdistention. No ascites. Cholelithiasis. Reviewed, dictated and finalized at [facility]. Impression: Cirrhotic liver with associated extensive upper abdominal/esophageal varices an d borderline splenomegaly. Questionable extensive wall thickening of the stomach versus underdistention. No ascites. Cholelithiasis.
== END 2022-10-08 14:36 | disposition home or self-care (01) ==
PROVIDERS: PCP Family Medicine; Visit Provider Nurse Practitioner
DX: R10.13 Epigastric pain (principal); R10.819 Abdominal tenderness, unspecified site; K74.69 Other cirrhosis of liver; K80.20 Calculus of gallbladder without cholecystitis without obstruction
CPT/HCPCS: 74177; Q9967

== ENCOUNTER → 2022-11-15 13:14 | Outpatient (CLI) | payer OTHER, SELFPAY ==
--- NOTE | ~2022-11-15 | MM_ITS ---
EXAMINATION: MM screening [facility] BI w [facility] HISTORY: Screening mammogram TECHNIQUE: Craniocaudal and mediolateral oblique 3-D tomosynthesis images were obtained and synthetic 2-D images were generated. CAD analysis was submitted and interpreted. COMPARISON: 09/11/2021, 07/11/2018, 02/08/2012 BREAST PARENCHYMAL COMPOSITION: The breasts are extremely dense, which lowers the sensitivity of mamm ography. FINDINGS: Scattered benign-appearing calcifications are present. No suspicious mass, calcification, o r architectural distortion are identified in either breast to suggest malignancy. There has been no s uspicious interval change. IMPRESSION: 1. No mammographic evidence of malignancy. 2. Recommend routine screening mammography in one year. BI-RADS Category 2: Benign finding(s). Reviewed, dictated and finalized at location A.
== END ==
PROVIDERS: PCP Nurse Practitioner; Visit Provider Nurse Practitioner
DX: Z12.31 Encounter for screening mammogram for malignant neoplasm of breast (principal)
CPT/HCPCS: 77063; 77067

== ENCOUNTER 2022-11-23 03:52 | Day surgery (SDC) | payer OTHER, SELFPAY ==
[2022-11-13 15:41] VITALS: BMI 19.6
[2022-11-23 00:37] VITALS: BP 108/74; PULSE 58; RESP 16; O2SAT 99
[2022-11-23 08:25] VITALS: BP 123/68; PULSE 58; RESP 20; TEMP 36.7; O2SAT 100
[2022-11-23] MEDS: LACTATED RINGERS 1,000 ML 150 ML IV CONT (08:38)
--- NOTE | 2022-11-23 08:58 | WPDANESEPPF ---
Anes - Initial Pre Proc Eval Procedure: Operation Date: 11/23/22 09:30 Proposed Procedures p Esophagogastroduodenoscopy - Grzegorz Arroyo MD Date/Time: 11/23/22 08:58 Surgeon: Grzegorz Arroyo MD Pre Op Diagnosis: dysphagia Patient Data Age: 57 Gender: F Height: 1.63 m Weight: 52.2 kg Last Vital Signs Temp 98.1 F 11/23/22 08:25 Pulse 58 L 11/23/22 08:25 Resp 20 11/23/22 08:25 BP 123/68 11/23/22 08:25 Pulse Ox 100 11/23/22 08:25 O2 Del Method Room Air 11/23/22 08:25 Allergies Allergy/AdvReac Type Severity Reaction Status Date / Time codeine AdvReac Unknown Nausea and Verified 11/23/22 08:24 Vomiting Home Medications Medication Instructions Recorded Confirmed Type folic acid 400 mcg tablet 0.4 mg PO DAILY #90 tabs 08/31/19 11/13/22 Rx timolol 0.5 %-dorzolamide 2 1 drp ophthalmic (eye) DAILY 09/12/20 11/13/22 History %-latanprost 0.005 % (PF) eye drops thiamine HCl (vitamin B1) 100 mg 100 mg PO DAILY #90 tabs 12/05/20 11/13/22 Rx tablet mecobalamin (vitamin B12) 1,000 1,000 mcg sublingual DAILY #90 tabs 11/01/21 11/13/22 Rx mcg disintegrating tablet,sublingual albuterol sulfate 90 mcg/actuation 2 puff inhalation Q4-6H PRN 11/16/21 11/13/22 Rx aerosol inhaler (Ventolin HFA) Shortness Of Breath Or Wheezing #18 grams spironolactone 100 mg tablet 200 mg PO DAILY 1 month #60 tabs 11/30/21 11/13/22 Rx (Aldactone) polysaccharide iron complex 150 mg 150 mg PO DAILY #100 caps 01/01/22 11/13/22 Rx iron capsule lidocaine 4 % topical patch 1 patch topical DAILY PRN pain #30 01/29/22 11/13/22 Rx ea nadolol 20 mg tablet 20 mg PO DAILY 05/22/22 11/13/22 History pantoprazole 40 mg tablet,delayed See Rx Instructions .Route 06/22/22 11/13/22 Rx release .COMPLEX #180 tabs escitalopram oxalate 10 mg tablet 10 mg PO DAILY #90 tabs 10/03/22 11/13/22 Rx (Lexapro) furosemide 40 mg tablet See Rx Instructions .Route 11/01/22 11/13/22 Rx .COMPLEX #60 tabs diclofenac sodium 1 % topical gel 2 g topical QID PRN Pain 11/13/22 11/13/22 History (Arthritis Pain (diclofenac)) Patient hx anesthesia problems: none Family hx anesthesia problems: none Results Review: All pre-operative results and documents have been reviewed as part of the pre-operative evaluation. [facility] Past Medical History Medical History (Updated 10/01/22 @ 10:34 by Samantha Spring APRN) Alcoholism Anxiety Asthma Chronic anemia Cirrhosis, alcoholic Colon cancer screening Colon cancer screening Dysphagia Encounter for immunization Epigastric abdominal pain Esophageal varices (~07/2019) Status post band ligation in July 2019. Nonbleeding varices on EGD in September 2019. Gas bloat syndrome Hepatic insufficiency Hiatal hernia Hypertension Irritable bowel syndrome with constipation Lower abdominal tenderness Peripheral neuropathy Restless leg syndrome Sacroiliitis Thrombocytopenia Upper gastrointestinal hemorrhage (~07/2019) Esophageal varices bleeding, status post band ligation. Surgical History Surgical History History of endoscopy (~07/2019) Band ligation of esophageal varices. History of hand surgery ORIF left hand fracture with hardware. History of left hip replacement History of tonsillectomy Family History Family History Father Family history of cardiovascular disease Hypertension Cancer CHF (congestive heart failure) Mother Brain cancer Skin cancer Social History Social History Social History: The patient is and lives with her in [place]. 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 She smoked for short period of time many years ago. No illicit substance use. She designates her Gulshan as her surrogate decision maker and wishes t
--- NOTE | 2022-11-23 09:01 | PM.HPGS ---
History of Present Illness History of Present Illness Consent: Risks, benefits, and alternatives have been discussed and questions answered. Patient agrees to proceed with procedure. Chief complaint: dysphagia Narrative: Na Brasher is a 57 year old female with etoh cirrhosis not longer drinking, previous gib due to EV but last EGD 2021 no more obvious varices, recent CT scan cirrhosis, varices, distended stomach. Review of Systems Constitutional: Constitutional: Denies headache(s) and Denies weakness Eyes: Eyes: Denies blurry vision ENT: Reports Normal hearing present, Denies headache(s) and Denies neck pain Cardiovascular: Cardiovascular: Denies chest pain and Denies dyspnea Respiratory: Respiratory: Denies dyspnea Gastrointestinal: Gastrointestinal: Reports no additional gastrointestinal complaints Genitourinary: Genitourinary: Denies dysuria Musculoskeletal: Musculoskeletal: Denies neck pain Integumentary/Breasts: Skin/Breast: Denies dry skin Neurologic: Reports Normal hearing present, Denies headache(s) and Denies weakness Psychiatric: Psychiatric: Denies anxiety Endocrine: Endocrine: Denies change in body appearance Hematologic/Lymphatic: Hematologic/Lymphatic: Denies easy bleeding Allergic/Immunologic: Allergic/Immunologic: Denies urticaria [facility] Past Medical History Medical History (Updated 10/01/22 @ 10:34 by Samantha Spring, RENE) Alcoholism Anxiety Asthma Chronic anemia Cirrhosis, alcoholic Colon cancer screening Colon cancer screening Dysphagia Encounter for immunization Epigastric abdominal pain Esophageal varices (~07/2019) Status post band ligation in July 2019. Nonbleeding varices on EGD in September 2019. Gas bloat syndrome Hepatic insufficiency Hiatal hernia Hypertension Irritable bowel syndrome with constipation Lower abdominal tenderness Peripheral neuropathy Restless leg syndrome Sacroiliitis Thrombocytopenia Upper gastrointestinal hemorrhage (~07/2019) Esophageal varices bleeding, status post band ligation. Surgical History Surgical History History of endoscopy (~07/2019) Band ligation of esophageal varices. History of hand surgery ORIF left hand fracture with hardware. History of left hip replacement History of tonsillectomy Family History Family History Father Family history of cardiovascular disease Hypertension Cancer CHF (congestive heart failure) Mother Brain cancer Skin cancer Social History Social History Social History: The patient is and lives with her in [place]. 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 She smoked for short period of time many years ago. No illicit substance use. She designates her Gulshan as her surrogate decision maker and wishes to be a full code. Smoking packs per day: 0.25 Smoking cigarettes per day: 5.0 Years smoked: 7 Smoking pack-years: 1.75 Smoking status: Never smoker Tobacco type: cigarettes Smoking end date: 04/22/09 Additional smoking assessment comments: social smoker Alcohol intake: former Alcohol use details: Alcohol Abuse 10 Substance use: never Substance use type: does not use Lack of Transportation: No Lack of Food: Never True Current Housing: I Have Housing Concerned About Future Housing: No Difficulty Paying Gas/Electric Bills: No Difficulty Paying for Meds: No Currently Unemployed: No Education: Associate Degree Difficulty w/ Childcare or Family Care: No Living arrangements: alone Occupation/Education: occupation 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
[2022-11-23] MEDS: BENZOCAINE (*SP) 60 ML SPRAY CAN (HURRICAINE) 1 SPRAY MUCOUS MEM (09:08)
[2022-11-23 09:17] VITALS: BP 94/64; PULSE 55; RESP 14; O2SAT 95
[2022-11-23 09:27] VITALS: BP 107/71; PULSE 52; RESP 15; O2SAT 99
== END 2022-11-23 09:51 | disposition home or self-care (01) ==
PROVIDERS: PCP Family Medicine; Visit Provider Internal Medicine Gastroenterology
PROC: 0DJ08ZZ Inspection of Upper Intestinal Tract, Via Natural or Artificial Opening Endoscopic (ICD-10-PCS; CPT 43235; principal; 2022-11-23 09:30)
DX: K70.30 Alcoholic cirrhosis of liver without ascites (principal); I85.10 Secondary esophageal varices without bleeding; K44.9 Diaphragmatic hernia without obstruction or gangrene; K29.70 Gastritis, unspecified, without bleeding; J45.909 Unspecified asthma, uncomplicated; D64.9 Anemia, unspecified; G25.81 Restless legs syndrome; G62.9 Polyneuropathy, unspecified; I10 Essential (primary) hypertension; K58.1 Irritable bowel syndrome with constipation; Z87.891 Personal history of nicotine dependence; Z79.51 Long term (current) use of inhaled steroids
CPT/HCPCS: 43239; J2001; J2704; J7120

== ENCOUNTER 2023-07-03 08:00 | Outpatient (CLI) | payer OTHER, SELFPAY ==
--- NOTE | ~2023-07-03 | US_ITS ---
EXAMINATION: US carotid duplex BI DATE: 07/03/2023 09:00 INDICATION: Speech-language deficit. Facial weakness. Disturbance of skin sensation. TECHNIQUE: Grayscale, color Doppler, and pulsed Doppler images of the cervical carotid arteries were obtained. The degree of vessel stenosis is placed in one of the following categories: normal, <50%, 5 0-69%, >=70% but less than near-occlusion, near-occlusion, or total occlusion. Note that percent sten osis relative to normal distal artery lumen diameter is indirectly measured from velocity measurement s as described by Sergey, et al. Radiology 2003; [id number]. COMPARISON: None. FINDINGS: RIGHT: The right common carotid artery (CCA) peak systolic velocity (PSV) is 124 cm/s. The right internal ca rotid artery (ICA) PSV is 101 cm/s. The right ICA end-diastolic velocity (EDV) is 40 cm/s. The right ICA/CCA PSV ratio is 0.8. Grayscale and color Doppler images yield an estimate of <50% diameter reduc tion from plaque in the ICA. The external carotid artery (ECA) PSV is 93 cm/s. There is antegrade ashia w in the right vertebral artery. LEFT: The left CCA PSV is 102 cm/s. The left ICA PSV is 93 cm/s. The left ICA EDV is 34 cm/s. The left ICA/ CCA PSV ratio is 0.9. Grayscale and color Doppler images yield an estimate of <50% diameter reduction from plaque in the ICA. The ECA PSV is 58 cm/s. There is antegrade flow in the left vertebral artery . IMPRESSION: 1. <50% stenosis in the right internal carotid artery. 2. <50% stenosis in the left internal carotid artery. Reviewed, dictated and finalized at location B.
== END 2023-07-03 08:01 | disposition home or self-care (01) ==
PROVIDERS: PCP Family Medicine; Visit Provider Physician Assistant
DX: I65.23 Occlusion and stenosis of bilateral carotid arteries (principal); R47.89 Other speech disturbances
CPT/HCPCS: 93880

== ENCOUNTER 2023-10-30 07:55 | Outpatient (CLI) | payer MEDICARE, SELFPAY | END 2023-10-30 07:56 | disposition home or self-care (01) | PROVIDERS: PCP Family Medicine; Visit Provider Otolaryngology | DX: H91.93 Unspecified hearing loss, bilateral (principal) | CPT/HCPCS: 92557; 92567 ==

== ENCOUNTER 2023-11-19 08:32 | Outpatient (CLI) | payer MEDICARE, SELFPAY ==
--- NOTE | 2023-11-19 08:37 | ECG_ITS ---
Test Date: 2023-11-19 08:58:21 Measurements Intervals [place] Rate: 51 P: 41 OK: 209 QRS: -11 QRSD: 95 T: -6 QT: 457 QTc: 422 Interpretive Statements SINUS BRADYCARDIA WITH FIRST DEGREE AV BLOCK INCOMPLETE RIGHT BUNDLE BRANCH BLOCK LOW QRS VOLTAGE IN PRECORDIAL LEADS INFERIOR INFARCT, AGE INDETERMINATE BORDERLINE ST-T WAVE ABNORMALITY- ANTERIOR LEADS BASELINE ARTIFACT- I, II, III, AVR, AVL, AVF, V5-V6 ABNORMAL ECG No previous ECG available for comparison Electronically Signed On 11-19-2023 09:40:19 CDT by Jalen Claudio D.O.
[2023-11-19 09:27] LABS: Anion Gap 8 mmol/L (4-12); Blood Urea Nitrogen 12 mg/dL (7-17); Calcium 8.8 mg/dL (8.4-10.2); Carbon Dioxide 33 mmol/L (22-30); Chloride 98 mmol/L (98-107); Estimated Glomerular Filt Rate > 60; Glucose 96 mg/dL (65-110); Potassium 3.6 mmol/L (3.4-5.0); Sodium 139 mmol/L (137-145)
[2023-11-19 09:28] LABS: INR 1.3; Partial Thromboplastin Time 38.1 Seconds (22.3-36.8); Prothrombin Time 16.3 Seconds (11.1-14.7)
== END 2023-11-19 08:33 | disposition home or self-care (01) ==
LOC: ANHSURGERY 08:37
PROVIDERS: Anesthesiology; PCP Family Medicine; Visit Provider Otolaryngology
DX: K72.90 Hepatic failure, unspecified without coma (principal); I10 Essential (primary) hypertension; Z01.818 Encounter for other preprocedural examination; I44.0 Atrioventricular block, first degree; I45.10 Unspecified right bundle-branch block
CPT/HCPCS: 36415; 80048; 85610; 85730; 93005

== ENCOUNTER 2024-01-10 10:48 | Emergency (ER) | payer MEDICARE, SELFPAY ==
[2024-01-10 11:09] VITALS: BP 121/66; PULSE 63; RESP 18; TEMP 36.4; O2SAT 100
--- NOTE | 2024-01-10 15:24 | ED.WOUNDLAC ---
HPI - Wound/Laceration General Chief Complaint: Wound/Laceration Stated Complaint: finger lac Time Seen by Provider: 01/10/24 13:56 Source: patient Mode of arrival: ambulatory Limitations: no limitations History of Present Illness HPI narrative: this is a 58-year-old female that presents to the emergency department for right 2nd finger injury sustained this morning. Reports she accidentally cut her finger with a blade. It has continued to bleed which prompted her to be seen. She is unsure of her last tetanus vaccination. Denies decreased range of motion or numbness Related Data Home Medications Medication Instructions Recorded Confirmed timolol 0.5 %-dorzolamide 2 1 drp ophthalmic (eye) DAILY 09/12/20 12/04/23 %-latanprost 0.005 % (PF) eye drops nadolol 20 mg tablet 20 mg PO DAILY 05/22/22 12/04/23 Allergies Allergy/AdvReac Type Severity Reaction Status Date / Time codeine AdvReac Unknown Nausea and Verified 01/10/24 11:12 Vomiting Review of Systems Review of Systems: CONSTITUTIONAL: Denies fever SKIN: reports laceration NEUROLOGIC: Denies numbness All systems reviewed & are unremarkable except as noted in HPI and below PMFSH Past Medical History Medical History Alcoholism Anxiety Asthma Chronic anemia Cirrhosis, alcoholic Colon cancer screening Colon cancer screening Dysphagia Encounter for immunization Epigastric abdominal pain Esophageal varices (~07/2019) Status post band ligation in July 2019. Nonbleeding varices on EGD in September 2019. Gas bloat syndrome Hepatic insufficiency Hiatal hernia Hypertension Irritable bowel syndrome with constipation Lower abdominal tenderness Peripheral neuropathy Restless leg syndrome Sacroiliitis Thrombocytopenia Upper gastrointestinal hemorrhage (~07/2019) Esophageal varices bleeding, status post band ligation. Surgical History Surgical History History of endoscopy (~07/2019) Band ligation of esophageal varices. History of hand surgery ORIF left hand fracture with hardware. History of left hip replacement History of tonsillectomy Family History Family History Father Family history of cardiovascular disease Hypertension Cancer CHF (congestive heart failure) Alcoholism Heart disease Mother Brain cancer Skin cancer Grandparent Hypertension Depression Grandparent Alcoholism Heart disease Social History Social History Social History: The patient is and lives with her in [place]. 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 She smoked for short period of time many years ago. No illicit substance use. She designates her Gulshan as her surrogate decision maker and wishes to be a full code. Smoking packs per day: 0.25 Smoking cigarettes per day: 5.0 Years smoked: 10 Smoking pack-years: 2.50 Smoking status: Former smoker Tobacco type: cigarettes Smoking end date: 11/17/13 Additional smoking assessment comments: social smoker Alcohol intake: former Alcohol use details: Alcohol Abuse 10 Substance use: never Substance use type: does not use Lack of Transportation: No Lack of Food: Never True Current Housing: I Have Housing Concerned About Future Housing: No Difficulty Paying Gas/Electric Bills: No Difficulty Paying for Meds: No Currently Unemployed: No Education: Associate Degree Difficulty w/ Childcare or Family Care: No Living arrangements: with family Occupation/Education: occupation 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
[2024-01-10] MEDS: TETANUS,DIPHTHERIA,AC PERTUSSIS ADULT (0.5 ML) BOOSTRIX IM (15:44)
[2024-01-10 16:57] VITALS: BP 137/72; PULSE 87; RESP 18; TEMP 37.1; O2SAT 100
== END 2024-01-10 16:58 | disposition home or self-care (01) ==
PROVIDERS: Emergency Provider Physician Assistant; PCP Family Medicine
DX: S61.210A Laceration without foreign body of right index finger without damage to nail, initial encounter (principal); W26.0XXA Contact with knife, initial encounter; K70.30 Alcoholic cirrhosis of liver without ascites; F10.20 Alcohol dependence, uncomplicated; J45.909 Unspecified asthma, uncomplicated; I10 Essential (primary) hypertension; Z87.891 Personal history of nicotine dependence; Z23 Encounter for immunization
CPT/HCPCS: 12001; 90471; 90715; 99282

== ENCOUNTER 2024-03-10 12:40 | Outpatient (CLI) | payer MEDICARE, SELFPAY ==
--- NOTE | ~2024-03-10 | MM_ITS ---
EXAMINATION: MM screening bea BI w parker HISTORY: Screening mammogram TECHNIQUE: Craniocaudal and mediolateral oblique 3-D tomosynthesis images were obtained and synthetic 2-D images were generated. CAD analysis was submitted and interpreted. COMPARISON: 11/15/2022, 09/11/2021 BREAST PARENCHYMAL COMPOSITION:Dense: The breasts are extremely dense, which lowers the sensitivity o f mammography. FINDINGS: Stable benign calcifications, particularly in the left breast. No suspicious mass, calcific ation, or architectural distortion are identified in either breast to suggest malignancy. There has b een no suspicious interval change. IMPRESSION: No mammographic evidence of malignancy. Recommend routine screening mammography in one year. BI-RADS Category 2: Benign finding(s). Reviewed, dictated and finalized at location . STOS HANDLER
== END 2024-03-10 12:41 | disposition home or self-care (01) ==
LOC: MICIMG 12:40
PROVIDERS: PCP Family Medicine; Visit Provider Obstetrics & Gynecology Gynecology
DX: Z12.31 Encounter for screening mammogram for malignant neoplasm of breast (principal)
CPT/HCPCS: 77063; 77067

== ENCOUNTER 2024-03-23 08:35 | Outpatient (CLI) | payer MEDICARE, SELFPAY ==
--- NOTE | ~2024-03-23 | DEXA_ITS ---
Bone Density Report Name: ERIK SIMMONS Age: 58 Sex: Female Ethnicity: White Date of : 1965 Indication: postmenopausal; screening for osteoporosis; prior fracture; Referring Provider: AMADO, ARIC Study: Bone densitometry was performed. Exam Date: March 23, 2024 Accession number: [id number] Bone Density: Region BMD T-score Z-score Classification AP Spine(L1-L4) 0.866 -1.6 -0.5 Osteopenia Femoral Neck (Right) 0.578 -2.4 -1.3 Osteopenia Total Hip (Right) 0.677 -2.2 -1.4 Osteopenia World Health Organization criteria for BMD impression classify patients as: Normal (T-score at or above -1.0), Osteopenia (T-score between -1.0 and -2.5), or Osteoporosis (T-score at or below -2.5). 10-year Fracture Risk: FRAX not reported because: Prior hip or vertebral fracture Clinical Information Provided by Patient: Have had a previous hip or vertebral fracture Has had a low trauma fracture Has used the following medications: Reclast (i.e. zoledronate) Patient maximum height was 64 No regular weight bearing exercise Drinks caffeinated beverages Onset of menses at age 16 Number of children 2 Impression: The patient has low bone mass, based on the Right Femoral Neck T-score. The patient has risk factors, including: previous fracture. Discussion: INCREASED RISK OF FRACTURE DUE TO HISTORY OF FRACTURE. The patient's previous fracture puts the patient at high risk of a future fracture. In untreated patients, the risk of osteoporotic fracture increases approximately two-fold for each 1.0 SD decrease in T-score. Low bone density is not the only risk factor for fracture; also consider factors such as patient's age, frailty or poor health, risk of falling, risk of injury, previous osteoporotic fracture, family history of osteoporosis, cigarette smoking, low body weight, etc. Not everyone with a low trauma fracture has osteoporosis; osteomalacia and other metabolic bone disorders should also be considered. Patients who have osteoporosis should be evaluated for specific diseases and conditions (secondary causes) that may cause or contribute to bone loss and fracture risk. National Osteoporosis Foundation (NOF) recommends pharmacologic intervention for patients with a prior hip or vertebral fracture regardless of BMD T-score. The patient should follow a healthful lifestyle (good nutrition with adequate calcium and vitamin D, and appropriate weight-bearing exercise). Follow-Up: Consider a repeat BMD and Vertebral Fracture Assessment (VFA) exam in 2 years or sooner if medically necessary, to reassess this patient's status. Reported by: EUGENIA on 03/23/2024 9:07:00 AM. Reviewed, dictated and finalized at location AGlenn ORTIZ
== END 2024-03-23 08:36 | disposition home or self-care (01) ==
PROVIDERS: PCP Family Medicine; Visit Provider Nurse Practitioner Women's Health
DX: M85.89 Other specified disorders of bone density and structure, multiple sites (principal); Z78.0 Asymptomatic menopausal state
CPT/HCPCS: 77080

== ENCOUNTER 2024-08-11 12:49 | Emergency (ER) | payer MEDICARE, SELFPAY ==
[2024-08-11 12:56] VITALS: BP 118/64; PULSE 64; RESP 18; TEMP 37.1; O2SAT 96
--- NOTE | 2024-08-11 12:57 | ED.URI ---
HPI - URI/Sore Throat General Chief Complaint: Upper Respiratory Infection Stated Complaint: Cough Time Seen by Provider: 08/11/24 12:57 Source: patient Mode of arrival: ambulatory Limitations: no limitations History of Present Illness HPI Narrative: Here for cough. She reports a constant cough since Saturday. she reports a history of asthma, but denies any prior exacerbations. She reports using her albuterol every 15-30 minutes with no relief. She reports wheezing. She reports she has not been sleeping well due to wheezing.She denies any fever or recent illness. She otherwise reports only her usual asthma and allergy symptoms today. She denies using any daily controller asthma medication or inhaler. She reports she started Flonase yesterday for allergy symptoms. Related Data Home Medications ?Medication ?Instructions ?Recorded ?Confirmed ?Last Taken ?Type timolol 0.5 %-dorzolamide 2 1 drp ophthalmic (eye) DAILY 09/12/20 07/08/24 09/27/20 History %-latanprost 0.005 % (PF) eye drops nadolol 20 mg tablet 20 mg PO DAILY 05/22/22 07/08/24 Unknown History Allergies Allergy/AdvReac Type Severity Reaction Status Date / Time codeine AdvReac Intermediate Nausea and Verified 08/11/24 12:53 Vomiting Review of Systems Review of Systems: CONSTITUTIONAL: Denies fever, chills, or sweats. EYES: Denies visual changes, redness, or discharge. ENT: Reports rhinorrhea, congestion, and sneezing started Saturday. Denies sore throat or otalgia. CARDIOVASCULAR: Denies chest pain, palpitations, or edema. RESPIRATORY: Reports cough, wheezing, and SOB. GASTROINTESTINAL: Denies abdominal pain, nausea, vomiting, or diarrhea. SKIN: Denies rash or itching. MUSCULOSKELETAL: Denies back pain, joint pain, or myalgia. NEUROLOGIC: Denies headache, numbness, or weakness. PSYCHIATRIC: Denies anxiety or depression. All other systems reviewed are negative, except as documented in HPI. [facility] Past Medical History Medical History Vitamin D deficiency Lumbar radiculopathy, chronic Liver disease due to alcohol Iron deficiency anemia due to chronic blood loss Benign hypertension Alcoholism, chronic Irritable bowel syndrome with constipation Lower abdominal tenderness Epigastric abdominal pain Dysphagia Gas bloat syndrome Colon cancer screening Sacroiliitis Encounter for immunization Hepatic insufficiency Colon cancer screening Cirrhosis, alcoholic Hiatal hernia Chronic anemia Thrombocytopenia Esophageal varices (~07/2019) Status post band ligation in July 2019. Nonbleeding varices on EGD in September 2019. Alcoholism Asthma Anxiety Peripheral neuropathy Restless leg syndrome Upper gastrointestinal hemorrhage (~07/2019) Esophageal varices bleeding, status post band ligation. Hypertension Surgical History Surgical History History of rhinoplasty History of nasal septoplasty History of left hip replacement History of endoscopy (~07/2019) Band ligation of esophageal varices. History of hand surgery ORIF left hand fracture with hardware. History of tonsillectomy Family History Family History Father Family history of cardiovascular disease Hypertension Cancer CHF (congestive heart failure) Alcoholism Heart disease Mother Brain cancer Skin cancer Grandparent Hypertension Depression Grandparent Alcoholism Heart disease Social History Social History Social History: The patient is and lives with her in [place]. 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 She smoked for short period of time many years ago. No illicit substance use. She designates her Gulshan as her surrogate decision maker and wishes to be a full code. Smoking packs per day: 0.25 Smoking cigarettes per day: 5.0 Years smoked: 10 Smoking pack-years: 2.50 Smoking status: Former smoker Tobacco type: cigarettes Second hand tobacco smoke exposure: No Smoking end date: 11/17/13 Additional smoking assessment comments: social smoker Alcohol intake: former Alcohol use details: Alcohol Abuse Substance use: never Substance use type: does not use Do You Feel Safe in your Home?: Yes Lack of Transportation: No Lack of Food: Never True Current Housing: I Have Housing Concerned About Future Housing: No Difficulty Paying Gas/Electric Bills: No Difficulty Paying for Meds: No Currently Unemployed: No Education: Associate Degree Difficulty w/ Childcare or Family Care: No Living arrangements: with family Occupation/Education: occupation 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 Gender identity (if verbalized by the patient): Female Spiritual care concerns: No Agree to blood products: Yes Comments At time of signature, I have reviewed and agree with nursing past medical, surgical, social and family history unless otherwise noted. Please see nursing chart for further information. There is no relevant family history pertinent to the presenting complaint. Exam Narrative: GENERAL: This is a well-nourished, well-developed patient, in some mild respiratory distress with audible wheezing without stethoscope and she was unable to speak in full sentences. HEAD: normocephalic, atraumatic. EYES: Sclera clear/white. EARS: External ears normal without drainage, TMs normal without perforation. Hearing grossly intact. NOSE: External nose normal with no obvious nasal discharge, nares without redness, no rhinorrhea. THROAT: Mucous membranes moist, posterior pharynx clear. NECK: Neck supple, non-tender without lymphadenopathy, masses or thyromegaly. CARDIOVASCULAR: Regular rate and rhythm without murmurs, gallops, or rubs. RESPIRATORY: Breath sounds equal bilaterally with inspiratory and expiratory wheezing in bilateral full mendes. No rales or rhonchi. SKIN: warm, Dry, intact with no suspicious lesions or rash, good texture and turgor. NEURO: awake, alert, and oriented to person, place and time. There were no obvious focal neurologic abnormalities. EXTREMITIES: No joint tenderness, effusion, or edema noted. Course Course Level of Care: Express Care Visit Reevaluation(s) Reevaluation #1: DuoNeb and 60 of prednisone given. 10 minutes after respiratory treatment and prednisone, lung sounds were Clear bilaterally. patient stated she felt improved. Patient was able to speak in full sentences and appeared comfortable in no acute distress. Vital Signs Vital signs: reviewed MDM - URI/Sore Throat MDM Narrative Medical decision making narrative: Patient is aware of diagnosis, understands and agrees to treatment plan. Anticipatory guidance was given. shared decision making was utilized. Reviewed that she will start a daily controller inhaler Symbicort. Reviewed that she will use SMART therapy and add Symbicort p.r.n. She will continue her albuterol every 4 hours as needed. She will start a daily antihistamine, such as Zyrtec. She will continue daily Flonase. She will follow up with primary. Discussed physical exam findings with patient and reviewed prescriptions.? Patient agrees to follow-up as directed and is aware of reasons to seek care at the emergency department. We reviewed that for any return of symptoms such as shortness of breath not relieved by albuterol or any other difficulty breathing she should proceed to the emergency room for further evaluation and treatment. Discharge instructions?were reviewed with the patient, as well as provided in writing per nursing staff. All questions have been answered, and the patient denies any further questions related to discharge or discharge plan. Discharge Plan Discharge Clinical Impression: Asthma exacerbation Qualifiers: Asthma severity: unspecified severity Asthma persistence: unspecified Qualified Code(s): J45.901 - Unspecified asthma with (acute) exacerbation Allergic rhinitis Qualifiers: Allergic rhinitis trigger: unspecified Allergic rhinitis seasonality: seasonal Qualified Code(s): J30.2 - Other seasonal allergic rhinitis Patient Disposition: Home Condition: Stable Instructions: Antibiotic Form, Asthma (DC), Upper Respiratory Infection (ED), Allergies (ED) Additional Instructions: Take medications as prescribed and follow printed instructions. Use albuterol every 4 hours as needed for the next couple of days. Start prednisone tomorrow as you received 1st dose here today. Start daily Symbicort as daily controller and continue to use 2 puffs as needed for smart therapy. Continue daily Flonase and daily antihistamine such as Zyrtec. May take over the counter acetaminophen and/or ibuprofen by mouth as needed/directed for pain/fever. ? Push fluids and soft diet; advance as tolerated.? Nutrition is important - eat small frequent meals. Call your Primary Care Doctor today to make a follow-up appointment. Go to the ER for any worsening symptoms or concerns Patient Language: Tamazight Prescriptions: New prednisone 20 mg tablet 60 mg PO DAILY 4 Days Qty: 12 0RF Rx Instructions: Start 08/12/24 budesonide-formoterol 80-4.5 mcg/actuation HFA aerosol inhaler 2 puff inhalation Q12H Qty: 10.2 0RF Rx Instructions: Continue until you follow up with PCP. No Action wynevsq-vkyyocuwpw-gmbvhfy(PF) 0.5-2-0.005 % drops 1 drp ophthalmic (eye) DAILY folic acid 400 mcg tablet 0.4 mg PO DAILY Qty: 90 3RF mupirocin 2 % ointment 1 applic topical BID Qty: 22 1RF Rx Instructions: Intranasal furosemide 40 mg tablet See Rx Instructions .ROUTE .COMPLEX Qty: 60 5RF Dose Instruction: TAKE 2 TABLETS BY MOUTH EVERY MORNING Rx Instructions: TAKE 2 TABLETS BY MOUTH EVERY MORNING gabapentin 300 mg capsule 600 mg PO BID Qty: 360 1RF nadolol 20 mg tablet 20 mg PO DAILY diclofenac sodium [Arthritis Pain (diclofenac)] 1 % gel 2 g topical QID PRN (Reason: Pain) Qty: 100 0RF Rx Instructions: apply to wrist prn pain mecobalamin (vitamin B12) 1,000 mcg tablet,disintegrating 1,000 mcg sublingual DAILY Qty: 90 1RF Rx Instructions: place tablet under tongue and allow to dissolve for at least30 secs before swallowing pantoprazole 40 mg tablet,delayed release (DR/EC) See Rx Instructions .ROUTE .COMPLEX Qty: 180 3RF Dose Instruction: TAKE 1 TABLET BY MOUTH EVERY 12 HOURS Rx Instructions: TAKE 1 TABLET BY MOUTH EVERY 12 HOURS (DME) Hepatitis B See Rx Instructions .Route .MEDSUPPLY Qty: 1 0RF Rx Instructions: As directed for 3rd injection ipratropium bromide 21 mcg (0.03 %) spray,non-aerosol 2 spray intranasal .qd-tid Qty: 30 0RF Rx Instructions: administer into each nostril. Aim back/up/out spironolactone 100 mg tablet See Rx Instructions .ROUTE .COMPLEX Qty: 60 2RF Dose Instruction: TAKE 2 TABLETS BY MOUTH DAILY Rx Instructions: TAKE 2 TABLETS BY MOUTH DAILY escitalopram oxalate [Lexapro] 10 mg tablet 10 mg PO DAILY Qty: 90 3RF polysaccharide iron complex 150 mg iron capsule 150 mg PO DAILY Qty: 100 3RF albuterol sulfate [Ventolin HFA] 90 mcg/actuation HFA aerosol inhaler 2 puff INHALATION Q4-6H PRN (Reason: Shortness Of Breath Or Wheezing) Qty: 3 3RF Follow-up/Referrals: Trish Hatch MD [Primary Care Provider] - Time of Disposition: 13:55
[2024-08-11] MEDS: IPRATROPIUM 0.5 MG/ALBUTEROL SULFATE 2.5 MG AMPUL.NEB 3 ML INHALATION (13:11)
[2024-08-11] MEDS: predniSONE 20 MG TABLET 60 MG PO (13:12)
[2024-08-11 13:17] VITALS: PULSE 64; RESP 20; O2SAT 96
[2024-08-11 13:32] VITALS: PULSE 92; RESP 20; O2SAT 97
--- OUTSIDE RECORDS SUMMARY | 2024-08-11 14:18 | XMS_ITS | Clinical Summary ---
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 Gender Identity Not on file Sexual Orientation Not on file Plan of Treatment Health Maintenance Due Date Last Done Comments TdaP Immunization 1965 Hepatitis B Immunization (1 of 3 - 19+ 3-dose series) 07/05/1986 Pap Smear 07/05/1988 Cervical Cancer Screening (CCS) 07/05/1997 HPV/Cotest 07/05/1997 Colonoscopy 07/05/2012 Colorectal Cancer Screening 07/05/2012 Cologuard 07/05/2017 Immunochemical Fecal Occult Blood 07/05/2017 Mammogram 07/05/2017 Pneumococcal Immunization (5 0+ years) (1 of 1 - PCV) 07/05/2017 Zoster Immunization (1 of 2) 07/05/2017 Influenza Immunization (#1) 2023 SARS-COV-2 Immunization ( season) 2023 Respiratory Syncytial Virus (RSV) Immunization (Adult) (1 - 1-dose 75+ series) 07/05/2042 Hepatitis C Virus (HCV) Screening Completed 015 Meningococcal Immunization (ACWY) Aged Out No longer eligible based on patient's age to complete this topic Pneumococcal Immunization Combined Aged Out No longer eligible based on patient's age to complete this topic Rotavirus Immunization Aged Out No lo nger eligible based on patient's age to complete this topic Procedures Procedure Name Priority Date/Time Associated Diagnosis Comments HEPATITIS PANEL ACUTE (AHP) Routine 01/06/2015 from Last 3 Months or Most Recently Relevant to Health Maintenance Results * HEPATITIS PANEL ACUTE (AHP) (01/06/2015) Blood specimen (specimen) Zhen Jean MD HEMATOLOGY ORDERABLES Final R esult from Last 3 Months or Most Recently Relevant to Health Maintenance
--- OUTSIDE RECORDS SUMMARY | 2024-08-11 14:18 | XMS_ITS | Encounter Summary ---
Author Organization [facility] Health Address [address] [facility] [place] [address] Care Team Providers Care Cage Loader Name Role Phone Trish Hatch MD Primary Care Provider Encounter Details Date Type Department Care Team (Late st Contact Info) Description 04/09/2024 Lab Requisition [facility] - DermPath Lab [address] [facility] [place] [address] Teresa Hunt MD [address] [place] [address] [place] [address] Neoplasm of uncertain behavior of skin Social History Tobacco Use Types Packs/Day Years Used Date Smoking Tobacco: Former Cigarettes Q uit: 04/30/2011 Smokeless Tobacco: Never Alcohol Use Standard Drinks/Week Comments Not 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 Answer Date of Assessment Author No 02/21/2024 11:18 AM Bethany Alcaraz RN * Is person blind or have serious difficulty seeing? Answer Date of Assessment Author No 02/21/2024 11:18 AM Bethany Alcaraz RN * Does person have serious difficulty walking/climbing stairs? Answer Date of Assessment Author No 02/21/2024 11:18 AM Bethany Alcaraz RN * Does person have difficulty dressing/bathing? Answer Date of Assessment Author No 02/21/2024 11:18 AM Bethany Alcaraz RN * Does person have difficulty doing errands alone? Answer Date of Assessment Author No 02/21/2024 11:18 AM Bethany Alcaraz RN documented as of this encounter Mental Status * Does person have difficulty concentrating/remembering/making decisions? Answer Entry Date Author No 02/21/2024 11:18 AM Bethany Alcaraz RN documented in this encounter Plan of Treatment Upcoming Encounters Date Type Department Care Team (Late st Contact Info) Description 08/25/2024 1:00 PM CDT Office Visit [facility] - ENT [address] [place] [phone] Anibal Hdz MD [address] [place] [address] [place] [address] 11/10/2024 8:40 AM CDT Appointment [facility] [address] [place] [address] Juan Miranda MD [address] [place] [phone] 11/10/2024 9:30 AM CDT Office Visit [facility] - GI [address] [place] [phone] Juan Miranda MD [address] [place] [address] [place] [phone] documented as of this encounter Goals Goal Patient Goal Type Associated Problems Recent Progress Patient-Stated? Author Medication Management General On track( 024 11:46 AM CDT) Isabel Amin RN Note: Expected end date: ongoing Interventions: Take all medications as prescribed documented as of this encounter Procedures Procedure Name Priority Date/Time Associated Diagnosis Comments DERMATOPATHOLOGY Routine 04/09/2024 12:0 0 AM LANDSCAPE CONTRACTOR Neoplasm of uncertain behavior of skin documented in this encounter Results * DERMATOPATHOLOGY (04/09/2024 12:00 AM LANDSCAPE CONTRACTOR) Case Report Dermatopathology Report Case: [id number] Authorizing Provider: Teresa Hunt MD Collected: 04/09/2024 12:00 AM Ordering Location: [facility] - Received: 04/10/2024 12:53 PM DermPath Lab Pathologist: Doc Lima MD Specimen: Skin, right mid jainism 1:16 PM LANDSCAPE CONTRACTOR DERMATOPATHOLOGY LABORATORY Final Diagnosis Specimen A. SKIN, right mid jainism: ACTINIC KERATOSIS, PIGMENTED (L57.0) 1:16 PM [facility] DERMATOPATHOLOGY LABORATORY Clinical History Macular SK vs lentigo maligna vs lentigo 1:16 PM [facility] DERMATOPATHOLOGY LABORATORY Gross Description Specimen A: Received is one formalin filled container labeled with the patient's name and designated right mid jainism. The specimen consists of a shave biopsy measuring 7x5x2 mm. Jar 0. 1:16 PM [facility] DERMATOPATHOLOGY LABORATORY Microscopic Description Specimen A. SKIN, right mid jainism: There is alternating orthokeratosis and parakeratosis. Along the undersurface of the epidermis, there are buds of atypical keratinocytes in a disorderly arrangement. There is prominent pigmentation in some of the keratinocytes. 1:16 PM [facility] DERMATOPATHOLOGY LABORATORY Disclaimer An external and internal positive and negative controls are appropriate for the histochemical, immunohistochemical and immunofluorescence stain(s) in this case (if any), except where stated explicitly. The performance characteristics of the stain(s) cited in this report were developed and its performance characteristic determined by the Dermatopathology Laboratory at [facility], directed by Dr. Loren Lima. These tests need not be, and therefore are not, approved by the [place] Food and Drug Administration. The tests are used for clinical purposes. Billing Codes Specimen Charges Stain Charges 54119 1 4 1:16 PM LANDSCAPE CONTRACTOR DERMATOPATHOLOGY LABORATORY Embedded Images 4 1:16 PM LANDSCAPE CONTRACTOR DERMATOPATHOLOGY LABORATORY Pathology/Cytolog y TISSUE SPECIMEN FROM SKIN / Unknown 04/09/2024 04/10/2024 12:53 PM LANDSCAPE CONTRACTOR us Teresa Hunt MD LAB - PATHOLOGY/CYTOLOGY ORDERAB LES Final Result DERMATOPATHOLOGY LABORATORY [facility] - Department of Dermatology [facility] [address] [place] [address], [address] [phone] documented in this encounter Visit Diagnoses Diagnosis Neoplasm of uncertain behavior of skin documented in this encounter Care Teams Cage Loader Relationship Specialty Start Date End Date Trish Hatch MD [address] [place] [address] PCP - General Family Medicine 04/08/23 documented as of this encounter
--- OUTSIDE RECORDS SUMMARY | 2024-08-11 14:18 | XMS_ITS | Encounter Summary ---
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 Answer Date of Assessment Author No 02/21/2024 11:18 AM CDT Bethany Vila RN * Is person blind or have serious difficulty seeing? Answer Date of Assessment Author No 02/21/2024 11:18 AM CDT Bethany Vila RN * Does person have serious difficulty walking/climbing stairs? Answer Date of Assessment Author No 02/21/2024 11:18 AM CDT Bethany Vila RN * Does person have difficulty dressing/bathing? Answer Date of Assessment Author No 02/21/2024 11:18 AM CDT Bethany Vila RN * Does person have difficulty doing errands alone? Answer Date of Assessment Author No 02/21/2024 11:18 AM LEXIST Bethany Vila RN documented as of this encounter Mental Status * Does person have difficulty concentrating/remembering/making decisions? Answer Entry Date Author No 02/21/2024 11:18 AM Bethany Alcaraz RN documented in this encounter Miscellaneous Notes * Telephone Encounter - Roxana Aguilar RN - 08/11/2024 11:22 AM CDT Patient called triage wanting to ask Dr. Miranda if she will be able to take over prescribing Pantoprazole. Dr. Jolly is her previous GI doctor but haven't seen him for more than a year. Please call Na at Routed to Dr. Miranda & Bertha RN documented in this encounter Plan of Treatment Upcoming Encounters Date Type Department Care Team (Late st Contact Info) Description 08/25/2024 1:00 PM CDT Office Visit [facility] - ENT [address] [place] [phone] Anibal Hdz MD [address] [place] [address] [place] [address] 11/10/2024 8:40 AM CDT Appointment [facility] [address] [place] [address] Juan Miranda MD [address] [place] [phone] 11/10/2024 9:30 AM CDT Office Visit [facility] - GI [address] [facility] [place] [phone] Juan Miranda MD [address] [place] [phone] documented as of this encounter Goals Goal Patient Goal Type Associated Problems Recent Progress Patient-Stated? Author Medication Management General On track( 024 11:46 AM CDT) Isabel Amin, RN Note: Expected end date: ongoing Interventions: Take all medications as prescribed documented as of this encounter Visit Diagnoses Not on filedocumented in this encounter Care Teams Tiger Machine Operator Relationship Specialty Start Date End Date Trish Hatch MD [address] [place] [address] PCP - General Family Medicine 04/08/23 documented as of this encounter
--- OUTSIDE RECORDS SUMMARY | 2024-08-11 14:18 | XMS_ITS | Clinical Summary ---
Author Organization [facility] Address [address] [place] [address] Care Team Providers Care Substance Abuse Specialist Name Role Phone Trish Hatch MD Primary Care Provider [phone] Source Comments [facility],non-owned Affiliates and Associated Physician Practices is amultiple site organization consisting of ambulatory clinics and hospital sitesin [place], [place], [place] and [place]. This disclosure is being madepursuant to the Care Everywhere program and may not contain all information available regarding this patient. Last updated 18.[facility] Allergies No known active allergies Medications * Be aware that medications may not be up to date on this document. Alwaysverify current medications with the patient. folic acid 400 MCG tablet Take 1 (one) tablet by mouth once daily 07/09/19 21 Active latanoprost (XALATAN) 0.005 % ophthalmic solution Instill 1 (one) drop into both eyes at bedtime 03/30/20 21 Active pantoprazole EC (PROTONIX) 40 MG tablet Take 1 (one) tablet by mouth 2 times daily 02/14/20 21 Active cyanocobalamin (VITAMIN B-12) 1000 MCG tablet Take 1 (one) tablet by mouth once daily Active thiamine (VITAMIN B-1) 100 MG tablet Take 1 (one) tablet by mouth once daily 30 tablet 05/17/19 22 Active furosemide (LASIX) 40 MG tablet Take 2 (two) tablets by mouth once daily 08/01/19 22 Active spironolactone (ALDACTONE) 100 MG tablet Take 2 (two) tablets by mouth once daily as needed 08/01/19 22 Active iron polysaccharides (NIFEREX 150) 150 MG capsule Take 1 (one) capsule by mouth once daily 07/17/19 22 Active ALBUTEROL IN Inhale 2 puffs by mouth every 6 hours as needed Active escitalopram (Lexapro) 10 MG tablet Take 1 (one) tablet by mouth once daily 01/05/20 23 Active gabapentin (Neurontin) 300 MG capsule TAKE 1 CAPSULE BY MOUTH EVERY DAY AT BEDTIME 06/18/19 24 Active ipratropium (Atrovent) 0.03 % nasal spray [place] 1 spray into each nostril once daily as needed 12/18/19 24 Active diclofenac sodium (Voltaren) 1 % gel APPLY 2 GRAMS TOPICALLY TO WRIST FOUR TIMES DAILY NEEDED FOR PAIN 12/04/19 24 Active nadolol (Corgard) 20 MG tablet Take 1 (one) tablet by mouth once daily 30 tablet 11 01/30/20 24 025 Active Probiotic Product (probiotic daily) capsule Take 1 (one) capsule by mouth once daily Active oxyCODONE, immediate release, (Roxicodone) 5 MG tabletIndications:P ost-op pain Take 1 (one) tablet by mouth every 6 hours as needed for Pain 15 tablet 05/15/19 25 Active acetaminophen (Tylenol) 500 MG tablet Take 1 (one) tablet by mouth every 6 hours as needed for Fever or Pain Maximum allowable Acetaminophen amount = 4 Grams (4000 mg) / 24 hours. 30 tablet 05/15/19 25 Active sodium chloride ([place]; Baby [place]) 0.65 % nasal spray [place] 2 (two) sprays into each nostril 4 times daily 30 mL 05/15/19 25 Active Hepatitis B, CpG-Adjuvanted Vaccine, Adult (Heplisav-B) 20 MCG/0.5ML (HepB-Cpg) Day 0 inject 0.5mL IM and then inject 0.5mL IM 4 weeks from dose 1 0.5 mL 1 07/16/19 25 Active Active Problems Problem Noted Date Diagnosed Date Iliopsoas bursitis of left hip 02/20/2023 Status post left hip replacement 02/20/2023 Alcoholic cirrhosis of liver with ascites 2021 Alcohol use disorder, severe, in sustained remis regina 08/12/2021 Esophageal varices in alcoholic cirrhosis 2021 Closed fracture of left hip 04/29/2021 Anemia 03/25/2021 Fall 03/25/2021 Closed fracture of neck of left femur 03/25/2021 Closed displaced fracture of styloid process of left ulna 03/25/2021 Closed displaced fracture of styloid process of right radius 03/25/2021 Hypertension 09/16/2013 02/20/2023 Fracture of unspecified part of neck of left femur, initial encounter for closed fracture Encounters Date Type Department Care Team Description 08/11/2024 Telephone [facility] - GI [address] [place] [phone] Roxana Aguilar paper sample clerk Issue 07/09/2024 Telephone [facility] - Nephrology [address] [place] [phone] Terra Ford RN Medication Issue 07/02/2024 Refill [facility] [address] [place] [phone] Sanjay Espinosa, TENNIS COACH REFILL 07/02/2024 Telephone [facility] [address] [place] [phone] Sanjay Espinosa, paper sample clerk Issue 05/22/2024 1:15 PM PHOTOSTATIC COPY MAKER Office Visit [facility] - ENT [address] [place] [phone] Anibal Hdz MD Nasal valve collapse (Primary Dx) 05/22/2024 Travel 05/15/2024 1:23 PM PHOTOSTATIC COPY MAKER Anesthesia Event [facility] [address] [place] [phone] Daniel Le MD Keeven, Grace C, TIME MOTION ANALYST-RUBBER BLOCK LAYER 05/15/2024 12:28 PM PHOTOSTATIC COPY MAKER - 05/15/2024 3:43 PM PHOTOSTATIC COPY MAKER Surgery [facility] [address] [place] [phone] Anibal Hdz MD OPEN SEPTORHINOPLASTY, AURICULAR CARTILAGE GRAFT, BILATERAL INFERIOR TURBINATE REDUCTION 05/15/2024 10:37 AM PHOTOSTATIC COPY MAKER - 05/15/2024 6:14 PM PHOTOSTATIC COPY MAKER Hospital Encounter [facility] [address] [place] [phone] Anibal Hzd MD Surgery General Discharge Disposition: Home or Self Care from Last 3 Months Immunizations Immunization Administration Dates Next Due [employer] primary monoval ent 12+ yr 0.3mL Purple cap 04/30/2021 FLU VACCINE TRI IIV3 SPLIT I M (FLUVIRIN) 01/11/2021 HEP A VACCINE, ADULT 08/15/2021,01/03/2021 HEP B VACCINE, ADULT 3 DOSE 11/04/2022,0 10/05/2022,08/14/2021,2020 INFLUENZA VACCINE 01/11/2021 INFLUENZA VACCINE, CELL CULT URE, QUADR. (FLUCELVAX QUADRIVALENT; 6MO+) (CCIIV4) 01/28/2019 INFLUENZA VACCINE, CELL CULT URE, QUADR. (FLUCELVAX QUADRIVALENT; 6MO+), 0.5 ML (CCIIV4) 01/23/2018 INFLUENZA VACCINE, QUADR. (F LUZONE; FLULAVAL; FLUARIX; AFLURIA QUADRIVALENT; 6MO+), 0.5 ML (IIV4) 12/26/2022,12/01/2021,01/13/2020 TDAP, HISTORIC VACCINE 08/30/2021 Zoster Hzv Vacc Recombinant Inj Im 01/03/2022, Family History Medical History Relation Name Comments Heart Failure Father Alcohol abuse Paternal Aunt Cirrhosis Paternal Aunt Alcohol Relation Name Status Comments Father Paternal Aunt Alive Social History Tobacco Use Types Packs/Day Years [...] on file Legal Sex Female 6:27 PM PHOTOSTATIC COPY MAKER Gender Identity Not on file Sexual Orientation Not on file Last Filed Vital Signs Vital Sign Reading Time Taken Comments Blood Pressure 105/71 05/22/2024 1:08 PM PHOTOSTATIC COPY MAKER Pulse 58 05/22/2024 1:08 PM PHOTOSTATIC COPY MAKER Temperature 37 C (98.6 F) 05/15/2024 5:00 PM PHOTOSTATIC COPY MAKER Respiratory Rate 11 05/15/2024 5:30 PM PHOTOSTATIC COPY MAKER Oxygen Saturation 96% 05/15/2024 5:30 PM PHOTOSTATIC COPY MAKER Inhaled Oxygen Concentration - - Weight 59.9 kg (132 lb) 05/22/2024 1:08 PM PHOTOSTATIC COPY MAKER Height 162.6 cm (5' 4 ) 05/22/2024 1:08 PM PHOTOSTATIC COPY MAKER Body Mass Index 22.66 05/22/2024 1:08 PM PHOTOSTATIC COPY MAKER Plan of Treatment Upcoming Encounters Date Type Department Care Team (Late st Contact Info) Description 08/25/2024 1:00 PM CDT Office [facility] E[facility] [address] [place] [phone] Anibal Hdz MD [address] [place] [address] [place] [address] 11/10/2024 8:40 AM CDT Appointment [facility] CAT SCAN [address] [place] [phone] Juan Miranda MD [address] [place] [phone] 11/10/2024 9:30 AM CDT Office Visit [facility] - GI [address] [place] [phone] Juan Miranda MD [address] [place] [phone] Health Maintenance Due Date Last Done Comments COLOGUARD (AGES 45-75) - COLON CA SCREENING 1967 COLON MONITORING 1967 COLONOSCOPY - COLON CA SCREENING 1967 CT COLONOGRAPHY - COLON CA SCREENING 1967 Colorectal Cancer Screening 1967 FIT - COLON CA SCREENING 1967 FLEX SIG - COLON CA SCREENING 1967 LIPID TESTING 1967 MAMMOGRAM 1967 PAP SMEAR 1967 HIV SCREENING 07/05/1982 PNEUMOCOCCAL VACCINE 50+ (1 of 2 - PCV) 07/05/1986 COVID-19 VACCINE (2 - season) 2023 04/30/2021 DEPRESSION SCREENING 04/22/2024 01/22/2024 MEDICARE AWV CALENDAR YEAR 2024 INFLUENZA VACCINE (Season Ended) 2024 12/26/2022, 12/01/2021, 01/11/2021, Additional history exists DTAP/TDAP/TD VACCINES (2 - Td or Tdap) 08/31/2031 08/30/2021 ZOSTER VACCINE Completed 01/03/2022, 10/27/2021 HEPATITIS C SCREENING Completed 04/03/2022 HEPATITIS B VACCINE Completed 11/04/2022, 10/05/2022, 08/14/2021, Additional history exists HIB VACCINE Aged Out No longer eligi ble based on patient's age to complete this topic HPV VACCINE Aged Out No longer eligi ble based on patient's age to complete this topic MENINGOCOCCAL (Group B) VACCINE SHARED DECISION-MAKING Aged Out No longer eligible based on patient's age to complete this topic MENINGOCOCCAL GROUPS A/C/Y/W VACCINE Aged Out No longer eligible based on patient's age to complete this topic Goals Goal Patient Goal Type Associated Problems Recent Progress Patient-Stated? Author Medication Management General On track( 024 11:46 AM CDT) No Isabel Lopez, RN Note: Expected end date: ongoing Interventions: Take all medications as prescribed Medical Devices Implanted Type Area Event Decorator And Designer Device Identifier Shelf Expiration Date Model / Serial / Lot Screw 6.5mm 7.9mm 2.9mm 85mm P/T Rvrs Implanted:Qty: 3 on 03/25/2021 by Chad Vargas MD at [facility] Left: Leg S[employer]sa [id number] / / Shell Actb 52mm Hip 3 Hl Poly R3 Std Implanted:Qty: 1 on 05/08/2021 by Edson Robbins [place] [facility] [facility]: Hip [employer] 11/22/2030 [id number] / / [id number] Screw 6.5mm 40mm Sphrcl Head Hip Actb Implanted:Qty: 1 on 05/08/2021 by Edson Robbins [place] [facility] [place] [facility]: Hip [employer] 07/05/2030 [id number] / / [id number] Dual Mobility Liner Implanted:Qty: 1 on 05/08/2021 by Edson Robbins MD at [facility] [place] [facility] Left: Hip [employer] 09/25/2030 [id number] / / [id number] Dual Mobility Insert Implanted:Qty: 1 on 05/08/2021 by Edson Robbins MD at [facility] [place] Left: Hip [employer] 09/13/2030 [id number] / / [id number] Stem Standard With Ti/Valle Implanted:Qty: 1 on 05/08/2021 by Edson Robbins MD at [facility] Left: Hip [employer] 12/05/2027 [id number] / / [id number] Femoral Head Implanted:Qty: 1 on 05/08/2021 by Edson Robbins MD at [facility] [place] [facility] Left: Hip [employer] 12/04/2030 [id number] / / [id number] Redapt Femoral Standard Offset Implanted:Qty: 1 on 06/02/2021 by Edson Robbins MD at [facility] [place] [facility] Left: Hip [employer] 09/22/2029 [id number] / / [id number] Femoral Head Implanted:Qty: 1 on 06/02/2021 by Edson Robbins MD at [facility] [place] [facility] Left: Hip [employer] 11/29/2029 [id number] / / [id number] Dual Mobility Insert Implanted:Qty: 1 on 06/02/2021 by Edson Robbins MD at [facility] [place] [facility] Left: Hip [employer] 03/06/2030 [id number] / / [id number] Cable Orth Cocr 2mm 75mm Troch Clp Implanted:Qty: 1 on 06/02/2021 by Edson Robbins MD at [facility] [place] [facility] Left: Hip [employer] 07/27/2030 [id number] / / [id number] Cable Orth Cocr 2mm 75mm Troch Clp Implanted:Qty: 1 on 06/02/2021 by Edson Robbins MD at [facility] [place] [facility] Left: Hip [employer] 11/06/2028 [id number] / / [id number] Redapt Femoral Modular Sleeve Implanted:Qty: 1 on 06/02/2021 by Edson Robbins MD at [facility] [place] [facility] Left: Hip [employer] 06/29/2030 [id number] / / [id number] Splnt Nsl Precut Ster - St Implanted:Qty: 1 on 05/15/2024 by Anibal Hdz MD at [facility] N/A: Nose [employer] 08/20/[id number] / / [id number] Explanted Type Area Event Decorator And Designer Device Identifier Shelf Expiration Date Model / Serial / Lot Screw 6.5mm 7.9mm 2.9mm 80mm P/T Rvrs. Explanted:Qty: 1 on 03/25/2021 by Chad Vargas MD at [facility] Left: Leg Synthe[employer] [id number] / / Procedures Procedure Name Priority Date/Time Associated Diagnosis Comments ENDOTRACHEAL TUBE NOTE Routine 05/15/2024 1:52 PM PHOTOSTATIC COPY MAKER [place] RECONSTR NOSE+CHRISTY SEPTAL REPAIR 05/15/2024 1:00 PM PHOTOSTATIC COPY MAKER Nasal valve blockage Nasal obstruction Special Needs Microdebrider 05/07 BC BASIC METABOLIC PANEL (CALCIUM TOTAL) STAT 05/15/2024 11:28 AM PHOTOSTATIC COPY MAKER Alcohol use disorder, severe, in sustained remission PT-INR [facility] STAT 05/15/2024 11:28 AM PHOTOSTATIC COPY MAKER Alcohol use disorder, severe, in sustained remission CBC W/O DIFFERENTIAL STAT 05/15/2024 11:28 AM PHOTOSTATIC COPY MAKER Alcohol use disorder, severe, in sustained remission TEG 6 GLOBAL HEMOSTASIS STAT 05/15/2024 11:28 AM PHOTOSTATIC COPY MAKER Alcohol use disorder, severe, in sustained remission HEPATITIS C ANTIBODY Routine 04/03/2022 2:48 PM PHOTOSTATIC COPY MAKER Alcohol use disorder, severe, in sustained remission Encounter for screening for other viral diseases from Last 3 Months or Most Recently Relevant to Health Maintenance Results * ETT LINE PERFORMABLE (05/15/2024 1:52 PM PHOTOSTATIC COPY MAKER) Narrative Huyen Gilliam APRN-CRNA - 05/15/2024 1:52 PM PHOTOSTATIC COPY MAKER Huyen Gilliam APRN-CRNA 05/15/2024 1:53 PM Endotracheal Tube Placement: Patient Location: OR. Intubation Event Date/Time: 05/15/2024 1:35 PM Procedure: intubation (87581) Procedure Section: Sedation: under general anesthesia. Indications for Airway Management: anesthesia Induction: standard IV Patient Position: sniffing Mask Ventilation: easy. Blade Type: Wong Blade Size: 3 Laryngoscopy View: grade 1 (full cords) Intubation Adjuncts: stylet Tube: endotracheal tube Placement: oral Tube type: cuff - inflated Tube Size (MM): 6.5 Depth of Insertion (CM): 20 Measured From: lips Cuff Inflated With: air Number of Attempts: 1. Placement Verified By: bilateral breath sounds and CO2 monitor CXR Findings: ETT in proper place. Tube secured with: adhesive tape. Dentition unchanged? Yes Difficult Airway? No. Procedure Start Time: 05/15/2024 1:35 PM. Staff Section Anesthesia Provider: Huyen Gilliam APRN-VESSEL CREW MEMBER, Performed the procedure Provider #1: Daniel Le MD. Daniel Le MD GENERAL ANESTHESIA ORDERABLES Final Result * TEG 6 GLOBAL HEMOSTASIS (05/15/2024 11:28 AM PHOTOSTATIC COPY MAKER) Citrated Kaolin R (Reaction Time) 8.3 4.6 - 9.1 min 05/15/2024 12:[address] [facility] Comment:CK R decreased by CK H R is above normal range. Consider presence of Heparin. Citrated Kaolin K (Clot Kinetics) 1.5 0.8 - 2.1 min 05/15/2024 12:[address] [facility] Citrated Kaolin Angle 70.7 63.0 - 78.0 deg 05/15/2024 12:[address] [facility] Citrated Kaolin MA (Max Amplitude) 58.3 52.0 - 69.0 mm 05/15/2024 12:[address] [facility] Citrated Kaolin w/Heparinase R (Reaction Time) 6.4 4.3 - 8.3 min 05/15/2024 12:[address] [facility] Citrated Functional Fibrinogen MA (Max Amplitude) 20.3 15.0 - 32.0 mm 05/15/2024 12:[address] [facility] Citrated Functional Fibrinogen FLEV 370.4 278.0 - 581.0 mg/dL 05/15/2024 12:[address] [facility] Citrated RapidTEG MA (Max Amplitude) 61.0 52.0 - 69.0 mm 05/15/2024 12:[address] [facility] Blood BLOOD SPECIMEN / Unknown Venipuncture / Unknown 05/15/2024 11:28 AM PHOTOSTATIC COPY MAKER 05/15/2024 11:34 AM [facility] us Daniel Le MD LAB - HEMATOLOGY ORDERABLES Fi nal Result [facility] [address] [place] [address], [facility] [phone] * (ABNORMAL) PT-INR [facility] (05/15/2024 11:28 AM PHOTOSTATIC COPY MAKER) PT 15.9(H) 12.1 - 14.8 Seconds 05/15/2024 1:[address] [facility] INR 1.3 See Comment 05/15/2024 1:[address] [facility] Comment:The suggested therap eutic range for standard coumadin (warfarin) therapy is an INR of 2.0-3.0. For high-risk patients (Mechanical Mitral Valve Prosthesis, etc.), the suggested prophylactic therapeutic range is an INR of 2.5-3.5. Blood BLOOD SPECIMEN / Unknown Venipuncture / Unknown 05/15/2024 11:28 AM PHOTOSTATIC COPY MAKER 05/15/2024 11:33 AM [facility] us Daniel Le MD LAB - COAGULATION ORDERABLES F inal Result [address] [phone] [phone] * (ABNORMAL) CBC W/O DIFFERENTIAL (05/15/2024 11:28 AM PHOTOSTATIC COPY MAKER) WBC 5.0 4.0 - 10.7 x10E9/L 05/15/2024 12:[address] [facility] RBC Count 3.86(L) 3.90 - 5.20 x10E12/L 05/15/2024 12:[address] [facility] Hemoglobin 12.3 11.9 - 15.8 g/dL 05/15/2024 12:[address] [facility] Hematocrit 35.3 34.8 - 46.1 % 05/15/2024 12:[address] [facility] MCV 91.5 80.0 - 98.0 fL 05/15/2024 12:[address] [facility] MCH 31.9 26.7 - 33.6 pg 05/15/2024 12:[address] [facility] MCHC 34.8 31.7 - 36.3 g/dL 05/15/2024 12:[address] [facility] RDW-CV 14.2 11.3 - 14.8 % 05/15/2024 12:[address] [facility] Platelet Count 103(L) 150 - 420 x10E9/L 05/15/2024 12:[address] [facility] MPV 10.6 7.8 - 11.4 fL 05/15/2024 12:[address] [facility] Blood BLOOD SPECIMEN / Unknown Venipuncture / Unknown 05/15/2024 11:28 AM PHOTOSTATIC COPY MAKER 05/15/2024 11:54 AM PHOTOSTATIC COPY MAKER us Daniel Le MD LAB - HEMATOLOGY ORDERABLES Fi nal Result [facility] [address] [place] [phone], [facility] [phone] * (ABNORMAL) BASIC METABOLIC PANEL (CALCIUM TOTAL) (05/15/2024 11:28 AM PHOTOSTATIC COPY MAKER) BUN 12 7 - 26 mg/dL 05/15/2024 1:[address] [facility] Creatinine 0.61 0.56 - 0.96 mg/dL 05/15/2024 1:[address] [facility] Sodium 144 136 - 145 mmol/L 05/15/2024 1:[address] [facility] Potassium 2.8(L) 3.5 - 4.5 mmol/L 05/15/2024 1:[address] [facility] Chloride 103 98 - 107 mmol/L 05/15/2024 1:[address] [facility] CO2 31(H) 22 - 29 mmol/L 05/15/2024 1:[address] [facility] Glucose 88 70 - 99 mg/dL 05/15/2024 1:[address] [facility] Calcium 8.6 8.4 - 10.2 mg/dL 05/15/2024 1:[address] [facility] Anion Gap 10 6 - 16 05/15/2024 1:[address] [facility] BUN/Creatinine Ratio 20 7 - 23 05/15/2024 1:[address] [facility] Osmolality Calculated 297(H) 275 - 295 mOsm/kg 05/15/2024 1:[address] [facility] eGFR by CKD-EPI >90 >=90 mL/min/1.7 3 m2 05/15/2024 1:09 PM PHOTOSTATIC COPY MAKER [facility] Blood BLOOD SPECIMEN / Unknown Venipuncture / Unknown 05/15/2024 11:28 AM PHOTOSTATIC COPY MAKER 05/15/2024 12:43 PM PHOTOSTATIC COPY MAKER Daniel Le MD LAB - CHEMISTRY ORDERABLES Fin al Result Performing Organization Address [facility]/ZIP Co de Phone Number [address] [phone], [facility] [phone] * HEPATITIS C ANTIBODY (04/03/2022 2:48 PM PHOTOSTATIC COPY MAKER) Hepatitis C Antibody Non-react reese Non-reac tive 04/03/2022 4:41 PM PHOTOSTATIC COPY MAKER [facility] Comment:Hepatitis C Antibody screen indicates no serologic evidence of past or current infection with Hepatitis C Virus. Patients with unexplained liver disease who are immunocompromised or suspected of having acute Hepatitis C infection may benefit from Nucleic Acid Test (BASIL) for Hepatitis C Viral RNA to confirm Hepatitis C status. Blood BLOOD SPECIMEN / Unknown Lab Venipuncture / Unknown 04/03/2022 2:48 PM PHOTOSTATIC COPY MAKER 04/03/2022 3:02 PM PHOTOSTATIC COPY MAKER us Juan Miranda MD LAB - CHEMISTRY ORDERABLES Fi nal Result Performing Organization Address [facility]/ZIP Co de Phone Number [address] [address], [facility] [phone] from Last 3 Months or Most Recently Relevant to Health Maintenance Insurance [facility] MANAGED MEDICARE ADV PAYOR GENERIC Advance Directives * Full Code (Latest Code Status on File) Date Activated Date Inactivated Comments 05/31/2021 11:50 PM 06/04/2021 5:45 PM * Full Code Date Activated Date Inactivated Comments 04/29/2021 10:54 PM 05/16/2021 12:51 PM * Full Code Date Activated Date Inactivated Comments 03/25/2021 4:16 PM 03/27/2021 4:33 PM Care Teams Substance Abuse Specialist Relationship Specialty Start Date End Date Trish Hatch MD [address] [place] [address] PCP - General Family Medicine 04/08/23
== END 2024-08-11 13:56 | disposition home or self-care (01) ==
PROVIDERS: Emergency Provider Nurse Practitioner; PCP Family Medicine
DX: J45.901 Unspecified asthma with (acute) exacerbation (principal); I10 Essential (primary) hypertension; K70.30 Alcoholic cirrhosis of liver without ascites; J45.909 Unspecified asthma, uncomplicated; G62.9 Polyneuropathy, unspecified; G25.81 Restless legs syndrome; D50.0 Iron deficiency anemia secondary to blood loss (chronic); Z87.891 Personal history of nicotine dependence; Z96.642 Presence of left artificial hip joint
CPT/HCPCS: 94640; 99213; G0463; J7512

== ENCOUNTER 2024-08-12 13:09 | Outpatient (CLI) | payer MEDICARE, SELFPAY ==
[2024-08-12 14:30] LABS: Influenza A QL RT-PCR Negative (Negative); Influenza B QL RT-PCR Negative (Negative); RSV RNA, RT-PCR Negative (Negative); SARS-CoV-2 RNA PCR Negative (Negative)
--- OUTSIDE RECORDS SUMMARY | 2024-08-12 14:47 | XMS_ITS | Clinical Summary ---
Author Organization [facility] Address [address] [place] [address] Care Team Providers Care Police Chief Deputy Name Role Phone Trish Hatch MD Primary Care Provider [phone] Source Comments [facility],non-owned Affiliates and Associated Physician Practices is amultiple site organization consisting of ambulatory clinics and hospital sitesin [place], [place], [place] and [place]. This disclosure is being madepursuant to the Care Everywhere program and may not contain all information available regarding this patient. Last updated 18.[facility] Allergies No known active allergies Medications * [...] Active ipratropium (Atrovent) 0.03 % nasal spray [place] 1 spray into each nostril once daily [...] 30 tablet 05/15/19 25 Active sodium chloride (Chalco; Baby [place]) 0.65 % nasal spray [place] 2 (two) sprays into each nostril 4 [...] 08/11/2024 Telephone [facility] - GI [address] [place] [phone] Roxana Aguilar manager of pharmacy Issue 07/09/2024 Telephone [facility] - Nephrology [address] [place] [phone] Terra Ford RN Medication Issue 07/02/2024 Refill [facility] [address] [place] [phone] Sanjay Espinosa, HARDWARE MANAGER REFILL 07/02/2024 Telephone [facility] [address] [place] [phone] Sanjay Espinosa, manager of pharmacy Issue 05/22/2024 1:15 PM ROD MACHINE OPERATOR Office Visit [facility] - ENT [address] [place] [phone] Anibal Hdz MD Nasal valve collapse (Primary Dx) 05/22/2024 Travel 05/15/2024 1:23 PM ROD MACHINE OPERATOR Anesthesia Event [facility] [address] [place] [phone] Daniel Le MD Keeven, Grace C, CAT SKINNER-HEAD OF MUSIC 05/15/2024 12:28 PM ROD MACHINE OPERATOR - 05/15/2024 3:43 PM ROD MACHINE OPERATOR Surgery [facility] [address] [place] [phone] Anibal Hdz MD OPEN SEPTORHINOPLASTY, AURICULAR CARTILAGE GRAFT, BILATERAL INFERIOR TURBINATE REDUCTION 05/15/2024 10:37 AM ROD MACHINE OPERATOR - 05/15/2024 6:14 PM ROD MACHINE OPERATOR Hospital Encounter [facility] [address] [place] [address] Anibal Hdz MD Surgery General Discharge Disposition: Home or Self Care from Last 3 Months Immunizations Immunization Administration Dates Next Due Fourier Education primary monoval ent 12+ yr 0.3mL Purple [...] on file Legal Sex Female 6:27 PM ROD MACHINE OPERATOR Gender Identity Not on file Sexual Orientation Not on file Last Filed Vital Signs Vital Sign Reading Time Taken Comments Blood Pressure 105/71 05/22/2024 1:08 PM ROD MACHINE OPERATOR Pulse 58 05/22/2024 1:08 PM ROD MACHINE OPERATOR Temperature 37 C (98.6 F) 05/15/2024 5:00 PM ROD MACHINE OPERATOR Respiratory Rate 11 05/15/2024 5:30 PM ROD MACHINE OPERATOR Oxygen Saturation 96% 05/15/2024 5:30 PM ROD MACHINE OPERATOR Inhaled Oxygen Concentration - - Weight 59.9 kg (132 lb) 05/22/2024 1:08 PM ROD MACHINE OPERATOR Height 162.6 cm (5' 4 ) 05/22/2024 1:08 PM ROD MACHINE OPERATOR Body Mass Index 22.66 05/22/2024 1:08 PM ROD MACHINE OPERATOR Plan of Treatment Upcoming Encounters Date Type Department Care Team (Late st Contact Info) Description 08/25/2024 1:00 PM CDT [facility] [address] [place] [phone] Anibal Hdz MD [address] [place] [address] [place] [address] 11/10/2024 8:40 AM CDT Appointment [facility] CAT SCAN [address] [place] [phone] Juan Miranda MD [address] [place] [phone] 11/10/2024 9:30 AM CDT Office Visit [facility] [address] [place] [phone] Juan Miranda MD [address] [place] [phone] Health Maintenance Due Date Last Done Comments [...] as prescribed Medical Devices Implanted Type Area Weight Engineer Device Identifier Shelf Expiration Date Model / Serial / Lot Screw 6.5mm 7.9mm 2.9mm 85mm P/T Rvrs Implanted:Qty: 3 on 03/25/2021 by Chad Vargas MD at [facility] Left: Leg Synthes Usa [id number] / / Shell Actb 52mm Hip 3 Hl Poly R3 Std Implanted:Qty: 1 on 05/08/2021 by Edson Robbins MD at [facility] Left: Hip [employer] 11/22/2030 [id number] / / [id number] Screw 6.5mm 40mm Sphrcl Head Hip Actb Implanted:Qty: 1 on 05/08/2021 by Edson Robbins MD at [facility] Left: Hip [employer] 07/05/2030 [id number] / / [id number] Dual Mobility Liner Implanted:Qty: 1 on 05/08/2021 by Edson Robbins MD at [facility] Left: Hip [employer] 09/25/2030 [id number] / / [id number] Dual Mobility Insert Implanted:Qty: 1 on 05/08/2021 by Edson Robbins MD at [facility] Left: Hip [employer] 09/13/2030 [id number] / / [id number] Stem Standard With Ti/Valle Implanted:Qty: 1 on 05/08/2021 by Edson Robbins MD at [facility] Left: Hip [employer] 12/05/2027 [id number] / / [id number] Femoral Head Implanted:Qty: 1 on 05/08/2021 by Edson Robbins MD at [facility] Left: Hip [employer] 12/04/2030 [id number] / / [id number] Redapt Femoral Standard Offset Implanted:Qty: 1 on 06/02/2021 by Edson Robbins MD at [facility] Left: Hip [employer] 09/22/2029 [id number] / / [id number] Femoral Head Implanted:Qty: 1 on 06/02/2021 by Edson Robbins MD at [facility] Left: Hip [employer] 11/29/2029 [id number] / / [id number] Dual Mobility Insert Implanted:Qty: 1 on 06/02/2021 by Edson Robbins MD at [facility] Left: Hip [employer] 03/06/2030 [id number] / / [id number] Cable Orth Cocr 2mm 75mm Troch Clp Implanted:Qty: 1 on 06/02/2021 by Edson Robbins MD at [facility] Left: Hip [employer] 07/27/2030 [id number] / / [id number] Cable Orth Cocr 2mm 75mm Troch Clp Implanted:Qty: 1 on 06/02/2021 by Edson Robbins MD at [facility] Left: Hip [employer] 11/06/2028 [id number] / / [id number] Redapt Femoral Modular Sleeve Implanted:Qty: 1 on 06/02/2021 by Edson Robbins MD at [facility] Left: Hip [employer] 06/29/2030 [id number] / / [id number] Splnt Nsl Precut Ster - St Implanted:Qty: 1 on 05/15/2024 by Anibal Hdz MD at [facility] N/A: Nose [employer] 08/20/[id number] / / [id number] Explanted Type Area Weight Engineer Device Identifier Shelf Expiration Date Model / Serial / Lot Screw 6.5mm 7.9mm 2.9mm 80mm P/T Rvrs. Explanted:Qty: 1 on 03/25/2021 by Chad Vargas MD at [facility] Left: Leg Synthes Usa [id number] / / Procedures Procedure Name Priority Date/Time Associated Diagnosis Comments ENDOTRACHEAL TUBE NOTE Routine 05/15/2024 1:52 PM ROD MACHINE OPERATOR GA RECONSTR NOSE+CHRISTY SEPTAL REPAIR 05/15/2024 1:00 PM ROD MACHINE OPERATOR Nasal valve blockage Nasal obstruction Special Needs Microdebrider 05/07 BC BASIC METABOLIC PANEL (CALCIUM TOTAL) STAT 05/15/2024 11:28 AM ROD MACHINE OPERATOR Alcohol use disorder, severe, in sustained remission PT-INR [facility] STAT 05/15/2024 11:28 AM ROD MACHINE OPERATOR Alcohol use disorder, severe, in sustained remission CBC W/O DIFFERENTIAL STAT 05/15/2024 11:28 AM ROD MACHINE OPERATOR Alcohol use disorder, severe, in sustained remission TEG 6 GLOBAL HEMOSTASIS STAT 05/15/2024 11:28 AM ROD MACHINE OPERATOR Alcohol use disorder, severe, in sustained remission HEPATITIS C ANTIBODY Routine 04/03/2022 2:48 PM ROD MACHINE OPERATOR Alcohol use disorder, severe, in sustained remission Encounter for screening for other viral diseases from Last 3 Months or Most Recently Relevant to Health Maintenance Results * ETT LINE PERFORMABLE (05/15/2024 1:52 PM ROD MACHINE OPERATOR) Narrative Huyen Gilliam APRN-CRNA - 05/15/2024 1:52 PM ROD MACHINE OPERATOR Huyen Gilliam APRN-CRNA 05/15/2024 1:53 PM Endotracheal Tube Placement: Patient Location: OR. Intubation Event Date/Time: 05/15/2024 1:35 PM Procedure: intubation (28081) Procedure Section: Sedation: under general anesthesia. Indications [...] PM. Staff Section Anesthesia Provider: Huyen Gilliam APRN-SALESPERSON SHEET MUSIC, Performed the procedure Provider #1: Daniel Le MD. Daniel Le MD GENERAL ANESTHESIA ORDERABLES Final Result * TEG 6 GLOBAL HEMOSTASIS (05/15/2024 11:28 AM ROD MACHINE OPERATOR) Citrated Kaolin R (Reaction Time) 8.3 4.6 - 9.1 min 05/15/2024 12:07 PM [facility] Comment:CK R decreased by CK H R is above normal range. Consider presence of Heparin. Citrated Kaolin K (Clot Kinetics) 1.5 0.8 - 2.1 min 05/15/2024 12:07 PM [facility] Citrated Kaolin Angle 70.7 63.0 - 78.0 deg 05/15/2024 12:07 PM [facility] Citrated Kaolin MA (Max Amplitude) 58.3 52.0 - 69.0 mm 05/15/2024 12:07 PM [facility] Citrated Kaolin w/Heparinase R (Reaction Time) 6.4 4.3 - 8.3 min 05/15/2024 12:07 PM [facility] Citrated Functional Fibrinogen MA (Max Amplitude) 20.3 15.0 - 32.0 mm 05/15/2024 12:07 PM [facility] Citrated Functional Fibrinogen FLEV 370.4 278.0 - 581.0 mg/dL 05/15/2024 12:07 PM [facility] Citrated RapidTEG MA (Max Amplitude) 61.0 52.0 - 69.0 mm 05/15/2024 12:07 PM [facility] Blood BLOOD SPECIMEN / Unknown Venipuncture / Unknown 05/15/2024 11:28 AM ROD MACHINE OPERATOR 05/15/2024 11:34 AM [facility] us Dainel Le MD LAB - HEMATOLOGY ORDERABLES Fi nal Result [facility] [address] [place] [address], [facility] [phone] * (ABNORMAL) PT-INR [facility] (05/15/2024 11:28 AM ROD MACHINE OPERATOR) PT 15.9(H) 12.1 - 14.8 Seconds 05/15/2024 1:12 PM [facility] INR 1.3 See Comment 05/15/2024 1:12 PM [facility] Comment:The suggested therap eutic range for standard coumadin (warfarin) therapy is an INR of 2.0-3.0. For high-risk patients (Mechanical Mitral Valve Prosthesis, etc.), the suggested prophylactic therapeutic range is an INR of 2.5-3.5. Blood BLOOD SPECIMEN / Unknown Venipuncture / Unknown 05/15/2024 11:28 AM ROD MACHINE OPERATOR 05/15/2024 11:33 AM [facility] us Daniel Le MD LAB - COAGULATION ORDERABLES F inal Result [address] [phone] [phone] * (ABNORMAL) CBC W/O DIFFERENTIAL (05/15/2024 11:28 AM ROD MACHINE OPERATOR) WBC 5.0 4.0 - 10.7 x10E9/L 05/15/2024 12:07 PM [facility] RBC Count 3.86(L) 3.90 - 5.20 x10E12/L 05/15/2024 12:07 PM [facility] Hemoglobin 12.3 11.9 - 15.8 g/dL 05/15/2024 12:07 PM [facility] Hematocrit 35.3 34.8 - 46.1 % 05/15/2024 12:07 PM [facility] MCV 91.5 80.0 - 98.0 fL 05/15/2024 12:07 PM [facility] MCH 31.9 26.7 - 33.6 pg 05/15/2024 12:07 PM [facility] MCHC 34.8 31.7 - 36.3 g/dL 05/15/2024 12:07 PM [facility] RDW-CV 14.2 11.3 - 14.8 % 05/15/2024 12:07 PM [facility] Platelet Count 103(L) 150 - 420 x10E9/L 05/15/2024 12:07 PM [facility] MPV 10.6 7.8 - 11.4 fL 05/15/2024 12:07 PM [facility] Blood BLOOD SPECIMEN / Unknown Venipuncture / Unknown 05/15/2024 11:28 AM ROD MACHINE OPERATOR 05/15/2024 11:54 AM ROD MACHINE OPERATOR us Daniel Le MD LAB - HEMATOLOGY ORDERABLES Fi nal Result [facility] [address] [place] [phone], [facility] [phone] * (ABNORMAL) BASIC METABOLIC PANEL (CALCIUM TOTAL) (05/15/2024 11:28 AM ROD MACHINE OPERATOR) BUN 12 7 - 26 mg/dL 05/15/2024 1:09 PM [facility] Creatinine 0.61 0.56 - 0.96 mg/dL 05/15/2024 1:09 PM [facility] Sodium 144 136 - 145 mmol/L 05/15/2024 1:09 PM [facility] Potassium 2.8(L) 3.5 - 4.5 mmol/L 05/15/2024 1:09 PM [facility] Chloride 103 98 - 107 mmol/L 05/15/2024 1:09 PM [facility] CO2 31(H) 22 - 29 mmol/L 05/15/2024 1:09 PM [facility] Glucose 88 70 - 99 mg/dL 05/15/2024 1:09 PM [facility] Calcium 8.6 8.4 - 10.2 mg/dL 05/15/2024 1:09 PM [facility] Anion Gap 10 6 - 16 05/15/2024 1:09 PM [facility] BUN/Creatinine Ratio 20 7 - 23 05/15/2024 1:09 PM [facility] Osmolality Calculated 297(H) 275 - 295 mOsm/kg 05/15/2024 1:09 PM [facility] eGFR by CKD-EPI >90 >=90 mL/min/1.7 3 m2 05/15/2024 1:09 PM ROD MACHINE OPERATOR [facility] Blood BLOOD SPECIMEN / Unknown Venipuncture / Unknown 05/15/2024 11:28 AM ROD MACHINE OPERATOR 05/15/2024 12:43 PM ROD MACHINE OPERATOR Daniel Le MD LAB - CHEMISTRY ORDERABLES Fin al Result Performing Organization Address [facility]/ZIP Co de Phone Number [address] [phone], [facility] [phone] * HEPATITIS C ANTIBODY (04/03/2022 2:48 PM ROD MACHINE OPERATOR) Hepatitis C Antibody Non-react reese Non-reac tive 04/03/2022 4:41 PM ROD MACHINE OPERATOR [facility] Comment:Hepatitis C Antibody screen indicates no serologic evidence of past or current infection with Hepatitis C Virus. Patients with unexplained liver disease who are immunocompromised or suspected of having acute Hepatitis C infection may benefit from Nucleic Acid Test (BASIL) for Hepatitis C Viral RNA to confirm Hepatitis C status. Blood BLOOD SPECIMEN / Unknown Lab Venipuncture / Unknown 04/03/2022 2:48 PM ROD MACHINE OPERATOR 04/03/2022 3:02 PM ROD MACHINE OPERATOR us Juan Miranda MD LAB - CHEMISTRY ORDERABLES Fi nal Result Performing Organization Address [facility]/ZIP Co de Phone Number [address] [address], [facility] [phone] from Last 3 Months or Most Recently Relevant to Health Maintenance Insurance [facility] MANAGED MEDICARE ADV PAYOR GENERIC Advance Directives * Full Code (Latest Code Status on File) Date Activated Date Inactivated Comments 05/31/2021 11:50 PM 06/04/2021 5:45 PM * Full Code Date Activated Date Inactivated Comments 04/29/2021 10:54 PM 05/16/2021 12:51 PM * Full Code Date Activated Date Inactivated Comments 03/25/2021 4:16 PM 03/27/2021 4:33 PM Care Teams Police Chief Deputy Relationship Specialty Start Date End Date Trish Hatch MD [address] [place] [address] PCP - General Family Medicine 04/08/23
--- OUTSIDE RECORDS SUMMARY | 2024-08-12 14:47 | XMS_ITS | Encounter Summary ---
Author Organization [facility] Address [address] [facility] [place] [address] Care Team Providers Care Male Impersonator Name Role Phone Trish Hatch MD Primary Care Provider [phone] Encounter Details Date Type Department Care Team (Late st Contact Info) Description 04/09/2024 Lab Requisition [facility] - [facility]ermPath Lab [address] [facility], [place] [address] Teresa Hunt MD [address] [place] [address] [place] [address] Neoplasm of uncertain behavior of [...] on file Legal Sex Female 6:27 PM DIRECTOR OF PAYROLL Gender Identity Not on file Sexual Orientation [...] Office Visit [facility] - ENT [address] [place] [phone] Anibal Hdz MD [address] [place] [address] [place] [address] 11/10/2024 8:40 AM CDT Appointment [facility] CAT SCAN [address] [place] [address] Juan Miranda MD [address] [place] [phone] 11/10/2024 9:30 AM CDT Office Visit [facility] - GI [address] [place] [phone] Juan Miranda MD [address] [place] [address] [place] [phone] documented as of this encounter Goals Goal Patient Goal Type Associated Problems Recent Progress Patient-Stated? Author Medication Management General On track( 024 11:46 AM CDT) Isabel Amin RN Note: Expected end date: ongoing Interventions: Take all medications as prescribed documented as of this encounter Procedures Procedure Name Priority Date/Time Associated Diagnosis Comments DERMATOPATHOLOGY Routine 04/09/2024 12:0 0 AM DIRECTOR OF PAYROLL Neoplasm of uncertain behavior of skin documented in this encounter Results * DERMATOPATHOLOGY (04/09/2024 12:00 AM DIRECTOR OF PAYROLL) Case Report Dermatopathology Report Case: [id number] Authorizing Provider: Teresa Hunt MD Collected: 04/09/2024 12:00 AM Ordering Location: [facility] - Received: 04/10/2024 12:53 PM DermPath Lab Pathologist: Doc Lima MD Specimen: Skin, right mid episcopal 1:16 PM DIRECTOR OF PAYROLL DERMATOPATHOLOGY LABORATORY Final Diagnosis Specimen A. SKIN, right mid episcopal: ACTINIC KERATOSIS, PIGMENTED (L57.0) 1:16 PM [facility] DERMATOPATHOLOGY LABORATORY Clinical History Macular SK vs lentigo maligna vs lentigo 1:16 PM [facility] DERMATOPATHOLOGY LABORATORY Gross Description Specimen A: Received is one formalin filled container labeled with the patient's name and designated right mid episcopal. The specimen consists of a shave biopsy measuring 7x5x2 mm. Jar 0. 1:16 PM [facility] DERMATOPATHOLOGY LABORATORY Microscopic Description Specimen A. SKIN, right mid episcopal: There is alternating orthokeratosis and parakeratosis. Along the undersurface of the epidermis, there are buds of atypical keratinocytes in a disorderly arrangement. There is prominent pigmentation in some of the keratinocytes. 1:16 PM [facility] DERMATOPATHOLOGY LABORATORY Disclaimer An external and internal positive and negative controls are appropriate for the histochemical, immunohistochemical and immunofluorescence stain(s) in this case (if any), except where stated explicitly. The performance characteristics of the stain(s) cited in this report were developed and its performance characteristic determined by the Dermatopathology Laboratory at [facility], directed by Dr. Loren Lima. These tests need not be, and therefore are not, approved by the [place] Food and Drug Administration. The tests are used for clinical purposes. Billing Codes Specimen Charges Stain Charges 44156 1 4 1:16 PM DIRECTOR OF PAYROLL DERMATOPATHOLOGY LABORATORY Embedded Images 4 1:16 PM DIRECTOR OF PAYROLL DERMATOPATHOLOGY LABORATORY Pathology/Cytolog y TISSUE SPECIMEN FROM SKIN / Unknown 04/09/2024 04/10/2024 12:53 PM DIRECTOR OF PAYROLL us Teresa Hunt MD LAB - PATHOLOGY/CYTOLOGY ORDERAB LES Final Result DERMATOPATHOLOGY LABORATORY [facility] - Department of Dermatology [facility] [address] [place] [address], [address] [phone] documented in this encounter Visit Diagnoses Diagnosis Neoplasm of uncertain behavior of skin documented in this encounter Care Teams Male Impersonator Relationship Specialty Start Date End Date Trish Hatch MD [address] [place] [address] PCP - General Family Medicine 04/08/23 documented as of this encounter
--- OUTSIDE RECORDS SUMMARY | 2024-08-12 14:47 | XMS_ITS | Encounter Summary ---
Author Organization [facility] Health Address [address] [place] [address] Care Team Providers Care Placement Specialist Name Role Phone Trish Hatch MD Primary Care Provider Reason for Visit * Reason Onset Date Comments Medication Issue 08/11/2024 Encounter Details Date Type Department Care Team (Late st Contact Info) Description 08/11/2024 Telephone [facility] - [address] [phone] Roxana Aguilar, refrigerated national truck driver Issue Social History Tobacco Use Types Packs/Day [...] on file Legal Sex Female 6:27 PM CONCRETE HOPPER OPERATOR Gender Identity Not on file Sexual [...] Description 08/25/2024 1:00 PM CDT Office Visit [facility] - ENT [address] [place] [phone] Anibal Hdz MD [address] [place] [address] [place] [address] 11/10/2024 8:40 AM CDT Appointment [facility] CAT SCAN [address] [place] [address] Juan Miranda MD [address] [place] [phone] 11/10/2024 9:30 AM CDT Office Visit [facility] - GI [address] [facility], [place] [phone] Juan Miranda MD [address] [place] [phone] documented as of this encounter Goals Goal Patient Goal Type Associated Problems Recent Progress Patient-Stated? Author Medication Management General On track( 024 11:46 AM CDT) Isabel Amin, RN Note: Expected end date: ongoing Interventions: Take all medications as prescribed documented as of this encounter Visit Diagnoses Not on filedocumented in this encounter Care Teams Placement Specialist Relationship Specialty Start Date End Date Trish Hatch MD [address] [place] [address] PCP - General Family Medicine 04/08/23 documented as of this encounter
--- OUTSIDE RECORDS SUMMARY | 2024-08-12 14:47 | XMS_ITS | Clinical Summary ---
Author Organization [facility] Address [address] [place], [address] [address] Phone Care Team Providers Care Market Development Manager Name Role Phone Unavailable Primary Care Provider Unavailabl e Social History Tobacco Use Types Packs/Day Years Used Date Smoking Tobacco: Never Assessed Comments Unknown Sex and Gender Information Value Date Recorded Sex Assigned at Not on file Legal Sex Female 10:52 AM SENIOR ADMINISTRATIVE ASSOCIATE Gender Identity Not on file Sexual Orientation [...]
== END 2024-08-12 13:10 | disposition home or self-care (01) ==
LOC: ANHLAB 13:13
PROVIDERS: PCP Family Medicine; Visit Provider Family Medicine
DX: J06.9 Acute upper respiratory infection, unspecified (principal)
CPT/HCPCS: 87637

== ENCOUNTER 2024-09-11 08:00 | Outpatient (CLI) | payer MEDICARE, SELFPAY ==
--- NOTE | ~2024-09-11 | US_ITS ---
Limited Abdominal Sonogram: Real-time sonographic imaging of the right upper quadrant was performed. Clinical History: Cirrhosis of liver Findings: The liver appears echogenic/heterogeneous with no evidence of mass lesion or bile duct dil atation. Main portal vein demonstrates normal direction of flow. The gallbladder is well distended, a nd appears normal with no evidence of gallstone or wall thickening. The common bile duct measures 5 m m. The visualized aorta and IVC are unremarkable. Pancreas largely obscured by bowel gas shadowing/b jamison habitus, but the visualized portions appear grossly unremarkable Impression: Diffuse fatty infiltration of the liver versus other chronic liver disease. Reviewed, dictated and finalized at location M. Impression: Diffuse fatty infiltration of the liver versus other chronic liver disease.
== END 2024-09-11 08:01 | disposition home or self-care (01) ==
LOC: MICIMG 08:02
PROVIDERS: PCP Family Medicine; Visit Provider Internal Medicine Gastroenterology
DX: K76.0 Fatty (change of) liver, not elsewhere classified (principal)
CPT/HCPCS: 76705

== ENCOUNTER 2024-10-23 10:51 | Emergency (ER) | payer MEDICARE, SELFPAY ==
--- NOTE | 2024-10-23 10:53 | ED_ITS ---
HPI - URI/Sore Throat General Chief Complaint: Upper Respiratory Infection Stated Complaint: coughing/congestion/fever Time Seen by Provider: 10/23/24 11:11 Source: patient, RN notes reviewed and old records reviewed Mode of arrival: ambulatory Limitations: no limitations History of Present Illness HPI Narrative: 59-year-old female presents to the [facility] with complaints of fever, right ear pain, productive cough. Symptoms of generalized body aches and not feeling well started on Saturday, 5 days ago. Flu home Saturday from visiting family. Reports fevers 102.4. Has had make so congestion, runny nose, increasing right ear pain worse over the last 2 days. Has taken Tylenol and Zyrtec. Onset (ago): day(s) (5) Treatments prior to arrival: acetaminophen and other (Zyrtec) Related Data Home Medications ?Medication ?Instructions ?Recorded ?Confirmed ?Last Taken ?Type timolol 0.5 %-dorzolamide 2 1 drp ophthalmic (eye) DAILY 09/12/20 10/01/24 09/27/20 History %-latanprost 0.005 % (PF) eye drops nadolol 20 mg tablet 20 mg PO DAILY 05/22/22 10/01/24 Unknown History Allergies Allergy/AdvReac Type Severity Reaction Status Date / Time codeine AdvReac Intermediate Nausea and Verified 10/23/24 11:00 Vomiting Review of Systems Review of Systems: All systems reviewed & are unremarkable except as noted in HPI and below Constitutional: Constitutional: Reports no additional constitutional complaints ENT: Reports as per HPI, Reports otalgia and Reports sinus pressure Cardiovascular: Cardiovascular: Reports no additional cardiovascular complaints, Denies chest pain and Denies dyspnea Respiratory: Respiratory: Reports as per HPI, Denies chest congestion, Reports cough and Denies dyspnea Musculoskeletal: Musculoskeletal: Reports no additional musculoskeletal complaints Integumentary/Breasts: Skin/Breast: Reports system reviewed and no additional complaints, except as docu [facility] Past Medical History Medical History Vitamin D deficiency Lumbar radiculopathy, chronic Liver disease due to alcohol Iron deficiency anemia due to chronic blood loss Benign hypertension Alcoholism, chronic Irritable bowel syndrome with constipation Lower abdominal tenderness Epigastric abdominal pain Dysphagia Gas bloat syndrome Colon cancer screening Sacroiliitis Encounter for immunization Hepatic insufficiency Colon cancer screening Cirrhosis, alcoholic Hiatal hernia Chronic anemia Thrombocytopenia Esophageal varices (~07/2019) Status post band ligation in July 2019. Nonbleeding varices on EGD in September 2019. Alcoholism Asthma Anxiety Peripheral neuropathy Restless leg syndrome Upper gastrointestinal hemorrhage (~07/2019) Esophageal varices bleeding, status post band ligation. Hypertension Surgical History Surgical History History of rhinoplasty History of nasal septoplasty History of left hip replacement History of endoscopy (~07/2019) Band ligation of esophageal varices. History of hand surgery ORIF left hand fracture with hardware. History of tonsillectomy Family History Family History Father Family history of cardiovascular disease Hypertension Cancer CHF (congestive heart failure) Alcoholism Heart disease Mother Brain cancer Skin cancer Grandparent Hypertension Depression Grandparent Alcoholism Heart disease Social History Social History Social History: The patient is and lives with her in [place]. 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 She smoked for short period of time many years ago. No illicit substance use. She designates her Gulshan as her surrogate decision maker and wishes to be a full code. Smoking packs per day: 0.25 Smoking cigarettes per day: 5.0 Years smoked: 10 Smoking pack-years: 2.50 Smoking status: Former smoker Tobacco type: cigarettes Second hand tobacco smoke exposure: No Smoking end date: 11/17/13 Additional smoking assessment comments: social smoker Alcohol intake: former Alcohol use details: Alcohol Abuse Substance use: never Substance use type: does not use Do You Feel Safe in your Home?: Yes Lack of Transportation: No Lack of Food: Never True Current Housing: I Have Housing Concerned About Future Housing: No Difficulty Paying Gas/Electric Bills: No Difficulty Paying for Meds: YES Currently Unemployed: YES Education: Decline to Answer Difficulty w/ Childcare or Family Care: No Living arrangements: with family Occupation/Education: occupation 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 There is no relevant family history pertinent to the patient complaint. Exam Const: General: cooperative, no acute distress, well developed, alert, tired appearing, uncomfortable and well nourished Nutritional Appearance: well nourished Orientation/consciousness: patient oriented x3 Limitations: no limitations HENMT: Head: normal to inspection Ears: hearing grossly normal bilaterally, external ears normal, TM normal on the left, EAC's normal, mastoids normal, no periauricular adenopathy and TM abnormal erythematous on the right Face/Nose/Sinus: Normal external nose present, Nasal discharge present clear bilateral, face symmetric, No erythema and sinus tenderness Face and sinus: normal facial exam Mouth: Yes Normal oral and palatal mucosa present, Yes lip normal, Yes tongue normal and Yes moist mucous membranes Throat: uvula midline, postnasal drainage and no uvular edema Eyes: General: appearance normal, both eyes and all related structures Alignment and Position: alignment normal Neck: Neck: normal visual inspection, full ROM, no lymphadenopathy and no meningeal signs Chest: Chest palpation & inspection: normal inspection of the chest Resp: Effort & Inspection: normal respiratory effort and able to speak in complete sentences Auscultation: clear to auscultation bilaterally, no crackles, no rales, no rhonchi and no wheezes Cardio: Rate: regular rate Skin: General skin exam: normal color and no rashes or lesions noted Neuro: General: patient oriented x3, gait normal, moves all extremities and no meningeal signs Cognition (Neuro): normal cognition Speech: normal speech Gait exam (Neuro): Normal gait present Extrem: General: normal to inspection, full ROM, capillary refill normal and normal gait Psych: Appearance: grossly normal and well kempt Mental Status: mental status grossly normal Speech and movement: Normal speech and movement present and Clear speech present Affect: normal affect Attitude: cooperative Course Course Level of Care: Express Care Visit Vital Signs Vital signs: Vital Signs Temperature 99.0 F 10/23/24 11:00 Pulse Rate 69 10/23/24 11:00 Respiratory Rate 18 10/23/24 11:00 Blood Pressure 134/61 10/23/24 11:00 Pulse Oximetry 98 10/23/24 11:00 Oxygen Delivery Room Air 10/23/24 11:00 Temperature 99.0 F 10/23/24 11:00 Pulse Rate 69 10/23/24 11:00 Respiratory Rate 18 10/23/24 11:00 Blood Pressure 134/61 10/23/24 11:00 Pulse Oximetry 98 10/23/24 11:00 Oxygen Delivery Room Air 10/23/24 11:00 Reviewed MDM - URI/Sore Throat MDM Narrative Medical decision making narrative: Patient sitting in exam room. Patient is nontoxic, vitals are stable. Patient presents with 5 day history of URI symptoms, increasing, reported fever. Flu, COVID and strep were all negative. Patient's with red right TM, sinusitis. Patient appropriate for treatment of the otitis media with Augmentin. Discussed cpop-nhv-bzuhpbn products as well. Patient verbalized understand Discharge instructions reviewed with patient, as well as provided in writing per nursing staff. The instructions also include specific and strict return/GO TO THE ER as well as f/u information. All questions have been answered, and the patient deny any further questions with discharge and discharge plan. Some parts of this dictation were generated by voice recognition software and may contain typographical and/or grammatical inaccuracies. Differential Diagnosis Differential diagnosis: Likely upper respiratory infection, otitis media, sinusitis, viral infection, bronchitis, influenza and pharyngitis Lab Data Labs: Lab Results 10/23/24 Range/Units 11:23 POC Influenza A Ag Negative (Negative) POC Influenza B Ag Negative (Negative) POC SARS CoV-2 Ag Negative (Negative) POC Grp A Strep Screen Negative (Negative) Reviewed Critical Care Time Critical Care Time Critical Care Time: No Discharge Plan Discharge Clinical Impression: Acute right otitis media Sinusitis Qualifiers: Sinusitis location: pansinusitis Chronicity: acute Recurrence: not specified as recurrent Qualified Code(s): J01.40 - Acute pansinusitis, unspecified Patient Disposition: Home Condition: Stable Instructions: Antibiotic Form, Sinusitis (ED), Ear Infection (GEN) Additional Instructions: Your rapid strep swab was negative today at [facility]. A throat culture will be sent to the laboratory for further testing. If the test is positive, you will receive a phone call within 48 hours and an appropriate antibiotic will be initiated at that time. Your rapid COVID test were negative Your rapid flu test was negative It is very important to treat your symptoms. Drink plenty of water, Gatorade, Pedialyte, ice pops or Jell-O. -Alternate Tylenol and Motrin per package directions for fever or pain. You can alternate every 4 hours -Antihistamine medication such as Zyrtec/Claritin/Delphine during the day can help improve symptoms. -doing daily nasal irrigations can help relieve pressure your sinuses. Things like a Neti pot -Use Flonase twice a day for 5 days then daily to help reduce the inflammation and dry up your sinuses. -You can also use Mucinex. Be sure to drink plenty of water with this medication at least 8 ounces with every dose and it is important to drink 8 to 10 glasses of water per day. Water is a natural decongestant -Eat and drink things that are easy to swallow, like tea or soup, or popsicles. -Oral rinses such as: Salt water gargles and/or may use topical anesthetic (eg. Chloraseptic spray) or lozenges to relieve dryness or throat pain). -Frequent hand washing or hand learning engineer is one of the best ways to prevent spread of infection. -Using a vaporizer or humidifier at night will also help thin secretions and help with coughing up phlegm. -Follow up with primary care provider in 7-10 days if condition is not improving - For new or worsening symptoms go directly to the nearest ER Patient Language: Tajik Prescriptions: New amoxicillin-pot clavulanate 875-125 mg tablet 1 tablet PO Q12H Qty: 20 0RF No Action untajzl-tyxvjjhvmf-hvzcuzi(PF) 0.5-2-0.005 % drops 1 drp ophthalmic (eye) DAILY mupirocin 2 % ointment 1 applic topical BID Qty: 22 1RF Rx Instructions: Intranasal furosemide 40 mg tablet See Rx Instructions .ROUTE .COMPLEX Qty: 60 5RF Dose Instruction: TAKE 2 TABLETS BY MOUTH EVERY MORNING Rx Instructions: TAKE 2 TABLETS BY MOUTH EVERY MORNING nadolol 20 mg tablet 20 mg PO DAILY diclofenac sodium [Arthritis Pain (diclofenac)] 1 % gel 2 g topical QID PRN (Reason: Pain) Qty: 100 0RF Rx Instructions: apply to wrist prn pain metoclopramide HCl [Reglan] 5 mg tablet 5 mg PO .AM Qty: 30 0RF Rx Instructions: before breakfast pantoprazole 40 mg tablet,delayed release (DR/EC) See Rx Instructions .ROUTE .COMPLEX Qty: 180 3RF Dose Instruction: TAKE 1 TABLET BY MOUTH EVERY 12 HOURS Rx Instructions: TAKE 1 TABLET BY MOUTH EVERY 12 HOURS (DME) Hepatitis B See Rx Instructions .Route .MEDSUPPLY Qty: 1 0RF Rx Instructions: As directed for 3rd injection albuterol sulfate [Ventolin HFA] 90 mcg/actuation HFA aerosol inhaler 2 puff INHALATION Q4-6H PRN (Reason: Shortness Of Breath Or Wheezing) Qty: 3 3RF Pulmicort Flexhaler 90 mcg/actuation aerosol powdr breath activated 1 inh inhalation Q12H Qty: 1 0RF trazodone 50 mg tablet 50 mg PO QHS PRN (Reason: insomnia) Qty: 30 0RF Linzess 145 mcg capsule 145 mcg PO DAILY Qty: 90 3RF escitalopram oxalate [Lexapro] 10 mg tablet 10 mg PO DAILY Qty: 90 3RF gabapentin 300 mg capsule 600 mg PO BID Qty: 360 1RF Follow-up/Referrals: Trish Hatch MD [Primary Care Provider] - 2 Weeks ([facility] care follow up) Time of Disposition: 11:24
--- OUTSIDE RECORDS SUMMARY | 2024-10-23 10:53 | XMS_ITS | Encounter Summary ---
Author Organization [facility] Address [address] [place] [address] Care Team Providers Care Batch Or Continuous Still Operator Name Role Phone Trish Hatch MD Primary Care Provider [phone] Encounter Details Date Type Department Care Team (Late st Contact Info) Description 04/09/2024 Lab Requisition [facility] - DermPath Lab [address] [facility], [place] [address] Teresa Hunt MD [address] [place] [address] [place] [phone] Neoplasm of uncertain behavior of [...] on file Legal Sex Female 6:27 PM 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 Gender Identity Not on file Sexual [...] Care Team (Late st Contact Info) Description 11/10/2024 8:40 AM CDT Appointment [facility] CAT SCAN [address] [place] [phone] Juan Miranda MD [address] [place] [phone] 11/10/2024 9:30 AM CDT Office Visit [facility] - GI [address] [place] [phone] Juan Miranda MD [address] [place] [phone] 02/23/2025 1:00 PM 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 Office Visit [facility] - ENT [address] [place] [phone] Anibal Hdz MD [address] [place] [address] [place] [address] documented as of this encounter Goals Goal Patient Goal Type Associated Problems Recent Progress Patient-Stated? Author Medication Management General On track( 024 11:46 AM CDT) Isabel Amin RN Note: Expected end date: ongoing Interventions: Take all medications as prescribed documented as of this encounter Procedures Procedure Name Priority Date/Time Associated Diagnosis Comments DERMATOPATHOLOGY Routine 04/09/2024 12:0 0 AM 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 Neoplasm of uncertain behavior of skin documented in this encounter Results * DERMATOPATHOLOGY (04/09/2024 12:00 AM 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) Case Report Dermatopathology Report Case: [id number] Authorizing Provider: Teresa Hunt MD Collected: 04/09/2024 12:00 AM Ordering Location: [facility] - Received: 04/10/2024 12:53 PM DermPath Lab Pathologist: Doc Lima MD Specimen: Skin, right mid baptism 4 1:16 PM [facility] DERMATOPATHOLOGY LABORATORY Final Diagnosis Specimen A. SKIN, right mid baptism: ACTINIC KERATOSIS, PIGMENTED (L57.0) 4 1:16 PM [facility] DERMATOPATHOLOGY LABORATORY at 1316 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 Clinical History Macular SK vs lentigo maligna vs lentigo 4 1:16 PM [facility] DERMATOPATHOLOGY LABORATORY Gross Description Specimen A: Received is one formalin filled container labeled with the patient's name and designated right mid baptism. The specimen consists of a shave biopsy measuring 7x5x2 mm. Jar 0. 4 1:16 PM [facility] DERMATOPATHOLOGY LABORATORY Microscopic Description Specimen A. SKIN, right mid baptism: There is alternating orthokeratosis and parakeratosis. Along the undersurface of the epidermis, there are buds of atypical keratinocytes in a disorderly arrangement. There is prominent pigmentation in some of the keratinocytes. 4 1:16 PM [facility] DERMATOPATHOLOGY LABORATORY Disclaimer An external and internal positive and negative controls are appropriate for the histochemical, immunohistochemical and immunofluorescence stain(s) in this case (if any), except where stated explicitly. The performance characteristics of the stain(s) cited in this report were developed and its performance characteristic determined by the Dermatopathology Laboratory at [facility], directed by Dr. Loren Lima. These tests need not be, and therefore are not, approved by the [place] Food and Drug Administration. The tests are used for clinical purposes. Billing Codes Specimen Charges Stain Charges 51445 1 4 1:16 PM 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 DERMATOPATHOLOGY LABORATORY Embedded Images 4 1:16 PM 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 DERMATOPATHOLOGY LABORATORY Pathology/Cytolog y TISSUE SPECIMEN FROM SKIN / Unknown 04/09/2024 04/10/2024 12:53 PM 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 us Teresa Hunt MD LAB - PATHOLOGY/CYTOLOGY ORDERAB LES Final Result DERMATOPATHOLOGY LABORATORY [facility] - Department of Dermatology [facility] [address] [address], [address] [phone] documented in this encounter Visit Diagnoses Diagnosis Neoplasm of uncertain behavior of skin documented in this encounter Care Teams Batch Or Continuous Still Operator Relationship Specialty Start Date End Date Trish Hatch MD [address] [place] [address] PCP - General Family Medicine 04/08/23 documented as of this encounter
--- OUTSIDE RECORDS SUMMARY | 2024-10-23 10:53 | XMS_ITS | Clinical Summary ---
Author Organization [facility] [employer] Address [address] [place] [address] Care Team Providers Care Quality Control Clerk Name Role Phone Trish Hatch MD Primary Care Provider [phone] Source Comments [facility] [employer],non-owned Affiliates and Associated Physician Practices is amultiple site organization consisting of ambulatory clinics and hospital sitesin [place] and [place]. This disclosure is being madepursuant to the Care Everywhere program and may not contain all information available regarding this patient. Last updated 18.[facility] [employer] Allergies No known active allergies Medications * Be aware that medications may not be up to date on this document. Alwaysverify current medications with the patient. folic acid 400 MCG tablet Take 1 (one) tablet by mouth once daily 07/09/19 21 Active latanoprost (XALATAN) 0.005 % ophthalmic solution Instill 1 (one) drop into both eyes at bedtime 03/30/20 21 Active cyanocobalamin (VITAMIN B-12) 1000 MCG tablet Take 1 (one) tablet by mouth once daily Active thiamine (VITAMIN B-1) 100 MG tablet Take 1 (one) tablet by mouth once daily 30 tablet 05/17/19 22 Active Additional Information Patient not taking.Reason: Patient adjusted, Reported on 08/25/2024 furosemide (LASIX) 40 MG tablet Take 2 (two) tablets by mouth once daily 04/11/20 22 Active spironolactone (ALDACTONE) 100 MG tablet [...] Active ipratropium (Atrovent) 0.03 % nasal spray [place] 1 spray into each nostril once daily [...] for Pain 15 tablet 05/15/19 25 Active Additional Information Patient not taking.Reason: Patient adjusted, Reported on 08/25/2024 acetaminophen (Tylenol) 500 MG tablet Take 1 (one) tablet by mouth every 6 hours as needed for Fever or Pain Maximum allowable Acetaminophen amount = 4 Grams (4000 mg) / 24 hours. 30 tablet 05/15/19 25 Active Additional Information Patient not taking.Reason: Patient adjusted, Reported on 08/25/2024 sodium chloride ([place]; Baby Lindsay) 0.65 % nasal spray [place] 2 (two) sprays into each nostril 4 times daily 30 mL 05/15/19 25 Active Additional Information Patient not taking.Reason: Patient adjusted, Reported on 08/25/2024 Hepatitis B, CpG-Adjuvanted Vaccine, Adult (Heplisav-B) 20 MCG/0.5ML (HepB-Cpg) Day 0 inject 0.5mL IM and then inject 0.5mL IM 4 weeks from dose 1 0.5 mL 1 07/16/19 25 Active Additional Information Patient not taking.Reason: Other, Reported on 08/25/2024 pantoprazole EC (Protonix) 40 MG tablet Take 1 (one) tablet by mouth 2 times daily 180 tablet 3 08/15/19 25 Active albuterol HFA (Proventil; Ventolin; Proair) 108 (90 Base) MCG/ACT inhaler Inhale 2 (two) puffs by mouth every 6 hours as needed for Shortness of Breath 08/05/19 25 Active budesonide-formoter ol (Symbicort) 80-4.5 MCG/ACT inhaler Inhale 2 (two) puffs by mouth as needed 08/12/19 25 Active Active Problems Problem Noted Date [...] Encounters Date Type Department Care Team Description 09/07/2024 Orders Only [facility] - GI [address] [place] [phone] Juan Miranda MD Other cirrhosis of liver (HCC) 09/07/2024 Telephone [facility] - Nephrology [address] [place] [phone] Denisse Rollins RN Concerns 08/25/2024 1:00 PM CDT Office Visit [facility] - ENT [address] [place] [phone] Anibal Hdz MD Nasal valve collapse (Primary Dx); Neoplasm of uncertain behavior 08/25/2024 Travel 08/11/2024 Telephone [facility] - [address] [facility], [place] [address] 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 (FLUCELVAX QUADRIVALENT; 6MO+) (CCIIV4) 01/28/2019 INFLUENZA VACCINE, CELL CULT URE, QUADR. (FLUCELVAX QUADRIVALENT; 6MO+), 0.5 ML (CCIIV4) 01/23/2018 INFLUENZA VACCINE, QUADR. (F LUZONE; FLULAVAL; FLUARIX; AFLURIA QUADRIVALENT; 6MO+), 0.5 ML (IIV4) 12/26/2022,12/01/2021,01/13/2020 TDAP, HISTORIC VACCINE 01/10/2024,08/30/2021 Zoster Hzv Vacc Recombinant Inj Im 01/03/2022, [...] Average Number of Drinks Not on file 01/09/2 022 Frequency of Binge Drinking Not on file 12/2021 PHQ-2 Answer Date Recorded Patient Health Questionnaire-2 Score 1 01/16/2024 Comments No Sex and Gender Information Value Date Recorded Sex Assigned at Not on file Legal Sex Female 6:27 PM DICE SPOTTER Gender Identity Not on file Sexual Orientation Not on file Last Filed Vital Signs Vital Sign Reading Time Taken Comments Blood Pressure 105/71 05/22/2024 1:08 PM DICE SPOTTER Pulse 58 05/22/2024 1:08 PM DICE SPOTTER Temperature 37 C (98.6 F) 05/15/2024 5:00 PM DICE SPOTTER Respiratory Rate 11 05/15/2024 5:30 PM DICE SPOTTER Oxygen Saturation 96% 05/15/2024 5:30 PM DICE SPOTTER Inhaled Oxygen Concentration - - Weight 60.7 kg (133 lb 12.8 oz) 08/25/2024 1:17 PM CDT Height 162.6 cm (5' 4) 08/25/2024 1:17 PM CDT Body Mass Index 22.97 08/25/2024 1:17 PM CDT Plan of Treatment Upcoming Encounters Date Type Department Care Team (Late st Contact Info) Description 11/10/2024 8:40 AM CDT Appointment [facility] CAT SCAN [address] [place] [phone] Juan Miranda MD [address] [place] [phone] 11/10/2024 9:30 AM CDT Office Visit [facility] - GI [address] [place] [phone] Juan Miranda MD [address] [place] [phone] 02/23/2025 1:00 PM DICE SPOTTER Office Visit [facility] - ENT [address] [place] [phone] Anibal Hdz MD [address] [place] [address] [place] [address] Health Maintenance Due Date Last Done Comments COLOGUARD (AGES 45-75) - COLON CA SCREENING 1967 COLON MONITORING 1967 COLONOSCOPY - COLON CA SCREENING 1967 CT COLONOGRAPHY - COLON CA SCREENING 1967 Colorectal Cancer Screening 1967 FIT - COLON CA SCREENING 1967 FLEX SIG - COLON CA SCREENING 1967 LIPID TESTING 1967 MAMMOGRAM 1967 HIV SCREENING 07/05/1982 PNEUMOCOCCAL VACCINE 50+ (1 of 2 - PCV) 07/05/1986 PAP SMEAR 07/05/1988 COVID-19 VACCINE (2 - season) 2023 04/30/2021 DEPRESSION SCREENING 04/22/2024 01/22/2024 MEDICARE AWV CALENDAR YEAR 2024 INFLUENZA VACCINE (Season Ended) 2024 12/26/2022, 12/01/2021, 01/11/2021, Additional history exists DTAP/TDAP/TD VACCINES (3 - Td or Tdap) 01/09/2034 01/10/2024, 08/30/2021 ZOSTER VACCINE Completed 01/03/2022, 10/27/2021 HEPATITIS C SCREENING Completed 04/03/2022 HEPATITIS B VACCINE Completed 08/14/2024, 07/17/2024, 11/06/2023, Additional history exists HIB VACCINE Aged Out [...] as prescribed Medical Devices Implanted Type Area Medical Technologist Blood Bank Device Identifier Shelf Expiration Date Model / Serial / Lot Screw 6.5mm 7.9mm 2.9mm 85mm P/T Rvrs Implanted:Qty: 3 on 03/25/2021 by Chad Vargas MD at [facility] Left: Leg Synthes Usa [id number] / / Shell Actb 52mm Hip 3 Hl Poly R3 Std Implanted:Qty: 1 on 05/08/2021 by Edson Robbins MD at [facility] Left: Hip [employer] 11/22/2030 [id number] / / [id number] Screw 6.5mm 40mm Sphrcl Head Hip Actb Implanted:Qty: 1 on 05/08/2021 by Edson Robbins MD at [facility] Left: Hip [employer] 07/05/2030 [id number] / / [id number] Dual Mobility Liner Implanted:Qty: 1 on 05/08/2021 by Edson Robbins MD at [facility] Left: Hip [employer] 09/25/2030 [id number] / / [id number] Dual Mobility Insert Implanted:Qty: 1 on 05/08/2021 by Edson Robbins MD at [facility] Left: Hip [employer] 09/13/2030 [id number] / / [id number] Stem Standard With Ti/Valle Implanted:Qty: 1 on 05/08/2021 by Edson Robbins MD at [facility] Left: Hip [employer] 12/05/2027 [id number] / / [id number] Femoral Head Implanted:Qty: 1 on 05/08/2021 by Edson Robbins MD at [facility] Left: Hip [employer] 12/04/2030 [id number] / / [id number] Redapt Femoral Standard Offset Implanted:Qty: 1 on 06/02/2021 by Edson Robbins MD at [facility] Left: Hip [employer] 09/22/2029 [id number] / / [id number] Femoral Head Implanted:Qty: 1 on 06/02/2021 by Edson Robbins MD at [facility] Left: Hip [employer] 11/29/2029 [id number] / / [id number] Dual Mobility Insert Implanted:Qty: 1 on 06/02/2021 by Edson Robbins MD at [facility] Left: Hip [employer] 03/06/2030 [id number] / / [id number] Cable Orth Cocr 2mm 75mm Troch Clp Implanted:Qty: 1 on 06/02/2021 by Edson Robbins MD at [facility] Left: Hip [employer] 07/27/2030 [id number] / / [id number] Cable Orth Cocr 2mm 75mm Troch Clp Implanted:Qty: 1 on 06/02/2021 by Edson Robbins MD at [facility] Left: Hip [employer] 11/06/2028 [id number] / / [id number] Redapt Femoral Modular Sleeve Implanted:Qty: 1 on 06/02/2021 by Edson Robbins MD at [facility] Left: Hip [employer] 06/29/2030 [id number] / / [id number] Splnt Nsl Precut Ster - St Implanted:Qty: 1 on 05/15/2024 by Anibal Hdz MD at [facility] N/A: Nose [employer] 08/20/[id number] / / [id number] Explanted Type Area Medical Technologist Blood Bank Device Identifier Shelf Expiration Date Model / Serial / Lot Screw 6.5mm 7.9mm 2.9mm 80mm P/T Rvrs. Explanted:Qty: 1 on 03/25/2021 by Chad Vargas MD at [facility] Left: Leg Synthes [employer] [id number] / / Procedures Procedure Name Priority Date/Time Associated Diagnosis Comments HEPATITIS C ANTIBODY Routine 04/03/2022 2:48 PM DICE SPOTTER Alcohol use disorder, severe, in sustained remission Encounter for screening for other viral diseases from Last 3 Months or Most Recently Relevant to Health Maintenance Results * HEPATITIS C ANTIBODY (04/03/2022 2:48 PM DICE SPOTTER) Hepatitis C Antibody Non-react resee Non-reac tive 04/03/2022 4:41 PM DICE SPOTTER [facility] Comment:Hepatitis C Antibody screen indicates no serologic evidence of past or current infection with Hepatitis C Virus. Patients with unexplained liver disease who are immunocompromised or suspected of having acute Hepatitis C infection may benefit from Nucleic Acid Test (BASIL) for Hepatitis C Viral RNA to confirm Hepatitis C status. Blood BLOOD SPECIMEN / Unknown Lab Venipuncture / Unknown 04/03/2022 2:48 PM DICE SPOTTER 04/03/2022 3:02 PM DICE SPOTTER Juan Miranda MD LAB - CHEMISTRY ORDERABLES nal Result [facility] [address] [place] [address], [id number] [phone] from Last 3 Months or Most Recently Relevant to Health Maintenance Insurance [facility] MANAGED MEDICARE ADV PAYOR GENERIC Advance Directives * Full Code (Latest Code Status on File) Date Activated Date Inactivated Comments 05/31/2021 11:50 PM 06/04/2021 5:45 PM * Full Code Date Activated Date Inactivated Comments 04/29/2021 10:54 PM 05/16/2021 12:51 PM * Full Code Date Activated Date Inactivated Comments 03/25/2021 4:16 PM 03/27/2021 4:33 PM Care Teams Quality Control Clerk Relationship Specialty Start Date End Date Trish Hatch MD [address] [place] [address] PCP - General Family Medicine 04/08/23
--- OUTSIDE RECORDS SUMMARY | 2024-10-23 10:53 | XMS_ITS | Clinical Summary ---
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
[2024-10-23 11:00] VITALS: BP 134/61; PULSE 69; RESP 18; TEMP 37.2; O2SAT 98
[2024-10-23 11:24] LABS: EDCOVIDSCREEN Negative (Negative); EDINFLUASCREEN Negative (Negative); EDINFLUBSCREEN Negative (Negative); EDSTREPNEGPOS1 Negative (Negative)
== END 2024-10-23 11:27 | disposition home or self-care (01) ==
PROVIDERS: Emergency Provider Nurse Practitioner; PCP Family Medicine
DX: H66.91 Otitis media, unspecified, right ear (principal); J01.40 Acute pansinusitis, unspecified; Z20.822 Contact with and (suspected) exposure to COVID-19; I10 Essential (primary) hypertension; K70.30 Alcoholic cirrhosis of liver without ascites; J45.909 Unspecified asthma, uncomplicated; G62.9 Polyneuropathy, unspecified; G25.81 Restless legs syndrome; D69.6 Thrombocytopenia, unspecified; Z87.891 Personal history of nicotine dependence; F41.9 Anxiety disorder, unspecified
CPT/HCPCS: 87081; 87426; 87804; 87880; 99213; G0463

== ENCOUNTER 2025-03-04 17:32 | Emergency (ER) | payer MEDICARE, SELFPAY ==
--- OUTSIDE RECORDS SUMMARY | 2025-03-04 17:34 | XMS_ITS | Clinical Summary ---
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 [employer] Gender Identity Not on file Sexual Orientation Not on file Plan of Treatment Health Maintenance Due Date Last Done Comments TdaP Immunization 1965 Hepatitis B Immunization (1 of 3 - 19+ 3-dose series) 07/05/1986 Pap Smear 07/05/1988 Cervical Cancer Screening (CCS) 07/05/1997 HPV/Cotest 07/05/1997 Cologuard 07/05/2012 Colonoscopy 07/05/2012 Colorectal Cancer Screening 07/05/2012 Immunochemical Fecal Occult Blood 07/05/2012 Pneumococcal Immunization (5 0+ years) (1 of 1 - PCV) 07/05/2017 Zoster Immunization (1 of 2) 07/05/2017 Influenza Immunization (#1) 2024 SARS-COV-2 Immunization ( season) 2024 Respiratory Syncytial Virus (RSV) Immunization (Adult) (1 - 1-dose 75+ series) 07/05/2042 Hepatitis C Virus (HCV) Screening Completed 015 Human Papillomavirus (HPV) Immunization Aged Out No longer eligible b ased on patient's age to complete this topic Meningococcal Immunization (ACWY) Aged Out No longer [...]
--- OUTSIDE RECORDS SUMMARY | 2025-03-04 17:34 | XMS_ITS | Encounter Summary ---
Author Organization [facility] Address [address] [facility] [place] [address] Care Team Providers Care 411 Directory Assistance Operator Name Role Phone Trish Hatch MD Primary Care Provider [phone] Encounter Details Date Type Department Care Team (Late st Contact Info) Description 04/09/2024 Lab Requisition [facility] [address] [place] [address] Teresa Hunt MD [address] [place] [address] [place] [phone] Neoplasm of uncertain behavior of skin Social History Tobacco Use Types Packs/Day Years Used Date Smoking Tobacco: Former Cigarettes 0 Q uit: 04/30/2011 Smokeless Tobacco: Never Alcohol [...] on file 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 Gender Identity Not on file Sexual Orientation [...] Care Team (Late st Contact Info) Description 05/18/2025 8:40 AM FORENSIC ENGINEER Appointment [facility] [address] [place] [address] Juan Miranda MD [address] [place] [phone] 05/18/2025 9:30 AM FORENSIC ENGINEER Office Visit [facility] [address] [facility] [place] [address] Juan Miranda MD [address] [place] [phone] documented as of this encounter Goals Goal Patient Goal Type Associated Problems Recent Progress Patient-Stated? Author Medication Management General On track( 025 9:52 AM CDT) No Isabel Lopez, RN Note: Expected end date: ongoing Interventions: Take all medications as prescribed documented as of this encounter Procedures Procedure Name Priority Date/Time Associated Diagnosis Comments DERMATOPATHOLOGY Routine 04/09/2024 12:0 0 AM FORENSIC ENGINEER Neoplasm of uncertain behavior of skin documented in this encounter Results * DERMATOPATHOLOGY (04/09/2024 12:00 AM FORENSIC ENGINEER) Case Report Dermatopathology Report Case: [id number] Authorizing Provider: Teresa Hunt MD Collected: 04/09/2024 12:00 AM Ordering Location: [facility] - Received: 04/10/2024 12:53 PM DermPath Lab Pathologist: Doc Lima MD Specimen: Skin, right mid sikhism 1:16 PM FORENSIC ENGINEER DERMATOPATHOLOGY LABORATORY Final Diagnosis Specimen A. SKIN, right mid sikhism: ACTINIC KERATOSIS, PIGMENTED (L57.0) 4 1:16 PM [facility] DERMATOPATHOLOGY LABORATORY at [address] FORENSIC ENGINEER Clinical History Macular SK vs lentigo maligna vs lentigo 4 1:16 PM FORENSIC ENGINEER DERMATOPATHOLOGY LABORATORY Gross Description Specimen A: Received is one formalin filled container labeled with the patient's name and designated right mid sikhism. The specimen consists of a shave biopsy measuring 7x5x2 mm. Jar 0. 1:16 PM FORENSIC ENGINEER DERMATOPATHOLOGY LABORATORY Microscopic Description Specimen A. SKIN, right mid sikhism: There is alternating orthokeratosis and parakeratosis. Along the undersurface of the epidermis, there are buds of atypical keratinocytes in a disorderly arrangement. There is prominent pigmentation in some of the keratinocytes. 1:16 PM FORENSIC ENGINEER DERMATOPATHOLOGY LABORATORY Disclaimer An external and internal positive and negative controls are appropriate for the histochemical, immunohistochemical and immunofluorescence stain(s) in this case (if any), except where stated explicitly. The performance characteristics of the stain(s) cited in this report were developed and its performance characteristic determined by the Dermatopathology Laboratory at [facility], directed by Dr. Loren Lima. These tests need not be, and therefore are not, approved by the [place] Food and Drug Administration. The tests are used for clinical purposes. Billing Codes Specimen Charges Stain Charges 32326 1 4 1:16 PM FORENSIC ENGINEER DERMATOPATHOLOGY LABORATORY Embedded Images 4 1:16 PM FORENSIC ENGINEER DERMATOPATHOLOGY LABORATORY Pathology/Cytolog y TISSUE SPECIMEN FROM SKIN / Unknown 04/09/2024 04/10/2024 12:53 PM FORENSIC ENGINEER us Teresa Hunt MD LAB - PATHOLOGY/CYTOLOGY ORDERAB LES Final Result DERMATOPATHOLOGY LABORATORY [facility] - Department of Dermatology [facility] Medicine [address] [place] [address], [address] [phone] documented in this encounter Visit Diagnoses Diagnosis Neoplasm of uncertain behavior of skin documented in this encounter Care Teams 411 Directory Assistance Operator Relationship Specialty Start Date End Date Trish Hatch MD [address] [place] [address] PCP - General Family Medicine 04/08/23 documented as of this encounter
--- OUTSIDE RECORDS SUMMARY | 2025-03-04 17:35 | XMS_ITS | Clinical Summary ---
Author Organization [facility] Address [address] [place] [address] Care Team Providers Care Call Center Agent Name Role Phone Trish Hatch MD Primary Care Provider [phone] Source Comments [facility],non-owned Affiliates and Associated Physician Practices is amultiple site organization consisting of ambulatory clinics and hospital sitesin [place], [place], [place] and [place]. This disclosure is being madepursuant to the Care Everywhere program and may not contain all information available regarding this patient. Last updated 18.[facility] Allergies Active Allergy Reactions Criticality Noted Date Comments Codeine Nausea and/or Vomiting High 10/23/2024 vomiting Medications * Be aware that medications may [...] Patient not taking.Reason: Patient adjusted, Reported on 03/02/2025 furosemide (LASIX) 40 MG tablet Take 2 (two) tablets by mouth once daily 08/01/19 22 Active spironolactone (ALDACTONE) 100 MG tablet Take 2 (two) tablets by mouth once daily as needed 08/01/19 22 Active iron polysaccharides (NIFEREX 150) 150 MG capsule Take 1 (one) capsule by mouth once daily 07/17/19 22 Active escitalopram (Lexapro) 10 MG tablet Take 1 (one) tablet by mouth once daily 01/05/20 23 Active gabapentin (Neurontin) 300 MG capsule TAKE 1 CAPSULE BY MOUTH EVERY DAY AT BEDTIME 06/18/19 24 Active ipratropium (Atrovent) 0.03 % nasal spray [place] 1 spray into each nostril once daily as needed 12/18/19 24 Active diclofenac sodium (Voltaren) 1 % gel APPLY 2 GRAMS TOPICALLY TO WRIST FOUR TIMES DAILY NEEDED FOR PAIN 12/04/19 24 Active Probiotic Product (probiotic daily) capsule Take 1 (one) capsule by mouth once daily Active oxyCODONE, immediate release, (Roxicodone) 5 MG tabletIndications:P ost-op pain Take 1 (one) tablet by mouth every 6 hours as needed for Pain 15 tablet 05/15/19 25 Active Additional Information Patient not taking.Reason: Patient adjusted, Reported on 03/02/2025 acetaminophen (Tylenol) 500 MG tablet Take 1 (one) tablet by mouth every 6 hours as needed for Fever or Pain Maximum allowable Acetaminophen amount = 4 Grams (4000 mg) / 24 hours. 30 tablet 05/15/19 25 Active Hepatitis B, CpG-Adjuvanted Vaccine, Adult (Heplisav-B) 20 MCG/0.5ML (HepB-Cpg) Day 0 inject 0.5mL IM and then inject 0.5mL IM 4 weeks from dose 1 0.5 mL 1 07/16/19 25 Active Additional Information Patient not taking.Reported on 03/02/2025 pantoprazole EC (Protonix) 40 MG tablet Take [...] by mouth as needed 08/12/19 25 Active linaCLOtide (Linzess) 145 MCG capsule Take 1 (one) capsule by mouth daily before breakfast Take on an empty stomach at least 30 minutes prior to first meal of the day. Active metoclopramide (Reglan) 10 MG tablet Take by mouth once daily Active nadolol (Corgard) 20 MG tablet Take 1 (one) tablet by mouth once daily 30 tablet 11 01/08/20 026 Active buPROPion SR 12hr (Wellbutrin-SR) 150 MG tablet Take 1 (one) tablet by mouth 2 times daily Active EPINEPHrine (Epipen) 0.3 MG/0.3ML auto-injector pen Inject 0.3 mL into muscle as needed 09/06/19 25 Active traZODone (Desyrel) 100 MG tablet Take 1 (one) tablet by mouth nightly as needed Active traZODone (Desyrel) 50 MG tablet Take 1 (one) tablet by mouth nightly as needed 10/27/19 25 Active buPROPion XL 24hr (Wellbutrin-XL) 150 MG tablet Take 1 (one) tablet by mouth once daily 03/01/20 25 Active Linzess 72 MCG capsule Take 1 (one) capsule by mouth daily before breakfast 09/22/19 25 Active Active Problems Problem Noted Date [...] Encounters Date Type Department Care Team Description 03/02/2025 1:45 PM VARYING EXCEPTIONALITIES TEACHER Office Visit [facility] - ENT [address] [place] [phone] Anibal Hdz MD Nasal valve collapse (Primary Dx) 03/02/2025 Travel 01/18/2025 Results Follow-Up [facility] [address] [place] [address] Uyen Fulton MD 01/13/2025 10:00 AM CDT - 01/13/2025 11:00 AM CDT Surgery [facility] [address] [place] [address] Uyen Fulton MD Egd+EMR 01/13/2025 9:57 AM CDT Anesthesia Event [facility] [address] [place] [address] Rad Black MD Isabel, Kevin Batres, [facility] 01/13/2025 8:28 AM CDT - 01/13/2025 11:07 AM CDT Hospital Encounter [facility] [address] [place] [address] Uyen Fulton MD Surgery General Discharge Disposition: Home or Self Care 01/13/2025 Travel 01/07/2025 Refill [facility] - Nephrology [address] [place] [phone] Terra Ford, YESSICA Refill Request 01/04/2025 Telephone [facility] - GI [address] [place] [phone] Brayan Todd, YESSICA Appointment (procedure to confirm) from Last 3 Months Immunizations Immunization Administration Dates Next Due INFLUENZA VACCINE, TRIV. (AF LURIA, FLUZONE TRIVALENT; 6MO+) (IIV3) 01/23/2018 Covid [employer] primary monoval ent 12+ yr 0.3mL Purple cap 04/30/2021 FLU VACCINE TRI IIV3 SPLIT I M (FLUVIRIN) 01/11/2021 FLU VACCINE TRI IIV3 SPLIT P F IM (FLUVIRIN) 12/26/2022 HEP A VACCINE, ADULT 08/15/2021,01/03/2021 HEP B VACCINE 08/14/2024,,11/05/2022,2022 HEP B VACCINE, ADULT 3 DOSE 11/06/2023,0 04/23/2023,11/04/2022,2022,08/14/2021,02/23/2021,01/03/2021,0 12/05/2020 Hep B, Adjuvanted 08/14/2024,07/17/2024 INFLUENZA VACCINE 01/11/2021,01/11/2021 INFLUENZA VACCINE, CELL CULT URE, QUADR. (FLUCELVAX QUADRIVALENT; 6MO+) (CCIIV4) 01/28/2019 INFLUENZA VACCINE, CELL CULT URE, QUADR. (FLUCELVAX QUADRIVALENT; 6MO+), 0.5 ML (CCIIV4) 01/23/2018 INFLUENZA VACCINE, QUADR. (F LUZONE; FLULAVAL; FLUARIX; AFLURIA QUADRIVALENT; 6MO+), 0.5 ML (IIV4) 12/26/2022,12/01/2021,03/16/2020,2019 TDAP, HISTORIC VACCINE 01/10/2024,08/30/2021 ZOSTER VACCINE, LIVE 04/23/2023,10/05/2022,01/03 Zoster Hzv Vacc Recombinant Inj Im 01/03/2022, [...] on file Legal Sex Female 6:27 PM VARYING EXCEPTIONALITIES TEACHER Gender Identity Not on file Sexual Orientation Not on file Last Filed Vital Signs Vital Sign Reading Time Taken Comments Blood Pressure 120/80 03/02/2025 2:02 PM VARYING EXCEPTIONALITIES TEACHER Pulse 78 03/02/2025 2:02 PM VARYING EXCEPTIONALITIES TEACHER Temperature 36.2 C (97.2 F) 01/13/2025 10:27 AM CDT Respiratory Rate 24 01/13/2025 10:45 AM CDT Oxygen Saturation 97% 01/13/2025 11:00 AM CDT Inhaled Oxygen Concentration - - Weight 59.9 kg (132 lb) 03/02/2025 2:02 PM VARYING EXCEPTIONALITIES TEACHER Height 162.6 cm (5' 4) 03/02/2025 2:02 PM VARYING EXCEPTIONALITIES TEACHER Body Mass Index 22.66 03/02/2025 2:02 PM VARYING EXCEPTIONALITIES TEACHER Plan of Treatment Upcoming Encounters Date Type Department Care Team (Late st Contact Info) Description 05/18/2025 8:40 AM VARYING EXCEPTIONALITIES TEACHER Appointment [facility] [address] [place] [phone] Juan Miranda MD [address] [place] [phone] 05/18/2025 9:30 AM VARYING EXCEPTIONALITIES TEACHER Office Visit [facility] - GI [address] [place] [address], [place] [phone] Juan Miranda MD [address] [place] [phone] Health Maintenance Due Date Last Done Comments [...] 50+ (1 of 2 - PCV) 07/05/1986 Cervical Cancer Screening 07/05/1988 PAP SMEAR 07/05/1988 PAP with HPV 07/05/1997 DEPRESSION SCREENING 04/22/2024 01/22/2024 MEDICARE AWV CALENDAR YEAR 2024 COVID-19 VACCINE (2 - season) 2024 04/30/2021 INFLUENZA VACCINE (#1) 2024 , 12/26/2022, 12/01/2021, Additional history exists DTAP/TDAP/TD VACCINES (3 - Td or Tdap) 01/09/2034 01/10/2024, 08/30/2021 HEPATITIS C SCREENING Completed 04/03/2022 ZOSTER VACCINE Completed 04/23/2023, 09/20, 01/03/2022, Additional history exists HEPATITIS B VACCINE Completed 08/14/2024, 08/14/2024, 07/17/2024, Additional history exists HIB VACCINE Aged Out [...] track( 025 9:52 AM CDT) No Isabel Lopez RN Note: Expected end date: ongoing Interventions: Take all medications as prescribed Medical Devices Implanted Type Area Stuntman Device Identifier Shelf Expiration Date Model / Serial / Lot Screw 6.5mm 7.9mm 2.9mm 85mm P/T Rvrs Implanted:Qty: 3 on 03/25/2021 by Chad Vargas MD at [facility] Left: Leg [employer]sa [id number] / / Shell Actb 52mm Hip 3 Hl Poly R3 Std Implanted:Qty: 1 on 05/08/2021 by Edson Robbins MD at [facility] Left: Hip [employer] 11/22/2030 [id number] / / [id number] Screw 6.5mm 40mm Sphrcl Head Hip Actb Implanted:Qty: 1 on 05/08/2021 by Edson Robbins MD at [facility] Left: Hip [employer] 07/05/2030 [id number] / / [id number] Dual Mobility Liner Implanted:Qty: 1 on 05/08/2021 by Edson Robbins MD at [facility] Left: Hip [employer] 09/25/2030 [id number] / / [id number] Dual Mobility Insert Implanted:Qty: 1 on 05/08/2021 by Edson Robbins MD at [facility] Left: Hip [employer] 09/13/2030 [id number] / / [id number] Stem Standard With Ti/Valle Implanted:Qty: 1 on 05/08/2021 by Edson Robbins MD at [facility] Left: Hip [employer] 12/05/2027 [id number] / / [id number] Femoral Head Implanted:Qty: 1 on 05/08/2021 by Edson Robbins MD at [facility] Left: Hip [employer] 12/04/2030 [id number] / / [id number] Redapt Femoral Standard Offset Implanted:Qty: 1 on 06/02/2021 by Edson Robibns MD at [facility] Left: Hip [employer] 09/22/2029 [id number] / / [id number] Femoral Head Implanted:Qty: 1 on 06/02/2021 by Edson Robbins MD at [facility] Left: Hip [employer] 11/29/2029 [id number] / / [id number] Dual Mobility Insert Implanted:Qty: 1 on 06/02/2021 by Edson Robbins MD at [facility] Left: Hip [employer] 03/06/2030 [id number] / / [id number] Cable Orth Cocr 2mm 75mm Troch Clp Implanted:Qty: 1 on 06/02/2021 by Edson Robbins MD at [facility] Left: Hip [employer] 07/27/2030 [id number] / / [id number] Cable Orth Cocr 2mm 75mm Troch Clp Implanted:Qty: 1 on 06/02/2021 by Edson Robbins MD at [facility] Left: Hip [employer] 11/06/2028 [id number] / / [id number] Redapt Femoral Modular Sleeve Implanted:Qty: 1 on 06/02/2021 by Edson Robbins MD at [facility] Left: Hip [employer] 06/29/2030 [id number] / / [id number] Splnt Nsl Precut Ster - St Implanted:Qty: 1 on 05/15/2024 by Anibal Hdz MD at [facility] N/A: Nose [employer] 08/20/[id number] / / [id number] Explanted Type Area Stuntman Device Identifier Shelf Expiration Date Model / Serial / Lot Screw 6.5mm 7.9mm 2.9mm 80mm P/T Rvrs. Explanted:Qty: 1 on 03/25/2021 by Chad Vargas MD at [facility] Left: Leg [employer]sa [id number] / / Procedures Procedure Name Priority Date/Time Associated Diagnosis Comments PATHOLOGY TISSUE Routine 01/13/2025 10:1 4 AM CDT Gastric polyp VT ED EGD FLEX TRANSORAL DX 01/13/2025 9:52 AM CDT Gastric polyp EGD Routine 01/13/2025 9:40 AM CDT HEPATITIS C ANTIBODY Routine 04/03/2022 2:48 PM VARYING EXCEPTIONALITIES TEACHER Alcohol use disorder, severe, in sustained remission Encounter for screening for other viral diseases from Last 3 Months or Most Recently Relevant to Health Maintenance Results * PATHOLOGY TISSUE (01/13/2025 10:14 AM CDT) Case Report Surgical Pathology Report Case: [id number] Authorizing Provider: Uyen Fulton MD Collected: 01/13/2025 10:14 AM Ordering Location: [facility] Received: 01/13/2025 11:00 AM Pathologist: Allyson Zapien MD Specimen: Gastric, Gastric polyp x2.. r/o adenoma 01/14/2025 10:30 AM CDT [facility] Final Diagnosis Stomach,polyps, biopsy (A) - Hyperplastic polyps with erosion - Negative for dysplasia 01/14/2025 10:30 AM CDT [facility] at 1030 CDT Microscopic Description and Comment Microscopic examination substantiates the final diagnosis. 01/14/2025 10:30 AM CDT [facility] Clinical History Stomach polyps 01/14/2025 10:30 AM CDT [facility] Gross Description Received in formalin, labeled with the patient's name Na Brasher, specimen A, consists of a 1.6 x 0.9 x 0.6 cm red-pink variegated polypoid nodule which is inked at the base and bisected. The cut surfaces show red-pink homogenous tissue. The specimen is entirely submitted in a single cassette labeled A1. RB 01/14/2025 10:30 AM CDT [facility] Pathologist Location at [facility] 01/14/2025 10:30 AM CDT [facility] Disclaimer The performance characteristics of all immunohistochemical and indirect immunofluorescence stains (if any) cited in this report were determined by the Histopathology Laboratory of [facility]. Some of these tests were developed by our own laboratory and have not been cleared or approved by the US Food and Drug Administration. The FDA does not require this test to go through premarket FDA review. These tests are used for clinical purposes. They should not be regarded as investigational or for research. This laboratory is certified under the Clinical Laboratory Improvement Amendments (CLIA) as qualified to perform high complexity clinical laboratory testing. This case has been personally reviewed and interpreted by the attending (teaching) pathologist. 01/14/2025 10:30 AM CDT [facility] Embedded Images 01/14/2025 10:30 AM CDT [facility] Resection without Tumor GASTRIC CONTENTS SPECIMEN / Unknown 01/13/2025 10:14 AM CDT 01/13/2025 11:00 AM CDT Comment:Pre-op diagnosis: Gastric polyp [K31.7] us Uyen Fulton MD LAB - PATHOLOGY/CYTOLOGY ORDERA BLES Final Result [facility] [address] [phone] * EGD (01/13/2025 9:40 AM CDT) Report Endoscopy POC Endoscopy Department Report _ Patient Name: Na Brasher Procedure Date: 01/13/2025 9:40 AM Date of : 1965 Classification: Outpatient Gender: Female Ethnicity: Not or Race: White _ Providers: Uyen Fulton MD, Chris Ahuja (Fellow) Referring MD: Juan Miranda MD Procedure: Upper GI endoscopy Indications: Endoscopic removal of selected lesion in the stomach, Therapeutic procedure Medications: Monitored Anesthesia Care Description of Procedure: Pre-Anesthesia Assessment: - Prior to the procedure, a History and Physical was performed, and patient medications and allergies were reviewed. The patient's tolerance of previous anesthesia was also reviewed. The risks and benefits of the procedure and the sedation options and risks were discussed with the patient. All questions were answered, and informed consent was obtained. Prior Anticoagulants: The patient has taken no anticoagulant or antiplatelet agents. ASA Grade Assessment: III - A patient with severe systemic disease. After reviewing the risks and benefits, the patient was deemed in satisfactory condition to undergo the procedure. After obtaining informed consent, the endoscope was passed under direct vision. Throughout the procedure, the patient's blood pressure, pulse, and oxygen saturations were monitored continuously. The [id number] was introduced through the mouth, and advanced to the second part of duodenum. The upper GI endoscopy was accomplished without difficulty. The patient tolerated the procedure well. Findings: Small (< 5 mm) varices were found in the lower third of the esophagus. Mild portal hypertensive gastropathy was found in the entire examined stomach. At least five 5 to 15 mm sessile and semi-pedunculated polyps with no bleeding and no stigmata of recent bleeding were found in the gastric fundus, in the gastric body and in the gastric antrum. Preparations were made for mucosal resection of the largest two adjacent semi-pendunculat ed polyps in the mid gastric body measuring 10-15 mm. Demarcation of the lesions was performed with high-definition white light and narrow band imaging to clearly identify the boundaries of the lesion. Eleview + Epinephrine solution was injected to raise the lesions. Snare mucosal resection was performed. Resection and retrieval were complete. Resected tissue margins were examined and clear of polyp tissue. To prevent bleeding after the polypectomy, three hemostatic clips were successfully placed (MR conditional). 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 There was no bleeding during, or at the end, of the procedure. The first portion of the duodenum and second portion of the duodenum were normal. Estimated Blood Loss: Estimated blood loss: none. Complications: No immediate complications. Impression: - Small (< 5 mm) esophageal varices. - Portal hypertensive gastropathy. - Gastric polyps. Largest two measuring (10-15 mm) in the gastric body were resected and retrieved. Clips (MR conditional) were placed (x3). Clip gold leaf laborer: [employer]. - Normal first portion of the duodenum and second portion of the duodenum. - Mucosal resection was performed. Resection and retrieval were complete. Recommendation: - Discharge patient to home. - Resume previous diet. - Continue present medications. - Await pathology results. - Return to referring physician as previously scheduled. - Patient has a contact number available for emergencies. The signs and symptoms of potential delayed complications were discussed with the patient. Return to normal activities tomorrow. Written discharge instructions were provided to the patient. Attending Participation: I was present and participated during the entire procedure, including non-contreras portions. Procedure Code(s): --- Professional --- 18152, Esophagogastroduo denoscopy, flexible, transoral; with endoscopic mucosal resection Diagnosis Code(s): --- Professional --- I85.00, Esophageal varices without bleeding K76.6, Portal hypertension K31.89, Other diseases of stomach and duodenum K31.7, Polyp of stomach and duodenum K31.9, Disease of stomach and duodenum, unspecified CPT copyright 2021 [employer]. All rights reserved. The codes documented in this report are preliminary and upon assembler arranger review may be revised to meet current compliance requirements. Uyen Fulton MD 01/13/2025 10:23:01 AM This report has been signed electronically. Note Initiated On: 01/13/2025 9:40 AM Number of Addenda: [id number] [place] [address] 01/13/2025 9:40 AM CDT us Uyen Fulton MD GI PROCEDURE ORDERABLES Edited Result - Final [facility] * HEPATITIS C ANTIBODY (04/03/2022 2:48 PM VARYING EXCEPTIONALITIES TEACHER) Hepatitis C Antibody Non-react reese Non-reac tive 04/03/2022 4:41 PM VARYING EXCEPTIONALITIES TEACHER [facility] Comment:Hepatitis C Antibody screen indicates [...] Lab Venipuncture / Unknown 04/03/2022 2:48 PM VARYING EXCEPTIONALITIES TEACHER 04/03/2022 3:02 PM VARYING EXCEPTIONALITIES TEACHER Juan Miranda MD LAB - CHEMISTRY ORDERABLES Fi nal Result [address] [place] [address], [facility] [phone] from Last 3 Months or Most Recently Relevant to Health Maintenance Insurance [facility] MANAGED MEDICARE ADV PAYOR GENERIC Advance Directives * Full Code (Latest Code Status on File) Date Activated Date Inactivated Comments 05/31/2021 11:50 PM 06/04/2021 5:45 PM * Full Code Date Activated Date Inactivated Comments 04/29/2021 10:54 PM 05/16/2021 12:51 PM * Full Code Date Activated Date Inactivated Comments 03/25/2021 4:16 PM 03/27/2021 4:33 PM Care Teams Call Center Agent Relationship Specialty Start Date End Date Trish Hatch MD [address] [place] [address] PCP - General Family Medicine 04/08/23
[2025-03-04 17:45] VITALS: BP 108/71; PULSE 65; RESP 18; TEMP 37.1; O2SAT 97
--- NOTE | 2025-03-04 18:19 | ED_ITS ---
HPI - Extremity Injury (Lower) General Chief Complaint: Extremity Injury, Lower Stated Complaint: L Foot Time Seen by Provider: 03/04/25 17:50 Source: patient and RN notes reviewed Mode of arrival: ambulatory Limitations: no limitations History of Present Illness HPI Narrative: 59-year-old female patient with history of alcoholism, peripheral neuropathy, and cirrhosis complains of pain and redness to the dorsum of the left foot x5 days. Denies injury or trauma. She currently rates her pain 7/10 with no OTC treatment prior to arrival. No history of gout, recent illness, recent active bleeding, shortness of breath, chest pain, history of DVT or PE. Denies numbness or tingling of the foot over baseline. Related Data Home Medications ?Medication ?Instructions ?Recorded ?Confirmed ?Last Taken ?Type timolol 0.5 %-dorzolamide 2 1 drp ophthalmic (eye) ANDREW LY 09/12/20 03/01/25 09/27/20 History %-latanprost 0.005 % (PF) eye drops nadolol 20 mg tablet 20 mg PO DAILY 05/22/2202/20 Unknown History Allergies Allergy/AdvReac Type Severity Reaction Status Date / Time codeine AdvReac Intermediate Nausea and Verified 03/04/25 17:45 Vomiting PMFSH Past Medical History Medical History Osteoporosis Arthritis Anemia Vitamin D deficiency Lumbar radiculopathy, chronic Liver disease due to alcohol Iron deficiency anemia due to chronic blood loss Benign hypertension Alcoholism, chronic Irritable bowel syndrome with constipation Lower abdominal tenderness Epigastric abdominal pain Dysphagia Gas bloat syndrome Colon cancer screening Sacroiliitis Encounter for immunization Hepatic insufficiency Colon cancer screening Cirrhosis, alcoholic Hiatal hernia Chronic anemia Thrombocytopenia Esophageal varices (~07/2019) Status post band ligation in July 2019. Nonbleeding varices on EGD in September 2019. Alcoholism Asthma Anxiety Peripheral neuropathy Restless leg syndrome Upper gastrointestinal hemorrhage (~07/2019) Esophageal varices bleeding, status post band ligation. Hypertension Surgical History Surgical History H/O dilation and curettage History of rhinoplasty History of nasal septoplasty History of left hip replacement History of endoscopy (~07/2019) Band ligation of esophageal varices. History of hand surgery ORIF left hand fracture with hardware. History of tonsillectomy Family History Family History Father Family history of cardiovascular disease Hypertension Cancer CHF (congestive heart failure) Alcoholism Heart disease Mother Brain cancer Skin cancer Grandparent Hypertension Depression Grandparent Alcoholism Heart disease Social History Social History Social History: The patient is and lives with her in [place]. 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 She smoked for short period of time many years ago. No illicit substance use. She designates her Gulshan as her surrogate decision maker and wishes to be a full code. Smoking packs per day: 0.25 Smoking cigarettes per day: 5.0 Years smoked: 10 Smoking pack-years: 2.50 Smoking status: Former smoker Tobacco type: cigarettes Second hand tobacco smoke exposure: No Smoking end date: 11/17/13 Additional smoking assessment comments: social smoker Alcohol intake: former Alcohol use details: Alcohol Abuse Substance use: never Substance use type: does not use Current Housing: Decline to Answer Concerned About Future Housing: Decline to Answer Difficulty Paying Gas/Electric Bills: Decline to Answer Difficulty Paying for Meds: Decline to Answer Currently Unemployed: Decline to Answer Education: Decline to Answer Difficulty w/ Childcare or Family Care: Decline to Answer Living arrangements: with family Occupation/Education: occupation 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 Please see nursing chart for further information. There is no relevant family history pertinent to the presenting complaint Exam Narrative: GENERAL: Chronically ill-appearing, well-nourished, and in no acute distress. HEAD: Normocephalic, atraumatic. EYES: EOMI. No redness or drainage. Conjunctivae normal. ENT: Mucous membranes pink and moist. NECK: Normal AROM. CHEST: No respiratory distress. Clear to auscultation. HEART: Regular rate and rhythm. No murmur appreciated. Normal peripheral pulses. EXTREMITIES:Left leg: Tiny petechial rash over the distal half the lower leg that is mildly tender to palpation. No swelling of the leg. Varicose veins present. Ankle is nontender and without rash, ecchymosis, erythema, or edema. Mild erythema to the dorsum of the foot at the distal midfoot area, did not include the 1st MTP. This area is TTP. No edema to the foot. 5th toe has minimal sensation. Remainder of the toes have no sensation. This is baseline for patient. Full AROM of toes and ankle. Pedal pulse normal. -homans. SKIN: Warm, dry, no rash. Capillary refill normal. Normal skin turgor. NEURO: No focal deficits. Alert and oriented x3. Gait steady. PSYCH: Normal affect. No signs of depression or anxiety. Course Course Level of Care: Express Care Visit Vital Signs Vital signs: Vital Signs Temperature 98.7 F 03/04/25 17:45 Pulse Rate 65 03/04/25 17:45 Respiratory Rate 18 03/04/25 17:45 Blood Pressure 108/71 03/04/25 17:45 Pulse Oximetry 97 03/04/25 17:45 Oxygen Delivery Room Air 03/04/25 17:45 Temperature 98.7 F 03/04/25 17:45 Pulse Rate 65 03/04/25 17:45 Respiratory Rate 18 03/04/25 17:45 Blood Pressure 108/71 03/04/25 17:45 Pulse Oximetry 97 03/04/25 17:45 Oxygen Delivery Room Air 03/04/25 17:45 reviewed. MDM - Extremity Injury (Lower) MDM Narrative Medical decision making narrative: 59-year-old female patient with history of alcoholism, peripheral neuropathy, and cirrhosis complains of pain and redness to the dorsum of the left foot x5 d ays. Denies injury or trauma. She currently rates her pain 7/10 with no OTC treatment prior to arrival. No history of gout, recent illness, recent active bleeding, shortness of breath, chest pain, history of DVT or PE. Denies numbness or tingling of the foot over baseline. Upon exam, Tiny non blanchable, petechial rash over the distal half the lower leg that is mildly tender to palpation. No swelling of the leg. Varicose veins present. Ankle is nontender and without rash, ecchymosis, erythema, or edema. Mild erythema to the dorsum of the foot at the distal midfoot area, did not include the 1st MTP. This area is TTP. No edema to the foot. 5th toe has minimal sensation. Remainder of the toes have no sensation. This is baseline for patient. Full AROM of toes and ankle. Pedal pulse normal. -shantel. 181- Consulted collaborating physician, Dr. Pfeiffer. After detailed discussion, will place patient on a course of cephalexin for cellulitis and patient will monitor the petechiae closely for any changes. Plan for discharge: Patient discharged with Rx for cephalexin for presumed cellulitis of the dorsum of the left foot. Patient has been instructed to follow up with her PCP in 3 days if these symptoms are not improving. She has also been given instructions to monitor the petechial rash on the lower leg for any changes. If any spread, darkening, or if she develops any active bleeding such as from the gums or nose, she is to proceed to the ER or contact her PCP immediately. Patient agrees with plan. VSS. Differential Diagnosis Differential diagnosis: Likely other (gout, cellulitis, bleeding, coagulapathy, anemia) Critical Care Time Critical Care Time Critical Care Time: No Discharge Plan Discharge Clinical Impression: Cellulitis of foot, left Patient Disposition: Home Condition: Stable Instructions: Antibiotic Form, Cellulitis (ED) Additional Instructions: Please take the Keflex as prescribed until gone. As discussed, if by Saturday your symptoms are not improving, please follow-up with your PCP. If symptoms worsen please go to the ER. If the rash on your leg worsens to a darker color, spreads, or if you notice any active bleeding such as bleeding from your gums, nose bleed, please go to the ER immediately or contact your PCP. Patient Language: Palestinian Prescriptions: New cephalexin 500 mg capsule 500 mg PO Q6H 7 Days Qty: 28 0RF No Action yqvyzwq-nsqfdvwezq-ftcevtb(PF) 0.5-2-0.005 % drops 1 drp ophthalmic (eye) DAILY bupropion HCl [Wellbutrin XL] 150 mg tablet extended release 24 hr 150 mg PO QAM Qty: 30 3RF nadolol 20 mg tablet 20 mg PO DAILY pantoprazole 40 mg tablet,delayed release (DR/EC) See Rx Instructions .ROUTE .COMPLEX Qty: 180 3RF Dose Instruction: TAKE 1 TABLET BY MOUTH EVERY 12 HOURS Rx Instructions: TAKE 1 TABLET BY MOUTH EVERY 12 HOURS (DME) Hepatitis B See Rx Instructions .Route .MEDSUPPLY Qty: 1 0RF Rx Instructions: As directed for 3rd injection Pulmicort Flexhaler 90 mcg/actuation aerosol powdr breath activated 1 inh inhalation Q12H Qty: 1 0RF Linzess 145 mcg capsule 145 mcg PO DAILY Qty: 90 3RF escitalopram oxalate [Lexapro] 10 mg tablet 10 mg PO DAILY Qty: 90 3RF gabapentin 300 mg capsule 600 mg PO BID Qty: 360 1RF trazodone 100 mg tablet 100 mg PO QHS PRN (Reason: insomnia) Qty: 30 5RF metoclopramide HCl [Reglan] 10 mg tablet 10 mg PO .am Qty: 30 3RF furosemide 40 mg tablet See Rx Instructions .ROUTE .COMPLEX Qty: 60 5RF Dose Instruction: TAKE 2 TABLETS BY MOUTH EVERY MORNING Rx Instructions: TAKE 2 TABLETS BY MOUTH EVERY MORNING albuterol sulfate [Ventolin HFA] 90 mcg/actuation HFA aerosol inhaler 2 puff INHALATION Q4-6H PRN (Reason: Shortness Of Breath Or Wheezing) Qty: 3 3RF Follow-up/Referrals: Holden,MD Trish [Primary Care Provider, Family Practice] Time of Disposition: 18:18
== END 2025-03-04 18:19 | disposition home or self-care (01) ==
PROVIDERS: Emergency Provider Nurse Practitioner; PCP Family Medicine
DX: L03.116 Cellulitis of left lower limb (principal); K70.30 Alcoholic cirrhosis of liver without ascites; I10 Essential (primary) hypertension; G62.9 Polyneuropathy, unspecified; M81.0 Age-related osteoporosis without current pathological fracture; M19.90 Unspecified osteoarthritis, unspecified site; J45.909 Unspecified asthma, uncomplicated; F41.9 Anxiety disorder, unspecified; G25.81 Restless legs syndrome; Z96.642 Presence of left artificial hip joint; Z87.891 Personal history of nicotine dependence
CPT/HCPCS: 99213; G0463

== ENCOUNTER 2025-03-25 08:28 | Outpatient (CLI) | payer MEDICARE, SELFPAY ==
--- NOTE | ~2025-03-25 | NM_ITS ---
EXAM: NM gastric emptying study DATE: 03/25/2025 13:17 CHUCKING MACHINE OPERATOR INDICATION: Abdominal bloating, nausea and early satiety TECHNIQUE: A gastric emptying study was performed using the methodology of Elif GRANDA, et al. J Nucl Med 2007; 48:568-572. The patient was given a meal consisting of 2 scrambled eggs labeled with 1 mCi Tc-99m sulfur colloid, 2 slices of toast, two packages of jam, and approximately 120 mL of water. Si multaneous anterior and posterior 1-min images of the abdomen were obtained with the patient supine at multiple time points over a total period of 4 hours. The geometric mean of anterior and posterior views was determined, and the percentage retention was calculated for each time point. COMPARISON: None. FINDINGS: Gastric retention of the radiotracer-labeled meal was 75%, 61%, and 17% at the 1-hour, 2-hour, and 4-hour time points, respectively. With this technique, apparent rapid gastric emptying is suggested by <30% gastric retention at 1 hour. Delayed gastric emptying is defined by gastric retention of >90% at 1 hour, >60% retention at 2 hours, or >10% retention at 4 hours. IMPRESSION: 1. Delayed gastric emptying. Reviewed, dictated and finalized at location I. KING MACHINE OPERATOR
--- OUTSIDE RECORDS SUMMARY | 2025-03-25 08:44 | XMS_ITS | Encounter Summary ---
Author Organization [facility] Health Address [address] [place] [address] Care Team Providers Care Brush Maker Machine Name Role Phone Trish Hatch MD Primary Care Provider [phone] Encounter Details Date Type Department Care Team (Late st Contact Info) Description 04/09/2024 Lab Requisition [facility] DermPath Lab [address] [place] [address] Teresa Hunt MD [address] [place] [address] [place] [address] Neoplasm of uncertain behavior of skin [...] on file Legal Sex Female 6:27 PM CPO Gender Identity Not on file Sexual Orientation [...] st Contact Info) Description 05/18/2025 8:40 AM CPO Appointment [facility] SCAN [address] [place] [address] Juan Miranda MD [address] [place] [phone] 05/18/2025 9:30 AM CPO Office Visit [facility] - GI [address] [facility] [place] [address] Juan Miranda MD [address] [place] [phone] documented as of this encounter Goals Goal Patient Goal Type Associated Problems Recent Progress Patient-Stated? Author Medication Management General On track( 025 9:52 AM CDT) No Isabel Lopez, RN Note: Expected end date: ongoing Interventions: Take all medications as prescribed documented as of this encounter Procedures Procedure Name Priority Date/Time Associated Diagnosis Comments DERMATOPATHOLOGY Routine 04/09/2024 12:0 0 AM CPO Neoplasm of uncertain behavior of skin documented in this encounter Results * DERMATOPATHOLOGY (04/09/2024 12:00 AM CPO) Case Report Dermatopathology Report Case: [id number] Authorizing Provider: Teresa Hunt MD Collected: 04/09/2024 12:00 AM Ordering Location: [facility] - Received: 04/10/2024 12:53 PM DermPath Lab Pathologist: Doc Lima MD Specimen: Skin, right mid bahai 1:16 PM CPO DERMATOPATHOLOGY LABORATORY Final Diagnosis Specimen A. SKIN, right mid bahai: ACTINIC KERATOSIS, PIGMENTED (L57.0) 4 1:16 PM [facility] DERMATOPATHOLOGY LABORATORY at 1316 CPO Clinical History Macular SK vs lentigo maligna vs lentigo 4 1:16 PM CPO DERMATOPATHOLOGY LABORATORY Gross Description Specimen A: Received is one formalin filled container labeled with the patient's name and designated right mid bahai. The specimen consists of a shave biopsy measuring 7x5x2 mm. Jar 0. 1:16 PM CPO DERMATOPATHOLOGY LABORATORY Microscopic Description Specimen A. SKIN, right mid bahai: There is alternating orthokeratosis and parakeratosis. Along the undersurface of the epidermis, there are buds of atypical keratinocytes in a disorderly arrangement. There is prominent pigmentation in some of the keratinocytes. 1:16 PM CPO DERMATOPATHOLOGY LABORATORY Disclaimer An external and internal positive and negative controls are appropriate for the histochemical, immunohistochemical and immunofluorescence stain(s) in this case (if any), except where stated explicitly. The performance characteristics of the stain(s) cited in this report were developed and its performance characteristic determined by the Dermatopathology Laboratory at [facility], directed by Dr. Loren Lima. These tests need not be, and therefore are not, approved by the [place] Food and Drug Administration. The tests are used for clinical purposes. Billing Codes Specimen Charges Stain Charges 77764 1 4 1:16 PM CPO DERMATOPATHOLOGY LABORATORY Embedded Images 4 1:16 PM CPO DERMATOPATHOLOGY LABORATORY Pathology/Cytolog y TISSUE SPECIMEN FROM SKIN / Unknown 04/09/2024 04/10/2024 12:53 PM CPO us Teresa Hunt MD LAB - PATHOLOGY/CYTOLOGY ORDERAB LES Final Result DERMATOPATHOLOGY LABORATORY [facility] - Department of Dermatology [facility] Medicine [address] [place] [address], [address] [phone] documented in this encounter Visit Diagnoses Diagnosis Neoplasm of uncertain behavior of skin documented in this encounter Care Teams Brush Maker Machine Relationship Specialty Start Date End Date Trish Hatch MD [address] [place] [address] PCP - General Family Medicine 04/08/23 documented as of this encounter
--- OUTSIDE RECORDS SUMMARY | 2025-03-25 08:44 | XMS_ITS | Clinical Summary ---
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
--- OUTSIDE RECORDS SUMMARY | 2025-03-25 08:44 | XMS_ITS | Clinical Summary ---
Author Organization [facility] Address [address] [place] [address] Care Team Providers Care Local Combination Truck Driver Name Role Phone Trish Hatch MD Primary Care Provider [phone] Allergies Active Allergy Reactions Criticality Noted Date Comments Codeine Nausea & Vomiting High 10/23/2024 vomiting Medications albuterol HFA (PROVENTIL HFA,VENTOLIN HFA,PROAIR HFA) 90 mcg/actuation inhaler Inhale 1 puff every 4 (four) hours as needed for shortness of breath or wheezing Active budesonide-form oteroL (SYMBICORT) 80-4.5 mcg/actuation inhaler Inhale 2 puffs as needed 5 Active cyanocobalamin (Vitamin B-12) 1,000 mcg tablet Take 1 tablet (1,000 mcg total) by mouth daily Active diclofenac sodium (VOLTAREN) 1 % gel Apply 2 g topically 4 (four) times a day 4 Active EPINEPHrine 0.3 mg/0.3 mL auto-injection syringe Inject 0.3 mL (0.3 mg total) into the muscle as instructed as needed for anaphylaxis 5 Active escitalopram (LEXAPRO) 10 mg tablet Take 1 tablet (10 mg total) by mouth trans router before breakfast 3 Active folic acid (FOLVITE) 400 mcg tablet Take 1 tablet (0.4 mg total) by mouth daily 1 Active furosemide (LASIX) 40 mg tablet Take 2 tablets (80 mg total) by mouth every morning Active gabapentin (NEURONTIN) 300 mg capsule Take 1 capsule (300 mg total) by mouth 2 (two) times a day 4 Active ipratropium (ATROVENT) 21 mcg (0.03 %) nasal spray Administer 1 spray into affected nostril(s) daily as needed 4 Active L. acidophilus/Bif id. animalis 32 billion cell capsule Take 1 capsule by mouth daily Active linaCLOtide (LINZESS) 145 mcg capsule Take 1 capsule (145 mcg total) by mouth daily before breakfast 5 Active latanoprost (XALATAN) 0.005 % ophthalmic solution Administer 1 drop into affected eye(s) nightly 1 Active metoclopramide (REGLAN) 10 mg tabletIndicatio ns:gastroesopha geal reflux disease Take 1 tablet (10 mg total) by mouth every morning Active nadoloL (CORGARD) 20 mg tabletIndicatio ns:Prevention of Bleeding Esophageal Varices Take 1 tablet (20 mg total) by mouth daily Active pantoprazole DR (PROTONIX) 40 mg EC tablet Take 1 tablet (40 mg total) by mouth 2 (two) times a day 1 Active spironolactone (ALDACTONE) 100 mg tablet Take 2 tablets (200 mg total) by mouth daily as needed 2 Active BD Insulin Syringe, half unit, 0.3 mL 31 gauge x 5/16 syringe INJECT 2 SYRINGES UNDER THE SKIN TWICE A WEEK DIRECTED 5 Active traZODone (DESYREL) 100 mg tablet Take 1 tablet (100 mg total) by mouth nightly as needed for sleep 5 Active oxyCODONE (ROXICODONE) 5 mg immediate release tablet Take 1 tablet (5 mg total) by mouth every 6 (six) hours as needed 5 Active acetaminophen (TYLENOL) 500 mg tablet Take 2 tablets (1,000 mg total) by mouth every 6 (six) hours as needed for pain Active Active Problems Problem Noted Date Diagnosed Date Arthritis of carpometacarpal (CMC) joint of righ t thumb 02/11/2025 Abdominal pain 12/15/2024 Acute right otitis media 12/15/2024 Age related osteoporosis 12/15/2024 Alcohol withdrawal 12/15/2024 Alcoholism 12/15/2024 Allergies 12/15/2024 Anxiety 12/15/2024 Ascites 12/15/2024 Asthma 12/15/2024 Bulimia 12/15/2024 Cirrhosis of liver 12/15/2024 Constipation 12/15/2024 Dysphagia 12/15/2024 Early satiety 12/15/2024 Elevated LFTs 12/15/2024 Epigastric abdominal pain 12/15/2024 Esophageal varices 12/15/2024 Overview (12/15/2024): Status post band ligation in July 2019. Nonbleeding varices on EGD in September 2019. Fatigue 12/15/2024 Gastric polyp 12/15/2024 Gastroesophageal reflux disease 12/15/2024 Hearing loss, bilateral 12/15/2024 Hepatic insufficiency 12/15/2024 Hypertrophy of both inferior nasal turbinates Hypomagnesemia 12/15/2024 Left leg swelling 12/15/2024 Left-sided epistaxis 12/15/2024 Abdominal bloating 12/15/2024 Nasal folliculitis 12/15/2024 Osteoarthritis of carpometacarpal joint of right thumb 12/15/2024 Wrist pain 12/15/2024 Upper gastrointestinal hemorrhage 12/15/2024 Overview (12/15/2024): Esophageal varices bleeding, status post band ligation. Umbilical hernia 12/15/2024 Thrombocytopenia 12/15/2024 Sinusitis 12/15/2024 Sacroiliitis 12/15/2024 Restless leg syndrome 12/15/2024 Portal hypertension 12/15/2024 Peripheral neuropathy 12/15/2024 Osteopenia of spine 12/15/2024 Iliopsoas bursitis of left hip 02/20/2023 Status post left hip replacement 02/20/2023 Alcohol use disorder, severe, in sustained remis regina 08/12/2021 Alcoholic cirrhosis 08/12/2021 Esophageal varices in alcoholic cirrhosis 2021 Chronic anemia 03/25/2021 Closed displaced fracture of styloid process of left ulna 03/25/2021 Closed displaced fracture of styloid process of right radius 03/25/2021 Closed fracture of neck of left femur 03/25/2021 Fall 03/25/2021 Hypertension 09/16/2013 Surgical History Surgery Date Site/Laterality Comments HIP ARTHROPLASTY 04/22/2020 - 04/21/2021 Left HAND ARTHROPLASTY 04/22/2011 - 04/21/2012 Left COLONOSCOPY 04/22/2020 - 04/21/2021 N/A DILATION AND CURETTAGE OF UTERUS 04/22/2015 - 04/21/2016 N/A Social History Tobacco Use Types Packs/Day Years Used Date Smoking Tobacco: Former Cigarettes 0.2 6 2 004 - 2010 Passive Smoke Exposure: Never Smokeless Tobacco: Never Tobacco Cessation:Counseling Given: Not Answered Alcohol Use Standard Drinks/Week Comments Never 0 (1 standard drink = 0.6 oz pur e alcohol) AUDIT-C Answer Date Recorded Q1: How often do you have a drink containing alcohol? Never 03/23/2025 Q2: How many drinks containi ng alcohol do you have on a typical day when you are drinking? Patient does not drink Q3: How often do you have si x or more drinks on one occasion? Never 03/23/2025 Comments No Sex and Gender Information Value Date Recorded Sex Assigned at Not on file Legal Sex Female 10:10 PM WEB DESIGN INSTRUCTOR Gender Identity Female 12/23/2024 8:17 PM CDT Sexual Orientation Not on file Last Filed Vital Signs Vital Sign Reading Time Taken Comments Blood Pressure - - Pulse - - Temperature - - Respiratory Rate - - Oxygen Saturation - - Inhaled Oxygen Concentration - - Weight 59 kg (130 lb) 03/23/2025 3:08 PM WEB DESIGN INSTRUCTOR Height 162.6 cm (5' 4) 03/23/2025 3:08 PM WEB DESIGN INSTRUCTOR Body Mass Index 22.31 03/23/2025 3:08 PM WEB DESIGN INSTRUCTOR Plan of Treatment Upcoming Encounters Date Type Department Care Team (Latest Contact Info) Description 03/31/2025 2:30 PM WEB DESIGN INSTRUCTOR Hospital Encounter [facility] [place] [address] [place] [address] [place] [address] /[address] [place] [address] 03/31/2025 2:30 PM WEB DESIGN INSTRUCTOR - 03/31/2025 4:25 PM WEB DESIGN INSTRUCTOR Surgery [facility] [address] [place] [address] Daryl Cervantes MD [address] [facility] [address] [place] [address] EXCISION WITH TENDON TRANSFER/STABILIZAT ION - TRAPEZIUM Scheduled Procedures Name Priority Associated Diagnoses Date/Ti me EXCISION WITH TENDON TRANSFER/STABILIZATION - TRAPEZIUM Arthritis of carpometacarpal (CMC) joint of right thumb 03/31/2025 2:30 PM WEB DESIGN INSTRUCTOR Health Maintenance Due Date Last Done Comments Breast Cancer Screening-Mammogram 1967 Cervical Cancer Screening 1967 Colon Cancer Screening-Colonoscopy 1967 Depression Screening 1967 Hepatitis C Screening 1967 Regular Well Visit/Exam 18-64 07/05/1985 Covid-19 Vaccine (2 - 2024-2 6 season) 2024 04/30/2021 Influenza Vaccine (#1) 2024 , 12/01/2021, 01/11/2021, Additional history exists DTaP/Tdap/Td Vaccine (3 - Td or Tdap) 01/09/2034 01/10/2024, 08/30/2021 Zoster Vaccine Completed 04/23/2023, 09/20, 01/03/2022, Additional history exists Pneumococcal vaccine <65 Completed 12/09/2024 Insurance [facility] MEDICARE ADVANTAGE [employer] MEDICARE ADVANTAGE Care Teams Local Combination Truck Driver Relationship Specialty Start Date End Date Trish Hatch MD PCP - General Family Medicine 09/17/24
--- OUTSIDE RECORDS SUMMARY | 2025-03-25 08:45 | XMS_ITS | Clinical Summary ---
Author Organization [facility] Address [address] [place] [address] Care Team Providers Care Volunteer Coordinator Name Role Phone Trish Hatch MD Primary Care Provider [phone] Source Comments [facility] [place],non-owned Affiliates and Associated Physician Practices is amultiple site organization consisting of ambulatory clinics and hospital sitesin [place], [place], [place] and [place]. This disclosure is being madepursuant to the Care Everywhere program and may not contain all information available regarding this patient. Last updated 18.[facility] [place] Allergies Active Allergy Reactions Criticality Noted Date [...] Active ipratropium (Atrovent) 0.03 % nasal spray Stanton 1 spray into each nostril once daily [...] Department Care Team Description 03/02/2025 1:45 PM BLAST SETTER Office Visit [facility] - ENT [address] [place] [phone] Anibal Hdz MD Nasal valve collapse (Primary Dx) 03/02/2025 Travel 01/18/2025 Results Follow-Up [facility] [address] [place] [address] Uyen Fulton MD 01/13/2025 10:00 AM CDT - 01/13/2025 11:00 AM CDT Surgery [facility] [address] [place] [address] Uyen Fulton MD Egd+EMR 01/13/2025 9:57 AM CDT Anesthesia Event [facility] [address] [place] [address] Rad Black MD Isabel, Kevin Batres, [facility] 01/13/2025 8:28 AM CDT - 01/13/2025 11:07 AM CDT Hospital Encounter [facility] [address] [place] [address] Uyen Fulton MD Surgery General Discharge Disposition: Home or Self Care 01/13/2025 Travel 01/07/2025 Refill [facility] - Nephrology [address] [place] [phone] Terra Ford, YESSICA Refill Request 01/04/2025 Telephone [facility] - GI [address] [place] [phone] Brayan Todd, YESSICA Appointment (procedure to confirm) from Last 3 Months Immunizations Immunization Administration Dates Next Due INFLUENZA VACCINE, TRIV. (AF LURIA, FLUZONE TRIVALENT; 6MO+) (IIV3) 01/23/2018 Covid [employer] primary monoval ent 12+ yr 0.3mL Purple [...] on file Legal Sex Female 6:27 PM BLAST SETTER Gender Identity Not on file Sexual Orientation Not on file Last Filed Vital Signs Vital Sign Reading Time Taken Comments Blood Pressure 120/80 03/02/2025 2:02 PM BLAST SETTER Pulse 78 03/02/2025 2:02 PM BLAST SETTER Temperature 36.2 C (97.2 F) 01/13/2025 10:27 AM CDT Respiratory Rate 24 01/13/2025 10:45 AM CDT Oxygen Saturation 97% 01/13/2025 11:00 AM CDT Inhaled Oxygen Concentration - - Weight 59.9 kg (132 lb) 03/02/2025 2:02 PM BLAST SETTER Height 162.6 cm (5' 4) 03/02/2025 2:02 PM BLAST SETTER Body Mass Index 22.66 03/02/2025 2:02 PM BLAST SETTER Plan of Treatment Upcoming Encounters Date Type Department Care Team (Late st Contact Info) Description 05/18/2025 8:40 AM BLAST SETTER Appointment [facility] CAT SCAN [address] [place] [phone] Juan Miranda MD [address] [place] [phone] 05/18/2025 9:30 AM BLAST SETTER Office Visit [facility] - GI [address] [place] [address], [place] [phone] Juan Miranda MD [address] [place] [phone] Health Maintenance Due Date Last Done Comments [...] as prescribed Medical Devices Implanted Type Area Distributor Cleaner Device Identifier Shelf Expiration Date Model / Serial / Lot Screw 6.5mm 7.9mm 2.9mm 85mm P/T Rvrs Implanted:Qty: 3 on 03/25/2021 by Chad Vargas MD at [facility] Left: Leg [employer] [id number] / / Shell Actb 52mm Hip 3 Hl Poly R3 Std Implanted:Qty: 1 on 05/08/2021 by Edson Robbins MD at [facility] Left: Hip [employer] 11/22/2030 [id number] / / [id number] Screw 6.5mm 40mm Sphrcl Head Hip Actb Implanted:Qty: 1 on 05/08/2021 by Edson Robbins MD at [facility] Left: Hip [employer] 07/05/2030 [id number] / / [id number] Dual Mobility Liner Implanted:Qty: 1 on 05/08/2021 by Edson Robbins MD at [facility] Left: Hip [employer] 09/25/2030 [id number] / / [id number] Dual Mobility Insert Implanted:Qty: 1 on 05/08/2021 by Edson Robbins MD at [facility] Left: Hip [employer] 09/13/2030 [id number] / / [id number] Stem Standard With Ti/Valle Implanted:Qty: 1 on 05/08/2021 by Edson Robbins MD at [facility] Left: Hip [employer] 12/05/2027 [id number] / / [id number] Femoral Head Implanted:Qty: 1 on 05/08/2021 by Edson Robbins MD at [facility] Left: Hip [employer] 12/04/2030 [id number] / / [id number] Redapt Femoral Standard Offset Implanted:Qty: 1 on 06/02/2021 by Edson Robbins MD at [facility] Left: Hip [employer] 09/22/2029 [id number] / / [id number] Femoral Head Implanted:Qty: 1 on 06/02/2021 by Edson Robbins MD at [facility] Left: Hip [employer] 11/29/2029 [id number] / / [id number] Dual Mobility Insert Implanted:Qty: 1 on 06/02/2021 by Edson Robbins MD at [facility] Left: Hip [employer] 03/06/2030 [id number] / / [id number] Cable Orth Cocr 2mm 75mm Troch Clp Implanted:Qty: 1 on 06/02/2021 by Edson Robbins MD at [facility] Left: Hip [employer] 07/27/2030 [id number] / / [id number] Cable Orth Cocr 2mm 75mm Troch Clp Implanted:Qty: 1 on 06/02/2021 by Edson Robbins MD at [facility] Left: Hip [employer] 11/06/2028 [id number] / / [id number] Redapt Femoral Modular Sleeve Implanted:Qty: 1 on 06/02/2021 by Edson Robbins MD at [facility] Left: Hip [employer] 06/29/2030 [id number] / / [id number] Splnt Nsl Precut Ster - St Implanted:Qty: 1 on 05/15/2024 by Anibal Hdz MD at [facility] N/A: Nose [employer] 08/20/[id number] / / [id number] Explanted Type Area Distributor Cleaner Device Identifier Shelf Expiration Date Model / Serial / Lot Screw 6.5mm 7.9mm 2.9mm 80mm P/T Rvrs. Explanted:Qty: 1 on 03/25/2021 by Chad Vargas MD at [facility] Left: Leg [employer]sa [id number] / / Procedures Procedure Name Priority Date/Time Associated Diagnosis Comments PATHOLOGY TISSUE Routine 01/13/2025 10:1 4 AM CDT Gastric polyp IA ED EGD FLEX TRANSORAL DX 01/13/2025 9:52 AM CDT Gastric polyp EGD Routine 01/13/2025 9:40 AM CDT HEPATITIS C ANTIBODY Routine 04/03/2022 2:48 PM BLAST SETTER Alcohol use disorder, severe, in sustained remission Encounter for screening for other viral diseases from Last 3 Months or Most Recently Relevant to Health Maintenance Results * PATHOLOGY TISSUE (01/13/2025 10:14 AM CDT) Case Report Surgical Pathology Report Case: [id number] Authorizing Provider: Uyen Fulton MD Collected: 01/13/2025 10:14 AM Ordering Location: [facility] Received: 01/13/2025 11:00 AM Pathologist: Allyson Zapien MD Specimen: Gastric, Gastric polyp x2.. r/o adenoma 01/14/2025 10:30 AM CDT [facility] Final Diagnosis Stomach,polyps, biopsy (A) - Hyperplastic polyps with erosion - Negative for dysplasia 01/14/2025 10:30 AM CDT [facility] at 1030 CDT Microscopic Description and Comment Microscopic examination substantiates the final diagnosis. 01/14/2025 10:30 AM CDT [facility] Clinical History Stomach polyps 01/14/2025 10:30 AM CDT [facility] Gross Description Received in formalin, labeled with the patient's name Na Brasher, specimen A, consists of a 1.6 x 0.9 x 0.6 cm red-pink variegated polypoid nodule which is inked at the base and bisected. The cut surfaces show red-pink homogenous tissue. The specimen is entirely submitted in a single cassette labeled A1. RB 01/14/2025 10:30 AM CDT [facility] Pathologist Location at [facility] 01/14/2025 10:30 AM CDT [facility] Disclaimer The performance characteristics of all immunohistochemical and indirect immunofluorescence stains (if any) cited in this report were determined by the Histopathology Laboratory of [facility]. Some of these tests were developed by [...] attending (teaching) pathologist. 01/14/2025 10:30 AM CDT [facility] Embedded Images 01/14/2025 10:30 AM CDT [facility] Resection without Tumor GASTRIC CONTENTS SPECIMEN / Unknown 01/13/2025 10:14 AM CDT 01/13/2025 11:00 AM CDT Comment:Pre-op diagnosis: Gastric polyp [K31.7] us Uyen Fulton MD LAB - PATHOLOGY/CYTOLOGY ORDERA BLES Final Result [facility] [address] [phone] * EGD (01/13/2025 9:40 AM CDT) Report [...] and oxygen saturations were monitored continuously. The [id number] was introduced through the mouth, and advanced [...] clips were successfully placed (MR conditional). Clip marketing administrative assistant: [employer]. There was no bleeding during, or at [...] Clips (MR conditional) were placed (x3). Clip marketing administrative assistant: [employer]. - Normal first portion of the [...] non-contreras portions. Procedure Code(s): --- Professional --- 67442, Esophagogastroduo denoscopy, flexible, transoral; with endoscopic mucosal resection Diagnosis Code(s): --- Professional --- I85.00, Esophageal varices without bleeding K76.6, Portal hypertension K31.89, Other diseases of stomach and duodenum K31.7, Polyp of stomach and duodenum K31.9, Disease of stomach and duodenum, unspecified CPT copyright 2021 [employer]. All rights reserved. The codes documented in this report are preliminary and upon transportation maintenance operator review may be revised to meet current compliance requirements. Uyen Fulton MD 01/13/2025 10:23:01 AM This report has been signed electronically. Note Initiated On: 01/13/2025 9:40 AM Number of Addenda: [id number] [place] [address] 01/13/2025 9:40 AM CDT us Uyen Fulton MD GI PROCEDURE ORDERABLES Edited Result - Final [facility] * HEPATITIS C ANTIBODY (04/03/2022 2:48 PM BLAST SETTER) Hepatitis C Antibody Non-react reese Non-reac tive 04/03/2022 4:41 PM BLAST SETTER [facility] Comment:Hepatitis C Antibody screen indicates [...] Lab Venipuncture / Unknown 04/03/2022 2:48 PM BLAST SETTER 04/03/2022 3:02 PM BLAST SETTER Juan Miranda MD LAB - CHEMISTRY ORDERABLES Fi nal Result [place] [address] [place] [address], [facility] [phone] from Last 3 Months or Most Recently Relevant to Health Maintenance Insurance [facility] MANAGED MEDICARE ADV PAYOR GENERIC Advance Directives * Full Code (Latest Code Status on File) Date Activated Date Inactivated Comments 05/31/2021 11:50 PM 06/04/2021 5:45 PM * Full Code Date Activated Date Inactivated Comments 04/29/2021 10:54 PM 05/16/2021 12:51 PM * Full Code Date Activated Date Inactivated Comments 03/25/2021 4:16 PM 03/27/2021 4:33 PM Care Teams Volunteer Coordinator Relationship Specialty Start Date End Date Trish Hatch MD [address] [place] [address] PCP - General Family Medicine 04/08/23
== END 2025-03-25 08:29 | disposition home or self-care (01) ==
PROVIDERS: PCP Student in an Organized Health Care Education/Training Program; Visit Provider Nurse Practitioner
DX: K30 Functional dyspepsia (principal)
CPT/HCPCS: 78264; A9541